=== PATIENT | female | born 1950 | race Caucasian/White ===

== ENCOUNTER → 2016-04-06 | Outpatient (CLI) | payer OTHER ==
[~2016-04-06] MED LIST: ALBUAER19 INH; CLX40 PO; HYDR25TA4 PO; LAMO100T16 PO; OXYC-57 PO; POLY1DRO OPR; PRT/40 PO; TRAZ100T29 PO; TRAZ1TAB8 PO; VERA120T65 PO; losartan
[2016-04-06 12:43] LABS: BLOOD UREA NITROGEN 20 mg/dl (7-18); BUN/CREATININE RATIO 18.2 (10-20); CALCIUM 9.1 mg/dl (8.5-10.1); CARBON DIOXIDE 27 mmol/L (21-32); CHLORIDE 102 mmol/L (98-107); CHOLESTEROL 222 mg/dl (0-200); GLUCOSE 103 mg/dl (70-99); POTASSIUM 3.6 mmol/L (3.5-5.1); SODIUM 139 mmol/L (136-145)
[2016-04-06 12:50] LABS: CHOLESTEROL/HDL RATIO 4.1; HDL CHOLESTEROL 54 mg/dl; LDL CHOLESTEROL CALCULATED 134 mg/dl; TRIGLYCERIDES 169 mg/dl (0-150); VERY LOW DENSITY LIPOPROT CALC 34 mg/dl
--- NOTE | 2016-04-10 14:24 | CODING QUERY MEDICAL NECESSITY ---
SUPPORTING DIAGNOSIS NEEDED A supporting diagnosis is required for the test/procedure performed on this patient in order for us to be reimbursed by the patient's insurance. Please provide a supporting diagnosis for the following test/procedure listed below next to the test name along with your signature. *If there is no additional diagnosis for this patient that would support the following test/procedure please document that below next to the test/procedure. Test(s)/Procedure(s) that require a supporting diagnosis: * VITAMIN D 25 HYDROXY DIAGNOSIS: * DOS: 04/06/16 Provider Signature: Date: Thank you Laura Starr Health Information Management Once completed, please kindly fax back to [phone] For questions please call [phone]
== END | disposition home or self-care (01) ==
LOC: C.LABPVFM 08:19
PROVIDERS: ATTEND Nurse Practitioner
DX: E78.00 Pure hypercholesterolemia, unspecified (principal); I10 Essential (primary) hypertension; R51 Headache; R53.83 Other fatigue; E55.9 Vitamin D deficiency, unspecified

== ENCOUNTER → 2016-06-12 | Outpatient (CLI) | payer OTHER ==
[~2016-06-12] MED LIST changes: -OXYC-57 PO; +PANT40TA2 PO; -PRT/40 PO; -TRAZ1TAB8 PO; +TRAZ1TAB9 PO
== END | disposition home or self-care (01) ==
LOC: C.LABPVFM 09:25
PROVIDERS: ATTEND Nurse Practitioner
DX: E55.9 Vitamin D deficiency, unspecified (principal)

== ENCOUNTER → 2016-06-23 | Outpatient (CLI) | payer OTHER | END | disposition home or self-care (01) | LOC: C.LABPVFM 15:38 | PROVIDERS: ATTEND Nurse Practitioner Family | DX: M79.672 Pain in left foot (principal) ==

== ENCOUNTER → 2016-11-03 | Outpatient (CLI) | payer OTHER ==
[~2016-11-03] MED LIST changes: -PANT40TA2 PO; -POLY1DRO OPR; +PRT/40 PO; +TRAZ1TAB8 PO; -TRAZ1TAB9 PO
--- NOTE | 2016-11-03 12:24 | DIAGNOSTIC IMAGING REPORT ---
C-SPINE ROUTINE 4 OR 5 VIEWS CLINICAL HISTORY: F30.9, M54.2 chronic neck pain. COMPARISON STUDY: 03/10/2015 FINDINGS: There is slight straightening of normal cervical lordosis. No acute fractures or subluxations are visualized. The prevertebral soft tissues are normal. There are multilevel degenerative changes. There is uncovertebral joint spurring. There is possible right-sided foraminal narrowing at the C6-7 level.. IMPRESSION: Multilevel degenerative change. No fractures subluxations or destructive lesions are visualized Electronically signed by: Ruddy Atkins M.D. 11/03/2016 12:22 PM Dictated Date/Time: 11/03/2016 12:21 PM
== END | disposition home or self-care (01) ==
LOC: C.RADPV 11:41
PROVIDERS: ATTEND Nurse Practitioner
DX: M50.323 Other cervical disc degeneration at C6-C7 level (principal); F30.9 Manic episode, unspecified

== ENCOUNTER → 2016-12-05 | Outpatient (CLI) | payer OTHER ==
[~2016-12-05] MED LIST changes: -TRAZ1TAB8 PO
--- NOTE | 2016-12-12 13:37 | POLYSOMNOGRAPH REPORT ---
CLINICAL DATA: A 66-year-old female with a BMI of 44.4 referred by Pebbles Goldman for symptoms of insomnia and increasing daytime sleepiness. On the evening of 12/05/2016, a home sleep apnea test was performed using a Heyy type 3 monitor. RECORDING RESULTS: Total recording time was 10 hours. The patient's estimated sleep time and patient monitoring time was 7.7 hours. RESPIRATORY DATA: Mild sleep apnea was documented. The THIAGO was 8.5. There were 2 obstructive, 2 mixed, and 1 central apneic episode recorded. There were 60 hypopneic episodes recorded. The longest respiratory event was 37 seconds. OXIMETRY DATA: Nocturnal hypoxemia was seen. Oxygen moe was 82%. Mean saturation was 90%. Time below 89% was 48 minutes. HEART RATES: Heart rates ranged from 56-64 beats per minute. SNORING DATA: Snoring was recorded intermittently throughout the night. The patient was noted to have snoring throughout the test with a few apneas and intermittent hypopneas occurring primarily when she was sleeping supine. IMPRESSION: Mild sleep apnea/hypopnea with an THIAGO of 8.5 with nocturnal hypoxemia occurring primarily while supine. RECOMMENDATIONS: The patient may benefit from weight loss, positional therapy, use of an oral appliance, or a repeat sleep study with CPAP. Clinical correlation is needed. [facility]
== END | disposition home or self-care (01) ==
LOC: C.NEUR 09:50
PROVIDERS: ATTEND Nurse Practitioner
DX: R40.0 Somnolence (principal); R53.83 Other fatigue

== ENCOUNTER → 2016-12-12 | Outpatient (CLI) | payer OTHER ==
[2016-12-12 13:56] LABS: BLOOD UREA NITROGEN 18 mg/dl (7-18); BUN/CREATININE RATIO 16.7 (10-20); CALCIUM 9.2 mg/dl (8.5-10.1); CARBON DIOXIDE 27 mmol/L (21-32); CHLORIDE 105 mmol/L (98-107); GLUCOSE 101 mg/dl (70-99); POTASSIUM 3.5 mmol/L (3.5-5.1); SODIUM 138 mmol/L (136-145)
[2016-12-12 13:59] LABS: CHOLESTEROL 205 mg/dl (0-200); CHOLESTEROL/HDL RATIO 4.1; HDL CHOLESTEROL 50 mg/dl; LDL CHOLESTEROL CALCULATED 128 mg/dl; TRIGLYCERIDES 135 mg/dl (0-150); VERY LOW DENSITY LIPOPROT CALC 27 mg/dl
== END | disposition home or self-care (01) ==
LOC: C.LABPVFM 09:03
PROVIDERS: ATTEND Nurse Practitioner
DX: E55.9 Vitamin D deficiency, unspecified (principal); E78.00 Pure hypercholesterolemia, unspecified; I10 Essential (primary) hypertension

== ENCOUNTER 2017-03-30 06:48 | Inpatient (IN) | payer OTHER ==
[2017-03-07 10:26] VITALS: BMI 46.0
--- NOTE | 2017-03-07 11:22 | PAT Medication Instructions ---
Service Date Mar 07, 2017. Current Home Medication List Cholecalciferol (Vitamin D3), 1 CAP PO QAM Citalopram (Citalopram Hydrobromide), 40 MG PO QAM Hydrochlorothiazide (Hctz), 25 MG PO QAM Lamotrigine (Lamictal), 100 MG PO BID Losartan Potassium (Cozaar), 25 MG PO QAM Pantoprazole (Pantoprazole Sodium), 40 MG PO BID Trazodone Hcl (Trazodone), 150 MG PO HS Verapamil (Calan), 120 MG PO QAM Medication Instructions For Your Scheduled Surgery - Hold the following medications the morning of surgery: Cholecalciferol (Vitamin D3), 1 CAP PO QAM Hydrochlorothiazide (Hctz), 25 MG PO QAM Losartan Potassium (Cozaar), 25 MG PO QAM - Take the following medications the morning of surgery with a sip of water: Lamotrigine (Lamictal), 100 MG PO BID Citalopram (Citalopram Hydrobromide), 40 MG PO QAM Pantoprazole (Pantoprazole Sodium), 40 MG PO BID Verapamil (Calan), 120 MG PO QAM - Take the following medications as scheduled the night before surgery: Trazodone Hcl (Trazodone), 150 MG PO HS Lamotrigine (Lamictal), 100 MG PO BID Pantoprazole (Pantoprazole Sodium), 40 MG PO BID If you have any questions please call us at [phone] or [phone] or [phone]
[2017-03-07 11:34] LABS: PTT PATIENT 28.5 SECONDS (21.0-31.0)
[2017-03-07 11:43] LABS: BASO % 0.4 %; BASO ABS # 0.04 K/uL (0-0.2); EOS % 2.2 %; HEMATOCRIT 38.1 % (37-47); HEMOGLOBIN 12.9 g/dL (12.0-16.0); IG# 0.02 K/uL (0.00-0.02); LYMPH % 23.8 %; LYMPH ABS # 2.16 K/uL (1.2-3.4); MEAN CELL VOLUME 84.7 fL (80-100); MEAN CORPUSCULAR HEMOGLOBIN 28.7 pg (25-34); MEAN CORPUSCULAR HGB CONC 33.9 g/dl (32-36); MEAN PLATELET VOLUME 10.2 fL (7.4-10.4); MONO % 4.7 %; MONO ABS # 0.43 K/uL (0.11-0.59); NEUT % 68.7 %; NEUT ABS # 6.22 K/uL (1.4-6.5); PLATELET COUNT 197 K/uL (130-400); RED CELL DISTRIBUTION WIDTH CV 14.3 % (11.5-14.5); RED CELL DISTRIBUTION WIDTH SD 44.1 fL (36.4-46.3); WHITE BLOOD COUNT 9.07 K/uL (4.8-10.8)
--- NOTE | 2017-03-07 12:05 | DIAGNOSTIC IMAGING REPORT ---
TWO VIEW CHEST CLINICAL HISTORY: Preoperative examination. FINDINGS: PA and lateral chest radiographs are compared to study dated 10/16/2014. Correlation is made with an 01/31/[address] A right subclavian central venous infusion port is unchanged in position. The heart is enlarged and there is atherosclerotic calcification of the thoracic aorta. The pulmonary vasculature is noncongested. Chronic interstitial thickening and scattered calcified granulomas are similar to previous. No airspace consolidation or pleural effusion is identified. There is no pneumothorax. The skeletal structures are osteopenic. Degenerative change is seen throughout the thoracic spine. Cholecystectomy clips are noted. IMPRESSION: Cardiomegaly with no active disease in the chest. Electronically signed by: Satya Gonzalez M.D. 03/07/2017 12:03 PM Dictated Date/Time: 03/07/2017 12:02 PM
[2017-03-07 13:38] LABS: CALCIUM 9.1 mg/dl (8.5-10.1); CREATININE 1.13 mg/dl (0.60-1.20); POTASSIUM 3.3 mmol/L (3.5-5.1)
--- NOTE | 2017-03-29 07:24 | HISTORY & PHYSICAL EXAMINATION ---
DATE OF ADMISSION: 03/30/2017 CHIEF COMPLAINT: Primary osteoarthritis of the right knee. HISTORY OF PRESENT ILLNESS: Gay is a pleasant 66-year-old female who has been having a several year history of increasing right knee pain. X-rays and clinical examination have been diagnostic for primary osteoarthritis of the right knee. After failing extensive conservative treatment including multiple injections, she elected to proceed with a right total knee arthroplasty. She understands all the risks, benefits, alternatives to the procedure and has elected to proceed. PAST MEDICAL HISTORY: Significant for hypertension, sleep apnea, bipolar disorder, osteoarthritis, obesity, GERD. PAST SURGICAL HISTORY: Significant for hysterectomy, port placement, lymph node biopsy, ileostomy with reversal, cholecystectomy, ORIF of the right ankle and cataracts. ALLERGIES: INCLUDE CIPRO, IMITREX, LIDOCAINE, NOVOCAIN, PROCAINE, QUINOLONES, SUMATRIPTAN AND THEOPHYLLINE. MEDICATIONS Include pantoprazole 40 mg twice a day, lamotrigine 100 mg twice a day, trazodone 150 mg at bedtime, losartan 25 mg daily, verapamil 120 mg daily, hydrochlorothiazide 25 mg daily, Celexa 40 mg daily and Vitamin D3 2000 units daily. SOCIAL HISTORY: She is . She rarely drinks. She does little activity and she is on disability for bipolar disorder. FAMILY HISTORY: Significant for brain tumor and lung cancer. REVIEW OF SYSTEMS: She complains mostly of right knee pain. All other pertinent review of systems are negative. PHYSICAL EXAMINATION: CONSTITUTIONAL: She is a well-developed, well-nourished female in no apparent distress. HEENT: Pupils equal, round and reactive to light. Extraocular movements intact. Oral mucosa is pink and moist. HEART: Regular rate per radial pulse. LUNGS: Sahra symmetrically bilaterally with no audible breath sounds. ABDOMEN: Soft, nontender, nondistended. MUSCULOSKELETAL: On physical examination of the right knee, she has a large soft tissue envelope and a slight varus deformity. She has tenderness to palpation over the distal femoral condyle and over the medial joint line. She has good range of motion from 0-130 degrees. No instability. She has 5/5 muscle strength with quad and hamstring testing. IMAGING DATA: X-rays of the right knee do show advanced osteoarthritis mostly involving the medial compartment, joint space narrowing and osteophyte formation. IMPRESSION: Medial compartmental arthritis of the right knee. PLAN: We will proceed with a right total knee arthroplasty. Postoperatively, she will be kept in the hospital for 2 midnights for postoperative medical management. We will start her on aspirin for DVT prophylaxis.
[~2017-03-30] VITALS: Ht 160 cm; Wt 120.3 kg
[~2017-03-30 06:48] MED LIST changes: +ACETAMINOPHEN 500 MG TAB PO SCH; -ALBUAER19 INH; +BUPIVACAINE 0.25% 30 ML VIAL ONE; +BUPIVACAINE 0.5 % 5 MG/1 ML PF 10ML VIAL ONE; +CEFAZOLIN 3000MG IV PUSH 15 ML IV SCH; +CHOL2000 PO; +FAMOTIDINE 20 MG TAB PO SCH; +GABAPENTIN 300 MG CAP PO SCH; +LACTATED RINGER'S 1000ML 1,000 ML IV SCH; +LACTATED RINGER'S 1000ML 500 ML IV SCH; +LACTATED RINGER'S 1000ML IV SCH; +LOSA1TAB PO; +PANT40TA2 PO; -PRT/40 PO; +ROPIVACAINE 5MG/ML 30 ML 150 MG, BUPIVACAINE 0.5% MPF INJ 30 ML, EpINEphrine HCL INJ 0.... INFIL SCH; +VERA120T15 PO; -VERA120T65 PO; -losartan
--- NOTE | 2017-03-30 06:53 | History & Physical Bridge Note ---
H&P Re-Evaluation Bridge Note: I have examined the patient, reviewed the History & Physical and in the interval since the performance of the History & Physical I have noted the following changes of clinical significance: No changes noted
[2017-03-30] MEDS ORDERED: PROPOFOL IV EMULSION 10 MG/ML 20 ML VIAL IV ONE (07:21)
[2017-03-30] MEDS ORDERED: MIDAZOLAM HCL 1 MG/ML 2ML VIAL ONE (07:22)
[2017-03-30] MEDS ORDERED: FENTANYL CITRATE INJ 50 MCG/1 ML 2 ML VIAL ONE (07:22)
[2017-03-30 07:25] VITALS: BP 112/70; PULSE 84; TEMP 36.7; O2SAT 95; Ht 160 cm; Wt 120.3 kg
[2017-03-30] MEDS ORDERED: BACITRACIN 50000 UNIT VIAL ONE (07:35)
[2017-03-30] MEDS ORDERED: ORTHO JOINT ANESTHETIC ONE (07:35)
[2017-03-30] MEDS ORDERED: ONDANSETRON INJ 2 MG/ML 2 ML VIAL IV PRN ×3 (08:00→10:15)
[2017-03-30] MEDS ORDERED: EpHEDrine SULFATE INJ 50 MG/ML AMP IV PRN ×2 (08:00→09:45)
[2017-03-30] MEDS ORDERED: ATROPINE SULFATE 0.1 MG/ML 5ML SYR IV PRN ×2 (08:00→09:45)
[2017-03-30] MEDS ORDERED: FENTANYL CITRATE INJ 50 MCG/1 ML 2 ML VIAL IV PRN (08:00)
[2017-03-30] MEDS: TRANEXAMIC ACID INJ 1,000 MG in SYRINGE 0 ML IV SCH ×2 (08:31→12:56)
[2017-03-30] MEDS ORDERED: NALOXONE HCL 0.4 MG/1 ML VIAL/CARP IV PRN (09:45)
[2017-03-30] MEDS ORDERED: FLUMAZENIL 0.1 MG/1 ML 10 ML VIAL IV PRN (09:45)
[2017-03-30] MEDS ORDERED: PROMETHAZINE HCL INJ 12.5 MG in SODIUM CHLORIDE 0.9% 50ML 50 ML IV PRN (09:45)
--- NOTE | 2017-03-30 10:13 | [facility] Post Operative Brief Note ---
Immediate Operative Summary Operative Date Mar 30, 2017. Pre-Operative Diagnosis Degenerative Joint Disease Right Knee Post-Operative Diagnosis Degenerative Joint Disease Right Knee Procedure(s) Performed Right Total Knee Arthroplasty Surgeon Bentley Automatic Spinning Lathe Setter Surgeon(s) Marco A Estimated Blood Loss 10ml Findings Consistent with Post-Op Diagnosis Specimens Right Knee Bone and Tissue Anesthesia Type MAC Spinal Regional Complication(s) none Disposition Disposition: Recovery Room / PACU
[2017-03-30] MEDS ORDERED: MoRPHine SULFATE 2 MG/ML CARP IV PRN (10:15)
[2017-03-30] MEDS ORDERED: SOD PHOSPHATE/SOD BIPHOSPHATE ENEMA 132 ML BTL PR PRN (10:15)
[2017-03-30] MEDS ORDERED: MAGNESIUM HYDROXIDE SUSP 30 ML UDC PO PRN (10:15)
[2017-03-30] MEDS ORDERED: BISACODYL 10 MG SUPP PR PRN (10:15)
[2017-03-30] MEDS ORDERED: CEFAZOLIN IV 2,000 MG in DEXTROSE 5% 50ML 50 ML IV SCH (10:15)
[2017-03-30] MEDS ORDERED: METOCLOPRAMIDE HCL INJ 5 MG/ML 2 ML VIAL IV PRN (10:15)
--- NOTE | 2017-03-30 11:24 | Anesthesiology Progress Note ---
Anesthesia Post Op Note Date & Time Mar 30, 2017 at 11:23 Vital Signs Pain Intensity: 0 Vital Signs Past 12 Hours Date Time Temp Pulse Resp B/P (MAP) Pulse Ox O2 Delivery O2 Flow Rate FiO2 03/30/17 11:20 73 22 98 03/30/17 11:20 36.8 72 22 03/30/17 11:16 131/57 03/30/17 11:15 71 20 99 03/30/17 11:15 71 20 03/30/17 11:11 124/63 03/30/17 11:10 74 11 97 03/30/17 11:10 75 11 03/30/17 11:06 127/66 03/30/17 11:05 72 14 96 03/30/17 11:05 72 14 03/30/17 11:01 128/53 03/30/17 11:00 71 14 03/30/17 11:00 72 14 97 03/30/17 10:56 130/57 03/30/17 10:55 73 16 96 03/30/17 10:55 75 16 03/30/17 10:51 104/61 03/30/17 10:50 75 14 100 03/30/17 10:50 75 14 03/30/17 10:47 98/47 03/30/17 10:35 36.5 74 16 98/51 98 Oxymask 4 03/30/17 07:25 36.7 84 20 112/70 95 Room Air Notes Mental Status: alert / awake / arousable, participated in evaluation Pt Amnestic to Procedure: Yes Nausea / Vomiting: adequately controlled Pain: adequately controlled Airway Patency, RR, SpO2: stable & adequate BP & HR: stable & adequate Hydration State: stable & adequate Neuraxial Anesthesia: was administered, sensory block is resolving Anesthetic Complications: no major complications apparent Patient satisfied with her care today. Denied any headache but stated neck muscles slightly sore from positioning but otherwise no issues. VSS. No complications.
--- NOTE | 2017-03-30 11:32 | DIAGNOSTIC IMAGING REPORT ---
R KNEE 1 OR 2 VIEWS ROUTINE CLINICAL HISTORY: AP/LATERAL IN PACU RIGHT KNEE postoperative evaluation COMPARISON: None. DISCUSSION: Anatomic alignment status post total right knee arthroplasty. Good contact between prosthetic and underlying bone. Surgical drains are in position. Expected soft tissue postoperative change IMPRESSION: Anatomic alignment status post total right knee arthroplasty. The above report was generated using voice recognition software. It may contain grammatical, syntax or spelling errors. Electronically signed by: Samy Edmond M.D. 03/30/2017 11:30 AM Dictated Date/Time: 03/30/2017 11:30 AM
[2017-03-30 11:35] VITALS: BP 126/64; PULSE 71; TEMP 36.7; O2SAT 93
[2017-03-30] MEDS: SODIUM CHLORIDE 0.9% 1000ML 1,000 ML IV SCH ×2 (11:45→23:29)
[2017-03-30 12:05] VITALS: BP 135/67; PULSE 71; O2SAT 94
[2017-03-30] MEDS: KETOROLAC TROMETHAMINE 30 MG/ML VIAL IV. SCH ×3 (13:23→23:47)
[2017-03-30 13:35] VITALS: BP 130/64; PULSE 70; TEMP 36.8; O2SAT 94
[2017-03-30] MEDS: ACETAMINOPHEN IV 1,000 MG in EMPTY BAG 0 ML IV SCH ×2 (13:55→21:21)
--- NOTE | 2017-03-30 15:20 | OPERATIVE REPORT ---
DATE OF OPERATION: 03/30/2017 PREOPERATIVE DIAGNOSIS: Primary osteoarthritis of the right knee. POSTOPERATIVE DIAGNOSIS: Same. PROCEDURE: Right total knee arthroplasty. SURGEON: Dr. Nick Hagan. IRONWORKER HELPER SHOP: Louie Strickland PA-C, whose assistance was necessary for retraction and closure. ANESTHESIA: Spinal with a right adductor nerve block. COMPLICATIONS: None. CONDITION: Stable to PACU. INDICATIONS: Gay is a pleasant 66-year-old female who presented to my office with chronic increasing right knee pain. X-rays and clinical examination were diagnostic for primary osteoarthritis of the right knee. After failing conservative treatment, she elected to undergo a right total knee arthroplasty. DESCRIPTION OF PROCEDURE: On 03/30/2017, she arrived at [facility] for the above procedure. She was seen in the preoperative holding area and the operative extremity was identified and signed. She was given a preoperative antibiotic and a right adductor nerve block and a spinal anesthetic. She was taken back to the operating room, laid on the table in supine position and given basic sedation. The right knee was then prepped and draped in sterile fashion. Time-out was done and the patient's operative extremity was properly identified. A midline incision was made directly over the patella. Dissection was taken down through the fascia and a medial parapatellar arthrotomy was used. The medial retinaculum was released and the knee was flexed. A drill was sent down the center of the femoral canal, followed by an intramedullary vilma. Off that vilma, a distal femoral cutting block was placed. A 12 mm was resected off the distal femur at 5 degrees of valgus. A posterior referencing guide was then used to measure the distal femur and it measured to be a size 65. Two drill holes were placed in 3 degrees of external rotation and a 4-in-1 cutting block was impacted into place. Anterior, posterior and chamfer cuts were then made. A box cutting guide was then impacted into place and the box was resected for the posterior stabilizing component. The proximal tibia was then exposed. A drill was sent down the center of the tibial canal followed by an intramedullary vilma. Off that vilma, a proximal tibial resection guide was placed and 2 mm was resected off the low medial side. The tibia measured to be a size 67 and it was set in the appropriate rotation, drilled and then punched. The posterior aspect of the knee was opened up and any additional soft tissue remnants or bony osteophytes were removed. Trial components were placed. The knee was brought through a full range of motion and felt to be stable. The patella was then everted and 8 mm was resected off the posterior aspect of the patella. The patella measured to be a size 31 and 3 peg holes were drilled. Trials were then removed. The surrounding soft tissues of the knee were then injected with 100 mL of an orthopedic pain control cocktail. The tibial, femoral and patellar components were then cemented in place with Palacos-G cement. Once cement had hardened, several polys were trialed and a size 10 seemed to be the best fit. The final size 10 poly was then snapped into place and the anterior bar was locked. The knee was then irrigated with 3 liters of normal saline solution with bacitracin. The 2 drains were placed. The extensor mechanism was closed with #2 FiberWire suture in the superior medial aspect and #1 Vicryl, both proximally and distally. The skin was closed with 2-0 Vicryl, 3-0 V-Loc suture and mari. She was then placed in a soft compressive dressing and taken to the postanesthesia care unit in stable condition. She tolerated the procedure well. IMPLANTS USED: I used a [employer] total knee arthroplasty system with a size 65 right femur, a size 67 tibia, a size 31 x 8 patella and a size 10 posterior stabilized polyethylene insert. I attest to the content of the Intraoperative Record and any orders documented therein. Any exception s are noted below.
[2017-03-30] MEDS: OXYCODONE HCL IR 5 MG TAB (IMMEDIATE RELEASE) PO PRN (16:05)
[2017-03-30] MEDS: CEFAZOLIN IV 2,000 MG in SYRINGE 0 ML IV SCH ×2 (17:53→23:46)
[2017-03-30 20:00] VITALS: BP 106/64; PULSE 63; TEMP 36.7; O2SAT 94
[2017-03-30] MEDS: DOCUSATE SODIUM 100 MG CAP PO SCH (21:00)
[2017-03-30] MEDS: PANTOprazole SOD 40 MG TAB PO SCH (21:17)
[2017-03-30] MEDS: TRAZODONE HCL 100 MG TAB PO SCH (21:17)
[2017-03-30] MEDS: ASPIRIN 325 MG ECTAB PO SCH (21:17)
[2017-03-30] MEDS: SENNA 8.6 MG TAB PO SCH (21:17)
[2017-03-30 23:25] VITALS: BP 117/66; PULSE 53; TEMP 36.5; O2SAT 96
[2017-03-31 03:41] VITALS: BP 139/64; PULSE 68; TEMP 36.5; O2SAT 94
[2017-03-31] MEDS: KETOROLAC TROMETHAMINE 30 MG/ML VIAL IV. SCH ×4 (05:31→23:53)
[2017-03-31] MEDS: ACETAMINOPHEN IV 1,000 MG in EMPTY BAG 0 ML IV SCH ×3 (05:32→21:58)
[2017-03-31 05:50] LABS: HEMATOCRIT 32.3 % (37-47); HEMOGLOBIN 10.8 g/dL (12.0-16.0); MEAN CELL VOLUME 85.2 fL (80-100); MEAN CORPUSCULAR HEMOGLOBIN 28.5 pg (25-34); MEAN CORPUSCULAR HGB CONC 33.4 g/dl (32-36); MEAN PLATELET VOLUME 10.1 fL (7.4-10.4); PLATELET COUNT 163 K/uL (130-400); RED CELL DISTRIBUTION WIDTH CV 14.5 % (11.5-14.5); RED CELL DISTRIBUTION WIDTH SD 44.6 fL (36.4-46.3); WHITE BLOOD COUNT 14.98 K/uL (4.8-10.8)
[2017-03-31] MEDS ORDERED: NURSING DECISION MEDICATION ORDER SCH (06:15)
[2017-03-31 06:24] LABS: CALCIUM 8.3 mg/dl (8.5-10.1); CREATININE 1.46 mg/dl (0.60-1.20); POTASSIUM 3.7 mmol/L (3.5-5.1)
[2017-03-31 06:40] VITALS: BP 101/58; PULSE 59; TEMP 36.5; O2SAT 95
[2017-03-31] MEDS: OXYCODONE HCL IR 5 MG TAB (IMMEDIATE RELEASE) PO PRN ×3 (07:57→22:06)
[2017-03-31] MEDS: CITALOPRAM 40 MG TAB PO SCH (08:02)
[2017-03-31] MEDS: LOSARTAN POTASSIUM 25 MG TAB PO SCH (08:02)
[2017-03-31] MEDS: DOCUSATE SODIUM 100 MG CAP PO SCH ×2 (08:02→21:00)
[2017-03-31] MEDS: MULTIVITAMIN TAB PO SCH (08:02)
[2017-03-31] MEDS: VERAPAMIL HCL 120 MG TABCR PO SCH (08:02)
[2017-03-31] MEDS: PANTOprazole SOD 40 MG TAB PO SCH ×2 (08:03→21:57)
[2017-03-31] MEDS: HYDROCHLOROTHIAZIDE 25 MG TAB PO SCH (08:03)
[2017-03-31] MEDS: ASPIRIN 325 MG ECTAB PO SCH ×2 (08:03→23:53)
[2017-03-31 08:07] VITALS: BP 158/64; PULSE 71
[2017-03-31] MEDS: SODIUM CHLORIDE 0.9% 1000ML 1,000 ML IV SCH (09:00)
--- NOTE | 2017-03-31 09:28 | PROGRESS NOTE ---
DATE: 03/31/2017 CHIEF COMPLAINT: Status post right total knee arthroplasty postop day #1. PROGRESS: Gay was seen and examined at bedside today. Overall, she is doing fairly well. She has some soreness in the knee, but it is not too bad. She has been up and using the bathroom often. The drains had fallen out overnight. She has no other complaints. PHYSICAL EXAMINATION: RIGHT LEG: The dressing is clean and dry and the drains have been pulled. Her leg lengths are equal. She has active dorsiflexion and plantarflexion of her right ankle and sensation is intact. LABORATORY DATA: She has an H&H today of 10.8 and 32.3. Her glucose is 125. Her vital signs are all stable on room air and she is voiding on her own. X-rays postoperatively of the right knee showed the prosthesis to be in anatomical alignment without any evidence of fracture, dislocation or loosening. IMPRESSION: Status post right total knee arthroplasty postop day #1. PLAN: At this point, she is doing very well. She will be up and ambulating more today with physical therapy. Tomorrow morning, the nurses can change the dressing and we will look at discharging her to home.
[2017-03-31 11:45] VITALS: BP 102/61; PULSE 53; TEMP 36.7; O2SAT 93
[2017-03-31 15:43] VITALS: BP 112/55; PULSE 61; TEMP 37; O2SAT 93
[2017-03-31] MEDS: SENNA 8.6 MG TAB PO SCH (21:00)
[2017-03-31] MEDS: TRAZODONE HCL 100 MG TAB PO SCH (21:57)
[2017-03-31 23:05] VITALS: BP_SYST 81; BP_SYST 87; BP_SYST 89; BP_DIAS 35; BP_DIAS 53; BP_DIAS 58; PULSE 65; TEMP 36.6; O2SAT 95
[2017-04-01 00:45] VITALS: BP 104/51; PULSE 61
[2017-04-01] MEDS: ACETAMINOPHEN IV 1,000 MG in EMPTY BAG 0 ML IV SCH (05:56)
[2017-04-01] MEDS: KETOROLAC TROMETHAMINE 30 MG/ML VIAL IV. SCH (05:56)
[2017-04-01 07:29] VITALS: BP 138/66; PULSE 66; TEMP 36.6; O2SAT 91
[2017-04-01] MEDS: DOCUSATE SODIUM 100 MG CAP PO SCH (08:53)
[2017-04-01] MEDS: VERAPAMIL HCL 120 MG TABCR PO SCH (08:54)
[2017-04-01] MEDS: PANTOprazole SOD 40 MG TAB PO SCH (08:54)
[2017-04-01] MEDS: CITALOPRAM 40 MG TAB PO SCH (08:54)
[2017-04-01] MEDS: HYDROCHLOROTHIAZIDE 25 MG TAB PO SCH (08:54)
[2017-04-01] MEDS: ASPIRIN 325 MG ECTAB PO SCH (08:55)
[2017-04-01] MEDS: MULTIVITAMIN TAB PO SCH (08:55)
[2017-04-01] MEDS: LOSARTAN POTASSIUM 25 MG TAB PO SCH (08:55)
[2017-04-01] MEDS ORDERED: RXC5 PO (09:33)
[2017-04-01] MEDS ORDERED: ASPEC325 PO (09:33)
--- NOTE | 2017-04-01 09:35 | Discharge Instructions ---
Discharge Instructions Date of Service Apr 01, 2017. Admission Reason for Admission: Right Knee Degenerative Joint Disease Discharge Discharge Diagnosis / Problem: Right Total Knee Discharge Goals Goal(s): Decrease discomfort, Improve function Activity Recommendations Activity Limitations: as noted below . Instructions / Follow-Up Instructions / Follow-Up Activity and Therapy Recommendations: * If you are using [facility] then Physical Therapy will be provided until they feel you are ready to start Outpatient Physical Therapy. If you are not using a Home Health agency then Outpatient Physical Therapy should start about 3-5 days from your day of surgery. Therapy will last about 6-10 weeks * It is important not to put a pillow under your knee when you are relaxing or sleeping. It is just as important to make sure you are getting your knee perfectly straight as it is to regain your knee bend. * You were shown a series of exercises in the hospital. Do these exercises three times each day including the exercises you were shown in physical therapy. * Get up and walk several times each day. For the first four weeks, try not to stand or walk for more than one hour at a time. If you do stand or walk for more than one hour, you will not hurt anything, but your leg will likely swell. * As you feel comfortable, you may change from the walker or crutches to a cane and then to independent walking. Medications: * Narcotic You will likely be sent home from the hospital with a prescription for the narcotic pain medication that worked best throughout your stay. * Aspirin Most patients will be required to take Aspirin 325mg twice a day for 6 weeks after surgery. This is obtained [id number] and a prescription is not necessary. * Other medications may be prescribed for specific circumstances. If you have any questions, please call the office at . * Resume previous home medications unless otherwise instructed TEDs/Elastic Stockings: The white elastic stockings help limit swelling and prevent blood clots from forming in your legs.~ The more you wear them, the more they work. Wear them for six weeks. Showering: You may shower 5 days from the day of surgery. Let the soapy shower water run over the mari. Do not scrub or soak the incision. Things To Watch For: * Drainage from the incision site that occurs more than one week after your surgery. * Increased redness at the incision site. * Fever above 102 degrees Fahrenheit. * Unusual chest pain or shortness of breath. * Call [facility] at with any of the above problems Follow-Up Visit: Follow-up with Dr. Hagan 2 weeks after your day of surgery. An appointment was probably scheduled when you signed-up for surgery in the office. If you have any questions call Office Instructions: More detailed instructions as well as Frequently Asked Questions were provided in a folder by our office when you signed-up for surgery. Please review these instructions when you get home. If you have any further questions or concerns, please feel free to call the office at [phone] Current Hospital Diet Patient's current hospital diet: Regular Diet Discharge Diet Recommended Diet: Regular Diet Procedures Procedures Performed: Right Total Knee Arthroplasty Pending Studies Studies pending at discharge: no Medical Emergencies . Who to Call and When: Medical Emergencies: If at any time you feel your situation is an emergency, please call [phone] immediately. . Non-Emergent Contact Non-Emergency issues call your: Surgeon . "Provider Documentation" section prepared by Nick Hagan. . VTE Core Measure Inpt VTE Proph given/why not?: Other Anticoagulation (Aspirin 325 twice a day for 6 weeks)
--- NOTE | 2017-04-01 09:50 | PROGRESS NOTE ---
DATE: 04/01/2017 CHIEF COMPLAINT: Status post right total knee arthroplasty postop day #2. PROGRESS: Gay was seen and examined at bedside today. Overall, she is doing fairly well. She has been up and ambulating well with physical therapy. She was a little hypotensive yesterday, but her blood pressure is much better today. She said she does not feel dizzy or unsteady when she is ambulating. PHYSICAL EXAMINATION: RIGHT KNEE: The dressing has been changed and the drain has been pulled. She is lying with her leg out in full extension. She is neurovascularly intact. IMPRESSION: Status post right total knee arthroplasty postop day #2. PLAN: At this point, she is doing fairly well. Her blood pressures have returned to normal. I encouraged a lot of p.o. fluid intake and she is not having any dizziness. She has been working well with physical therapy. She is on aspirin for DVT prophylaxis and we will likely discharge her to home later today.
[2017-04-01 09:58] VITALS: BP 138/66; PULSE 66; TEMP 36.6; O2SAT 91
--- NOTE | 2017-04-01 10:00 | DISCHARGE SUMMARY ---
DISCHARGE DIAGNOSIS: Primary osteoarthritis of the right knee. PROCEDURE: Right total knee arthroplasty on 03/30/[address] Nick Hagan. DISCHARGE INSTRUCTIONS: 1. Aspirin 325 mg twice a day for 6 weeks. 2. Oxycodone 5-10 mg every 4 hours as needed for pain. 3. Vitamin D 2000 units daily. 4. Celexa 40 mg daily. 5. HCTZ 25 mg daily. 6. Lamictal 100 mg twice a day. 7. Cozaar 25 mg daily. 8. Protonix 40 mg daily. 9. Trazodone 150 mg at night. 10. Verapamil 120 mg daily. 11. Daily dry dressing changes. 12. Follow up with Dr. Hagan in 2 weeks. 13. Call the office of Dr. Hagan with any questions or concerns. HOSPITAL COURSE: Gay is a pleasant 66-year-old female who presented to my office with complaints of chronic right knee pain. X-rays and clinical examination were diagnostic for primary osteoarthritis of the right knee. After failing conservative treatment, she elected to undergo a right total knee arthroplasty. On 03/30/2017, she arrived at [facility] and underwent a right knee replacement without complication. She had a spinal anesthetic and a right adductor nerve block. Postoperatively, she was started on aspirin for DVT prophylaxis and discharged to general orthopedic floor. Her hospital course was uneventful. On postop day #1, her H&H was stable at 10.8 and 32.3. She was up and ambulating well with physical therapy. Her pain was controlled. On postop day #2, she was a little hypotensive early in the morning, but her blood pressure returned to normal. She was up and ambulating well with physical therapy and she was drinking a lot of fluids. She was subsequently discharged to home with the [facility] and the above instructions.
== END 2017-04-01 12:00 | disposition home health service (06) | DRG 470 ==
LOC: C.ACU 06:48 → C.MSW 07:51 → ENRESERV 11:14
PROVIDERS: ADMIT Orthopaedic Surgery; ATTEND Orthopaedic Surgery
PROC: 0SRC0J9 Replacement of Right Knee Joint with Synthetic Substitute, Cemented, Open Approach (ICD-10-PCS; principal; 2017-03-30 09:10)
DX: M17.11 Unilateral primary osteoarthritis, right knee (principal); I10 Essential (primary) hypertension; G47.30 Sleep apnea, unspecified; F31.9 Bipolar disorder, unspecified; E66.9 Obesity, unspecified; K21.9 Gastro-esophageal reflux disease without esophagitis

== ENCOUNTER → 2017-09-26 | Outpatient (CLI) | payer OTHER ==
[~2017-09-26] MED LIST changes: -ACETAMINOPHEN 500 MG TAB PO SCH; +AMT50 PO; -BUPIVACAINE 0.25% 30 ML VIAL ONE; -BUPIVACAINE 0.5 % 5 MG/1 ML PF 10ML VIAL ONE; -CEFAZOLIN 3000MG IV PUSH 15 ML IV SCH; -FAMOTIDINE 20 MG TAB PO SCH; -GABAPENTIN 300 MG CAP PO SCH; +HYDR-5688 PO; +KETO10TA PO; -LACTATED RINGER'S 1000ML 1,000 ML IV SCH; -LACTATED RINGER'S 1000ML 500 ML IV SCH; -LACTATED RINGER'S 1000ML IV SCH; +MECL1TAB42 PO; +MULT-506 PO; +ONDA4TAB10 SL; -ROPIVACAINE 5MG/ML 30 ML 150 MG, BUPIVACAINE 0.5% MPF INJ 30 ML, EpINEphrine HCL INJ 0.... INFIL SCH; -TRAZ100T29 PO; +TRAZ1TAB52 PO
== END | disposition home or self-care (01) ==
LOC: C.PATHSPEC 11:56
PROVIDERS: ATTEND Plastic Surgery
DX: L98.429 Non-pressure chronic ulcer of back with unspecified severity (principal)

== ENCOUNTER 2017-10-08 04:59 | Day surgery (SDC) | payer OTHER ==
[2017-09-26 16:42] VITALS: BMI 46.0
[~2017-10-08] VITALS: Ht 160 cm; Wt 119.1 kg
[~2017-10-08 04:59] MED LIST changes: +CLINDAMYCIN IV 900 MG in DEXTROSE 5% 50ML IV SCH; -HYDR-5688 PO; -KETO10TA PO; -MECL1TAB42 PO; -ONDA4TAB10 SL
[2017-10-08 05:39] VITALS: BP 167/84; PULSE 87; TEMP 36.8; O2SAT 95; Ht 160 cm; Wt 119.1 kg
[2017-10-08] MEDS ORDERED: CLINDAMYCIN IV 900 MG in DEXTROSE 5% 50ML IV SCH (06:00)
[2017-10-08] MEDS ORDERED: LACTATED RINGER'S 1000ML 1,000 ML IV SCH ×2 (06:00→07:58)
[2017-10-08] MEDS ORDERED: PROPOFOL IV EMULSION 10 MG/ML 20 ML VIAL ONE (06:47)
[2017-10-08] MEDS ORDERED: ONDANSETRON INJ 2 MG/ML 2 ML VIAL ONE (06:47)
[2017-10-08] MEDS ORDERED: CEFAZOLIN SOD 1 GM VIAL ONE (06:49)
[2017-10-08] MEDS ORDERED: THROMBIN FOR SOLN 20000 UNIT KIT ONE (06:49)
[2017-10-08] MEDS ORDERED: HEPARIN SOD (PORCINE) 1000 UNIT/ML 10 ML VIAL ONE (06:49)
[2017-10-08] MEDS ORDERED: MIDAZOLAM HCL 1 MG/ML 2ML VIAL ONE (06:49)
[2017-10-08] MEDS ORDERED: LIDOCAINE HCL 1% 20 ML VIAL ONE (06:49)
[2017-10-08] MEDS ORDERED: FENTANYL CITRATE INJ 50 MCG/1 ML 2 ML VIAL ONE (06:49)
--- NOTE | 2017-10-08 06:56 | DIAGNOSTIC IMAGING REPORT ---
CHEST 2 VIEWS ROUTINE CLINICAL HISTORY: Preoperative evaluation. COMPARISON STUDY: Chest radiograph August 30, 2017. FINDINGS: A right subclavian [id number] is in place. There is no pneumothorax or pleural effusion. There is no consolidation or evidence for pulmonary edema. Mild cardiomegaly is noted. Sternal surgical clip is noted. Appearance of the chest is unchanged. IMPRESSION: No acute cardiopulmonary findings. Electronically signed by: Osmar Dockery M.D. 10/08/2017 6:55 AM Dictated Date/Time: 10/08/2017 6:54 AM
[2017-10-08 07:02] LABS: CALCIUM 9.4 mg/dl (8.5-10.1); CREATININE 1.03 mg/dl (0.60-1.20); POTASSIUM 3.4 mmol/L (3.5-5.1)
[2017-10-08] MEDS ORDERED: KETAMINE HCL INJ 50 MG/ML 10 ML VIAL ONE (07:20)
[2017-10-08] MEDS ORDERED: HYDR-5688 PO (07:44)
--- NOTE | 2017-10-08 07:58 | Discharge Instructions ---
Discharge Instructions Date of Service Oct 08, 2017. Visit Reason for Visit: Vascular Port Complication Discharge Discharge Diagnosis / Problem: A-port Discharge Goals Goal(s): Therapeutic intervention Activity Recommendations Activity Limitations: as noted below Shower/Bathe: keep incision dry (for 2 days) Driving or Machine Use: resume 1 day after discharge Anesthesia . Post Anesthesia Instructions: If you have had General Anesthesia or IV Sedation: * Do not drive today. * Resume driving when surgeon permits. * Do not make important decisions or sign legal documents today. * Call surgeon for: 1. Temperature elevations greater than 101 degrees F. 2. Uncontrollable pain. 3. Excessive bleeding. 4. Persistent nausea and vomiting. 5. Medication intolerance (nausea, vomiting or rash). * For nausea and vomiting use only clear liquids such as: tea, soda, bouillon until nausea subsides, then gradually increase diet as tolerated. * If you have any concerns or questions, call your surgeon's office. If physician is unavailable and it is an emergency, call 911 or go to the nearest emergency room. . Instructions / Follow-Up Instructions / Follow-Up Dr. Dixon's office in 2 weeks for suture removal, call [phone] if you have any questions or to schedule Diet Recommendations Recommended Home Diet: no limitations Pending Studies Studies pending at discharge: no Medical Emergencies . Who to Call and When: Medical Emergencies: If at any time you feel your situation is an emergency, please call 911 immediately. . Non-Emergent Contact Non-Emergency issues call your: Surgeon Call Non-Emergent contact if: you have a fever, temperature is above 101.5, your pain is not controlled, wound has increased redness, wound has increased pain . . "Provider Documentation" section prepared by Jacob Valadez. .
[2017-10-08] MEDS ORDERED: ONDANSETRON INJ 2 MG/ML 2 ML VIAL IV PRN ×2 (08:00→08:15)
[2017-10-08] MEDS ORDERED: MoRPHine SULFATE 2 MG/ML CARP IV PRN (08:00)
[2017-10-08] MEDS ORDERED: HYDROCODONE/ACETAMIN 5/325MG TAB PO PRN ×3 (08:00→08:15)
--- NOTE | 2017-10-08 08:03 | [facility] Operative Report ---
Operative Report Operative Date Oct 08, 2017. Pre-Operative Diagnosis Need for IV access Post-Operative Diagnosis Same, dysfunctional port Procedure(s) Performed port removal port placement Surgeon Dr Dixon [employer] Coordinator Surgeon(s) None Estimated Blood Loss 10 cc Findings placed via Rt subclavian vein Drains None Anesthesia Type MAC Complication(s) none Disposition Recovery Room / PACU I attest to the content of the Intraoperative Record and any orders documented therein. Any exceptions are noted below.
[2017-10-08 08:13] VITALS: BP 138/74; PULSE 82; TEMP 36.8; O2SAT 92
[2017-10-08] MEDS ORDERED: EpHEDrine SULFATE INJ 50 MG/ML AMP IV PRN (08:15)
[2017-10-08] MEDS ORDERED: FLUMAZENIL 0.1 MG/1 ML 10 ML VIAL IV PRN (08:15)
[2017-10-08] MEDS ORDERED: NALOXONE HCL 0.4 MG/1 ML VIAL/CARP IV PRN (08:15)
[2017-10-08] MEDS ORDERED: HYDROmorphone INJ 2 MG/ML SYR/VIAL IV PRN (08:15)
[2017-10-08] MEDS ORDERED: LABETALOL HCL IV 5 MG/ML 20ML IV PRN (08:15)
[2017-10-08] MEDS ORDERED: MEPERIDINE HCL 25 MG/ML CARP IV PRN (08:15)
[2017-10-08] MEDS ORDERED: FENTANYL CITRATE INJ 50 MCG/1 ML 2 ML VIAL IV PRN (08:15)
[2017-10-08] MEDS ORDERED: ATROPINE SULFATE 0.1 MG/ML 5ML SYR IV PRN (08:15)
[2017-10-08] MEDS ORDERED: PHENYLEPHRINE 100MCG/ML 5ML SYR IV PRN (08:15)
--- NOTE | 2017-10-08 08:16 | OPERATIVE REPORT ---
DATE OF OPERATION: 10/08/2017 PREOPERATIVE DIAGNOSIS: Port replacement. POSTOPERATIVE DIAGNOSIS: Port replacement. PROCEDURE: I was able to use fluoroscopy during the port placement to localize the catheter to the superior vena cava. The patient tolerated the procedure well. I attest to the content of the Intraoperative Record and any orders documented therein. Any exception s are noted below.
--- NOTE | 2017-10-08 08:23 | OPERATIVE REPORT ---
DATE OF OPERATION: 10/08/2017 NAME OF OPERATION: Port removal and port placement with fluoroscopy. SURGEON: Eliceo Dixon MD. ANESTHESIA: Local sedation. DESCRIPTION OF PROCEDURE: Patient was brought in the operating room and placed on the operating table in supine position. She was morbidly obese. I did tape to her right breast to pull the tissue inferiorly to expose the port in a better fashion. Her right chest and neck were prepped and draped in the usual fashion. The port was palpable, it was very deep. 1% plain lidocaine was used to anesthetize skin and subcutaneous tissue in the right chest. Through the prior scar, I made an incision, carrying dissection down deeply identifying the old port. Port was removed from the pocket. The catheter was transected and a wire passed under fluoroscopy. The catheter was then removed, and then the dilator and introducer passed over the wire and then the dilator and wire removed. The new catheter was passed through the introducer, positioned appropriately in the superior vena cava using fluoroscopy. The introducer was removed. The catheter was aspirated and flushed with heparinized solution. A pocket was fashioned in the subcutaneous tissue, which was much more superficial than the old port site. The new port was attached to the catheter. It had been aspirated and flushed with heparinized solution, placed into the pocket, and secured using 3-0 Prolene suture. At this point, the deep tissue was reapproximated using 2-0 chromic suture and then the skin reapproximated using 4-0 nylon suture. Patient was transferred to recovery room in stable condition. I attest to the content of the Intraoperative Record and any orders documented therein. Any exception s are noted below.
[2017-10-08 08:31] VITALS: BP 138/74; PULSE 82; TEMP 36.8; O2SAT 92
--- NOTE | 2017-10-08 08:44 | Anesthesiology Progress Note ---
Anesthesia Post Op Note Date & Time Oct 08, 2017 at 08:43 Vital Signs Pain Intensity: 0 Vital Signs Past 12 Hours Date Time Temp Pulse Resp B/P (MAP) Pulse Ox O2 Delivery O2 Flow Rate FiO2 10/08/17 08:31 36.8 82 18 138/74 92 Room Air 10/08/17 05:39 36.8 87 20 167/84 (111) 95 Room Air Notes Mental Status: alert / awake / arousable, participated in evaluation Pt Amnestic to Procedure: Yes Nausea / Vomiting: adequately controlled Pain: adequately controlled Airway Patency, RR, SpO2: stable & adequate BP & HR: stable & adequate Hydration State: stable & adequate Anesthetic Complications: no major complications apparent
[2017-10-08 08:45] VITALS: BP 131/60; PULSE 83; O2SAT 93
--- NOTE | 2017-10-08 08:50 | DIAGNOSTIC IMAGING REPORT ---
SINGLE VIEW CHEST CLINICAL HISTORY: Central venous infusion port placement. FINDINGS: An AP, portable, upright chest radiograph is compared to study dated 10/08/2017. A right subclavian central venous infusion port has been exchanged. The tip of the catheter projects over the SVC. The cardiomediastinal silhouette is unremarkable noting atherosclerotic calcification of the thoracic aorta. The lungs and pleural spaces are clear. No pneumothorax is seen. The skeletal structures are osteopenic. The bony thorax is grossly intact. IMPRESSION: 1. A right subclavian central venous infusion port has been exchanged. No pneumothorax is seen post procedure. 2. The lungs are clear. Electronically signed by: Satya Gonzalez M.D. 10/08/2017 8:48 AM Dictated Date/Time: 10/08/2017 8:47 AM
== END 2017-10-08 09:22 | disposition home or self-care (01) ==
LOC: C.ACU 04:59
PROVIDERS: ATTEND Surgery
DX: T82.514A Breakdown (mechanical) of infusion catheter, initial encounter (principal); Y82.8 Other medical devices associated with adverse incidents; Z45.2 Encounter for adjustment and management of vascular access device; J45.909 Unspecified asthma, uncomplicated; G25.0 Essential tremor; F30.9 Manic episode, unspecified; K21.9 Gastro-esophageal reflux disease without esophagitis; E78.00 Pure hypercholesterolemia, unspecified; D86.9 Sarcoidosis, unspecified; I10 Essential (primary) hypertension; E66.01 Morbid (severe) obesity due to excess calories; Z88.1 Allergy status to other antibiotic agents; Z88.4 Allergy status to anesthetic agent; Z88.8 Allergy status to other drugs, medicaments and biological substances

== ENCOUNTER → 2017-10-16 | Day surgery (SDC) | payer OTHER ==
[2017-09-26 16:36] VITALS: Ht 160 cm; Wt 119.1 kg
[~2017-10-16] VITALS: Ht 160 cm; Wt 119.1 kg
[~2017-10-16] MED LIST changes: +ATROPINE SULFATE 0.1 MG/ML 5ML SYR IV PRN; -CLINDAMYCIN IV 900 MG in DEXTROSE 5% 50ML IV SCH; +CLINDAMYCIN PHOS 150 MG/ML 2 ML VIAL IV SCH; +EpHEDrine SULFATE INJ 50 MG/ML AMP IV PRN; +FENTANYL CITRATE INJ 50 MCG/1 ML 2 ML VIAL IV PRN; +FENTANYL CITRATE INJ 50 MCG/1 ML 2 ML VIAL ONE; +HYDR-5688 PO; +HYDROCODONE/ACETAMIN 5/325MG TAB PO PRN; +LACTATED RINGER'S 1000ML 1,000 ML IV SCH; +LIDOCAINE HCL 1% 20 ML VIAL ONE; +MIDAZOLAM HCL 1 MG/ML 2ML VIAL ONE; +NURSING VERBAL MED ORDER ONE; +ONDANSETRON INJ 2 MG/ML 2 ML VIAL IV PRN; +PROPOFOL IV EMULSION 10 MG/ML 20 ML VIAL ONE; +SODIUM CHLORIDE 0.9% 1000ML 1,000 ML IV SCH
--- NOTE | 2017-10-16 09:03 | Discharge Instructions-SurgCtr ---
Discharge Instructions Date of Service Oct 16, 2017. Visit Reason for Visit: Right Posterior Calf Soft Tissue Mass Discharge Discharge Diagnosis / Problem: subcutaneous nodule Discharge Goals Goal(s): Decrease discomfort, Improve function, Improve disease control Activity Recommendations Activity Limitations: as noted below Lifting Limitations: no more than 25 pounds Exercise/Sports Limitations: until after follow-up appointment May Resume Sexual Activity: when tolerated Shower/Bathe: tomorrow Driving or Machine Use: resume 1 day after discharge Anesthesia . Post Anesthesia Instructions: If you have had General Anesthesia or IV Sedation: * Do not drive today. * Resume driving when surgeon permits. * Do not make important decisions or sign legal documents today. * Call surgeon for: 1. Temperature elevations greater than 101 degrees F. 2. Uncontrollable pain. 3. Excessive bleeding. 4. Persistent nausea and vomiting. 5. Medication intolerance (nausea, vomiting or rash). * For nausea and vomiting use only clear liquids such as: tea, soda, bouillon until nausea subsides, then gradually increase diet as tolerated. * If you have any concerns or questions, call your surgeon's office. If physician is unavailable and it is an emergency, call 911 or go to the nearest emergency room. . Instructions / Follow-Up Instructions / Follow-Up SPECIAL CARE INSTRUCTIONS: * Cover incisions and change daily for comfort/drainage. * May use ibuprofen for pain as tolerated. * Expect some swelling and bruising. Call your doctor if: * Temperature above 101 degrees * Pain not relieved by pain medicine ordered * There is increased drainage or redness from any incision * You have any unanswered questions or concerns [phone]. FOLLOW UP VISIT: If not already scheduled, please call the office for a follow-up visit. for scheduled visit- some suture removal OFFICE PHONE NUMBER: Dr. Dixon Office Diet Recommendations Home Diet: resume previous diet Pending Studies Studies pending at discharge: no Medical Emergencies . Who to Call and When: Medical Emergencies: If at any time you feel your situation is an emergency, please call 911 immediately. . Non-Emergent Contact Non-Emergency issues call your: Primary Care Provider, Surgeon . . "Provider Documentation" section prepared by Eliceo Dixon. .
--- NOTE | 2017-10-16 09:42 | [facility] Operative Report ---
Operative Report Operative Date Oct 16, 2017. Pre-Operative Diagnosis Right Posterior Calf Soft Tissue Mass Post-Operative Diagnosis same Procedure(s) Performed Right Posterior Calf Soft Tissue Biopsy Surgeon Dr. Karen Dixon Design Analyst Surgeon(s) 0 Estimated Blood Loss 5CC Findings subcu nodule Specimens A. Right Posterior Calf Soft Tissue Mass Anesthesia Type MAC Complication(s) none Disposition Recovery Room / PACU I attest to the content of the Intraoperative Record and any orders documented therein. Any exceptions are noted below.
[2017-10-16 09:46] VITALS: TEMP 36.7
--- NOTE | 2017-10-16 10:13 | Anesthesia Progress Nt - [facility] ---
Anesthesia Post Op Note Date & Time Oct 16, 2017 at 10:13 Vital Signs Pain Intensity: 0 Vital Signs Past 12 Hours Date Time Temp Pulse Resp B/P (MAP) Pulse Ox O2 Delivery O2 Flow Rate FiO2 10/16/17 09:46 36.7 94 16 145/84 (104) 95 Room Air 10/16/17 08:30 37.0 88 16 164/87 (112) 98 Room Air Notes Mental Status: alert / awake / arousable, participated in evaluation Pt Amnestic to Procedure: Yes Nausea / Vomiting: adequately controlled Pain: adequately controlled Airway Patency, RR, SpO2: stable & adequate BP & HR: stable & adequate Hydration State: stable & adequate Anesthetic Complications: no major complications apparent
[2017-10-16 10:19] VITALS: BP 122/53; PULSE 78; O2SAT 96
--- NOTE | 2017-10-16 11:59 | OPERATIVE REPORT ---
DATE OF OPERATION: 10/16/2017 NAME OF OPERATION: Excision of subcutaneous nodule, right calf. STAFF SURGEON: Eliceo Dixon MD ANESTHESIA: 1% plain lidocaine with sedation. DESCRIPTION OF PROCEDURE: The patient was brought in the operating room and placed on the operating table in the prone position. Her right calf was prepped and draped in usual fashion. So mid posterior leg, 1% plain lidocaine was used to anesthetize skin and subcutaneous tissue. Elliptical incision was made transversely, carrying dissection down excising the nodule from the subcutaneous tissue approximately 1.5-2 cm, sent for routine pathology. Deep tissue was reapproximated using 3-0 Vicryl suture and the skin reapproximated using 4-0 Prolene suture. The patient was transferred to recovery room in stable condition. I attest to the content of the Intraoperative Record and any orders documented therein. Any exception s are noted below.
== END | disposition home or self-care (01) ==
LOC: X.SURG 07:44
PROVIDERS: ATTEND Surgery
DX: L92.9 Granulomatous disorder of the skin and subcutaneous tissue, unspecified (principal); J45.909 Unspecified asthma, uncomplicated; I10 Essential (primary) hypertension; M19.90 Unspecified osteoarthritis, unspecified site; E66.9 Obesity, unspecified; F31.9 Bipolar disorder, unspecified; E66.01 Morbid (severe) obesity due to excess calories; Z88.1 Allergy status to other antibiotic agents; Z88.8 Allergy status to other drugs, medicaments and biological substances

== ENCOUNTER 2018-11-19 06:14 | Inpatient (IN) ==
--- NOTE | 2018-11-09 14:57 | PAT Medication Instructions ---
Medication Instructions Date of Service November 09, 2018 Home Medications citalopram 40 mg PO QAM losartan 25 mg PO QAM amitriptyline 50 mg PO HS trazodone 150 mg PO HS lamotrigine [Lamictal] 100 mg PO BID fluticasone propionate 50 mcg/actuation nasal spray,suspension 1 spray INTRANA GARTH DAILY PRN multivit with minerals 1 tab PO DAILY ranitidine 150 mg tablet 300 mg PO HS hydrochlorothiazide 25 mg PO QAM pantoprazole 40 mg PO BID potassium chloride [Klor-Con 10] 10 meq PO Q OTHER DAY verapamil 120 mg PO QAM DO NOT take the morning of surgery losartan 25 mg PO QAM multivit with minerals 1 tab PO DAILY hydrochlorothiazide 25 mg PO QAM potassium chloride [Klor-Con 10] 10 meq PO Q OTHER DAY Take morning of surgery With a small sip of water, OTHERWISE NOTHING TO EAT OR DRINK AFTER MIDNIGHT: citalopram 40 mg PO QAM lamotrigine [Lamictal] 100 mg PO BID fluticasone propionate 50 mcg/actuation nasal spray,suspension 1 spray INTRANASAL DAILY PRN (if needed) pantoprazole 40 mg PO BID verapamil 120 mg PO QAM Take evening before surgery amitriptyline 50 mg PO HS trazodone 150 mg PO HS lamotrigine [Lamictal] 100 mg PO BID fluticasone propionate 50 mcg/actuation nasal spray,suspension 1 spray INTRANASAL DAILY PRN (if needed) ranitidine 150 mg tablet 300 mg PO HS pantoprazole 40 mg PO BID Other Notes If you have any questions please call us at [phone] or [phone] or [phone] or [phone]
--- NOTE | 2018-11-11 14:04 | Anesthesiology Consultation ---
Date of Service November 11, 2018 Assessment & Plan (1) Encounter for pre-operative examination: Chart Review Chart Review: Patient seen in Pre Admission Testing Teaching & Discussion Pre-Anesthesia Teaching/Discussion Notes: Instructed NPO after midnight before surgery,except medications with 15 cc of water. Medication instructions provided according to the PAT guidelines. History Surgery Operation Date: 11/19/18 07:15 Proposed Procedures p Left Total Knee Arthroplasty - Nick Hagan, Height/Weight Height: 5 ft 3 in Weight: 119.2 kg Allergies Allergy/AdvReac Type Severity Reaction Status Date / Time Cipro Allergy Mild RASH Verified 10/16/17 08:30 ciprofloxacin Allergy Mild RASH Verified 11/08/18 15:13 Quinolones Allergy Mild RASH Verified 11/08/18 15:13 sumatriptan AdvReac Mild PALPITATIONS, Verified 11/08/18 15:13 HEART RACING theophylline AdvReac Mild PALPITATIONS, Verified 11/11/18 14:02 HEART RACING prednisone AdvReac Unknown PALPITATIONS, Verified 11/08/18 15:13 NAUSEA epinephrine AdvReac TACHYCARDIA Verified 11/11/18 14:02 Medications Home Medications Medication Instructions Recorded Confirmed Last Taken citalopram 40 mg PO QAM #0 11/17/15 11/08/18 04/17/18 07:00 losartan 25 mg PO QAM #0 tab 03/07/17 11/08/18 04/17/18 07:00 amitriptyline 50 mg PO HS #0 tab 07/31/17 11/08/18 04/16/18 trazodone 150 mg PO HS #0 tab 07/31/17 11/08/18 04/16/18 lamotrigine [Lamictal] 100 mg PO BID 03/25/18 11/08/18 04/17/18 07:00 fluticasone propionate 50 1 spray INTRANASAL DAILY PRN gm 10/09/18 11/08/18 Unknown mcg/actuation nasal spray,suspension multivit with 1 tab PO DAILY 10/11/18 11/08/18 Unknown xwofchqs-xgul-HF-lutein 8 mg iron-400 mcg-300 mcg tablet ranitidine 150 mg tablet 300 mg PO HS 10/11/18 11/08/18 Unknown hydrochlorothiazide 25 mg PO QAM 11/08/18 11/08/18 Unknown pantoprazole 40 mg PO BID 11/08/18 11/08/18 Unknown potassium chloride [Klor-Con 10] 10 meq PO Q OTHER DAY 11/08/18 11/08/18 Unknown verapamil 120 mg PO QAM 11/08/18 11/08/18 Unknown Past Medical History Medical History Hypokalemia chronic- on KCL 10mg QOD Anxiety Asthma stable Bipolar disorder Chronic back pain Depression GERD (gastroesophageal reflux disease) controlled Hypertension Morbid obesity Sarcoidosis no pulmonary issues; does have occasional LE nodules Ulcerative colitis s/p ileostomy and subsequent reverse; no recent flares Exercise / Class Metabolic Activity III < 4 Walking/Shop/Light housework Past Family History Family History Mother Family history of reaction to anesthesia PONV, SLOW TO WAKE Past Surgical History Surgical History History of arthroscopy of right shoulder 08/16/17: [place]MA#4 [place] [facility] [place] of biopsy RLE nodule History of cholecystectomy + appendectomy History of colonoscopy History of esophagogastroduodenoscopy (EGD) History of ileostomy History of lymph node biopsy dx sarcoidosis History of reversal of ileostomy History of total abdominal hysterectomy and bilateral salpingo-oophorectomy History of total knee replacement right History of vascular access device port right chest wall (2/2 poor venous access) Past Anesthesia History No Hx of Anesthesia Complications (except post-op nausea) Mother: PONV, "slow to wake" History of PONV History of PONV (post-op nausea) and Hx of Motion Sickness (occasional) Social History Smoking Status: Never smoker Do You Dip or Chew Tobacco: No Hx Alcohol Use: No Hx Substance Use: No substance use type: does not use Review of Systems Reflux controlled. Patient denies chest pain, shortness of breath, cough, wheezing, palpitations. Physical Exam Vital Signs VITALS BP 140/71 P 72 TEMP 98.5 SP02 96%RA RESP 20 PHYSICAL Full neck and c-spine range of motion. Full TMJ range of motion. TMD 3.5 finger breaths Mallampati Score 2 Dentition: upper front right broken, upper front left implant, several missing teeth Lungs: clear throughout to auscultation Cardiac: regular rate and rhythm, no murmurs noted Spine: normal Carotid arteries: negative bruit Extremities: no edema Testing Electrocardiogram Date: 03/25/18 NSR at 91bpm. Possible LAE. NS TWA. Stress Test Date: 10/22/14 Type: DSE Negative Dobutamine stress echo for ischemia at 77% MPHR. Cannot exclude ischemia at higher heart rates. Non-diagnositic stress EKG for ischemia secondary to failure to achieve 85% MPHR. However, no EKG changes at 77% MPHR. Hypertensive hemodynamic response to Dobutamine. Test terminated secondary to hypertension.
--- NOTE | 2018-11-11 14:42 | XRay Report ---
XR chest Pre-admission PA/Lat CLINICAL HISTORY: pat preoperative evaluation COMPARISON STUDY: 10/08/2017 FINDINGS: Central catheter in superior vena cava. Lungs are clear. Diaphragms are smooth. Moderate de generative change thoracic spine. IMPRESSION: No acute process. The above report was generated using voice recognition software. It may contain grammatical, syntax or spelling errors. Electronically signed by: Samy Edmond M.D. 11/11/2018 2:41 PM
[2018-11-11 14:57] LABS: Basophils # (auto) 0.04 K/uL (0-0.2); Basophils % (auto) 0.4 %; Eosinophils # (auto) 0.41 K/uL (0-0.5); Eosinophils % (auto) 3.8 %; Hematocrit (blood only) 38.2 % (37-47); Hemoglobin 13.1 g/dL (12.0-16.0); Immature Granulocytes # (auto) 0.04 K/uL (0.00-0.02); Immature Granulocytes % (auto) 0.4 %; Lymphocytes # (auto) 3.49 K/uL (1.2-3.4); Lymphocytes % (auto) 32.7 %; Mean Corpuscular Hemoglobin 29.3 pg (25-34); Mean Corpuscular Hgb Conc 34.3 g/dL (32-36); Mean Corpuscular Volume 85.5 fL (80-100); Mean Platelet Volume 9.9 fL (7.4-10.4); Monocytes % (auto) 6.6 %; Neutrophils % (auto) 56.1 %; Platelet Count 203 K/uL (130-400); RDW Coefficient of Variation 14.1 % (11.5-14.5); RDW Standard Deviation 43.6 fL (36.4-46.3); Red Blood Count 4.47 M/uL (4.2-5.4); White Blood Count 10.68 K/uL (4.8-10.8)
[2018-11-11 15:05] LABS: Partial Thromboplastin Time 28.3 Seconds (21.0-31.0); Prothrombin Time 10.3 Seconds (9.0-12.0)
[2018-11-11 16:51] LABS: BUN Creatinine Ratio 16.6 (10-20); Calcium 9.3 mg/dl (8.5-10.1); Creatinine Clr Calc Pharmacy 64.9 ml/min; Est GFR (African American) 62.4; Est GFR (Non-African American) 53.8; Potassium 3.7 mmol/L (3.5-5.1)
[~2018-11-19 06:14] MED LIST changes: +ACETAMINOPHEN 500 MG TAB PO SCH; -AMT50 PO; -ATROPINE SULFATE 0.1 MG/ML 5ML SYR IV PRN; +CEFAZOLIN 2000MG 2,000 MG/15 ML SYR IV SCH; -CHOL2000 PO; -CLINDAMYCIN PHOS 150 MG/ML 2 ML VIAL IV SCH; -CLX40 PO; -EpHEDrine SULFATE INJ 50 MG/ML AMP IV PRN; +FAMOTIDINE 20 MG TAB PO SCH; -FENTANYL CITRATE INJ 50 MCG/1 ML 2 ML VIAL IV PRN; -FENTANYL CITRATE INJ 50 MCG/1 ML 2 ML VIAL ONE; +GABAPENTIN 300 MG CAP PO SCH; -HYDR-5688 PO; -HYDR25TA4 PO; -HYDROCODONE/ACETAMIN 5/325MG TAB PO PRN; -LACTATED RINGER'S 1000ML 1,000 ML IV SCH; -LAMO100T16 PO; -LIDOCAINE HCL 1% 20 ML VIAL ONE; -LOSA1TAB PO; +LR 500ML BOLUS, THEN 15ML/HR IV SCH; +LR 60ML/HR IV SCH; -MIDAZOLAM HCL 1 MG/ML 2ML VIAL ONE; -MULT-506 PO; -NURSING VERBAL MED ORDER ONE; -ONDANSETRON INJ 2 MG/ML 2 ML VIAL IV PRN; -PANT40TA2 PO; -PROPOFOL IV EMULSION 10 MG/ML 20 ML VIAL ONE; +ROPIVACAINE 0.5% HCL/PF 150 MG, BUPIVACAINE 0.5% MPF 30 ML, EPINEPHrine 30MG/30ML (OR U... INFIL SCH; -SODIUM CHLORIDE 0.9% 1000ML 1,000 ML IV SCH; +TRANEXAMIC ACID 1,000 MG **IV Pre-op IV SCH; -TRAZ1TAB52 PO; -VERA120T15 PO
--- NOTE | 2018-11-19 06:21 | History & Physical Report ---
Date of Service November 19, 2018 Assessment & Plan (1) Osteoarthritis of left knee: We will proceed with a left total knee arthroplasty. Postoperatively she will be placed on aspirin for DVT prophylaxis. She will be kept overnight in the hospital for postop medical management. She plans to use [employer] upon discharge. Present on Admission?: Yes History of Present Illness Chief Complaint: Primary osteoarthritis of the left knee Primary Care Provider: MANJU Barragan Gay is a pleasant 67-year-old female who underwent a right total knee arthroplasty about 18 months ago. She did very well with that. Unfortunately she is been having a lot of pain in her left knee. X-rays and clinical examination have been diagnostic for primary osteoarthritis of the left knee. After failing conservative treatment, she elected to proceed with a left total knee arthroplasty. Allergies Allergy/AdvReac Type Severity Reaction Status Date / Time Cipro Allergy Mild RASH Verified 10/16/17 08:30 ciprofloxacin Allergy Mild RASH Verified 11/08/18 15:13 Quinolones Allergy Mild RASH Verified 11/08/18 15:13 sumatriptan AdvReac Mild PALPITATIONS, Verified 11/08/18 15:13 HEART RACING theophylline AdvReac Mild PALPITATIONS, Verified 11/11/18 14:02 HEART RACING prednisone AdvReac Unknown PALPITATIONS, Verified 11/08/18 15:13 NAUSEA epinephrine AdvReac TACHYCARDIA Verified 11/11/18 14:02 Home Medications Home Medications Medication Instructions Recorded Confirmed Type citalopram 40 mg PO QAM #0 11/17/15 11/08/18 History losartan 25 mg PO QAM #0 tab 03/07/17 11/08/18 History amitriptyline 50 mg PO HS #0 tab 07/31/17 11/08/18 History trazodone 150 mg PO HS #0 tab 07/31/17 11/08/18 History lamotrigine [Lamictal] 100 mg PO BID 03/25/18 11/08/18 History fluticasone propionate 50 1 spray INTRANASAL DAILY PRN gm 10/09/18 11/08/18 History mcg/actuation nasal spray,suspension multivit with 1 tab PO DAILY 10/11/18 11/08/18 History rdtlhwhz-fefj-LR-lutein 8 mg iron-400 mcg-300 mcg tablet ranitidine 150 mg tablet 300 mg PO HS 10/11/18 11/08/18 History hydrochlorothiazide 25 mg PO QAM 11/08/18 11/08/18 History pantoprazole 40 mg PO BID 11/08/18 11/08/18 History potassium chloride [Klor-Con 10] 10 meq PO Q OTHER DAY 11/08/18 11/08/18 History verapamil 120 mg PO QAM 11/08/18 11/08/18 History Past Med/Surg History Medical History Hypokalemia chronic- on KCL 10mg QOD Anxiety Asthma stable Bipolar disorder Chronic back pain Depression GERD (gastroesophageal reflux disease) controlled Hypertension Morbid obesity Sarcoidosis no pulmonary issues; does have occasional LE nodules Ulcerative colitis s/p ileostomy and subsequent reverse; no recent flares Surgical History History of arthroscopy of right shoulder 08/16/17: LMA#4 + PNB at [facility] [place] History of biopsy RLE nodule History of cholecystectomy + appendectomy History of colonoscopy History of esophagogastroduodenoscopy (EGD) History of ileostomy History of lymph node biopsy dx sarcoidosis History of reversal of ileostomy History of total abdominal hysterectomy and bilateral salpingo-oophorectomy History of total knee replacement right History of vascular access device port right chest wall (2/2 poor venous access) Family History Mother Family history of reaction to anesthesia PONV, SLOW TO WAKE Social History Preferred Language: Khmer Communication Ability: Effective Wildlife Biostation Research Ecologist Required: No Beliefs That Will Affect Care: None Current Living Situation: Spouse Other Information That Helps Us Care for You: No Feels Safe at Home: Yes Safety Concerns: Feels Safe At This Time Smoking Status: Never smoker Do You Dip or Chew Tobacco: No ; Second Hand Exposure: Yes (EX USED TO SMOKE) ; Hx Alcohol Use: No Hx Substance Use: No Review of Systems All systems reviewed & are unremarkable except as noted in HPI & below Physical Exam Constitutional: WD/WN, vitals as above Eyes: PERRL, conjunctivae normal, anicteric sclerae ENMT: external ear and nose normal, oropharynx normal Neck: trachea midline, no thyromegaly Respiratory: normal respiratory effort Cardiovascular: RRR, no murmur, no edema Gastrointestinal (Abdomen): normal bowel sounds, soft, nontender, no hepatosplenomegaly Musculoskeletal: On physical examination of the left knee there is a trace effusion. There is near full range of motion and no evidence of instability. There is significant tenderness palpation along the medial and lateral joint lines and over the distal femoral condyles. Psychiatric: A+Ox3, euthymic affect Results & Data Diagnostic Findings Radiographs of the left knee demonstrate advanced osteoarthritis with joint space narrowing osteophyte formation and [id number] articulation.
[2018-11-19] MEDS ORDERED: BUPIVACAINE 0.5 % 5 MG/1 ML PF 10ML VIAL ONE (06:26)
--- NOTE | 2018-11-19 06:26 | History & Physical Bridge Note ---
Date of Service November 19, 2018 History & Physical Bridge Note I have examined the patient, reviewed the History & Physical and in the interval since the performance of the History & Physical I have noted the following changes of clinical significance: no changes noted
[2018-11-19] MEDS ORDERED: BUPIVACAINE/EPINEPHRINE 0.25% 1:200,000 30 ML VIAL ONE (06:27)
[2018-11-19] MEDS ORDERED: TRANEXAMIC ACID 1,000 MG **IV Intra-op IV SCH (06:30)
[2018-11-19] MEDS ORDERED: MoRPHine SULFATE 10 MG/ML CARP/VIAL IV PRN (07:34)
[2018-11-19] MEDS ORDERED: fentaNYL citrate 100 MCG/2 ML VIAL IV PRN (07:34)
[2018-11-19] MEDS ORDERED: ATROPINE SULFATE 0.1 MG/ML 10ML SYR IV PRN (07:34)
[2018-11-19] MEDS ORDERED: ePHEDrine sulfate 50 MG/ML AMP IV PRN (07:34)
[2018-11-19] MEDS ORDERED: ONDANSETRON INJ 2 MG/ML 2 ML VIAL IV PRN ×2 (07:34→13:10)
[2018-11-19] MEDS ORDERED: fentaNYL citrate 100 MCG/2 ML VIAL ONE (08:03)
[2018-11-19] MEDS ORDERED: MIDAZOLAM HCL 1 MG/ML 2ML VIAL ONE (08:03)
[2018-11-19] MEDS ORDERED: ORTHO JOINT ANESTHETIC ONE (09:23)
[2018-11-19] MEDS ORDERED: PROPOFOL IV EMULSION 10 MG/ML 20 ML VIAL IV ONE (11:27)
--- NOTE | 2018-11-19 11:31 | Operative Report ---
Post Operative Report Pre & Post Diagnosis Operation Date: 11/19/18 09:05 Pre-Op Diagnosis: Osteoarthritis Knee, Knee Pain Post-Op Diagnosis: Osteoarthritis Knee, Knee Pain Procedure Operation Date: 11/19/18 09:05 Actual Procedures p Left Total Knee Arthroplasty(Left) - Nick Hagan DO Surgeon Nick Hagan DO Door Liner Nick Call PAC Estimated Blood Loss 100 Findings Consistent with Post-Op Diagnosis Specimens Left femoral and tibial bone Complications none Disposition Disposition: Recovery Room Indications Gay is a pleasant 67-year-old female who presented my office with chronic increasing left knee pain. X-rays and clinical examination were diagnostic for osteoarthritis of the left knee. After failing conservative treatment, she elected proceed with a left total knee arthroplasty. Description of Procedure Implants used: I used a [employer]omet Vanguard total knee arthroplasty system with a size 62.5 femur, 67 tibia, 31 patella, and a size 14 PS polyethylene bearing. All components were cemented in place with Palacos G cement. The patient arrived [facility] for the above procedure. There were seen in the preoperative holding area and the operative extremity was identified and signed. There were given a preoperative antibiotic, a spinal anesthetic and an adductor nerve block. There were taken back to the operating room and laid on the table in supine position. There were given basic sedation. The operative knee was then prepped and draped in sterile fashion. A timeout was done, and the patient and the operative extremity was properly identified. A midline incision was made directly over the patella. Dissection was taken down to the extensor mechanism. A subvastus arthrotomy was used. The medial retinaculum was released and the fat pad was mostly left intact. The knee was flexed and the ACL, PCL, and meniscus were removed. A drill was sent down the center of the femoral canal followed by an intramedullary vilma. Off that vilma a distal femoral cutting block was placed. 9 mm was resected off the distal femur at 5 of valgus. A posterior referencing AP sizing guide was then placed on the distal femur. The femur measured to be a size 62.5. 2 drill holes were placed in 3 of external rotation. A 4-in-1 cutting block was then impacted into place. Anterior posterior and chamfer cuts were then made. The posterior stabilizing box guide was then impacted into place and the box was resected for the posterior stabilizing component. The proximal tibia was then exposed. A drill was sent down the center of the tibial canal followed by an intramedullary vilma. Off that vilma a proximal tibial resection guide was placed. The proximal tibia was then resected. The tibia measured to be a size 67. The tibial plate was then placed in the appropriate rotation and the tibia was punched. The posterior aspect of the knee was then opened up and any additional meniscus fragments and osteophytes were removed. Trial components were then placed. I used a size 14 PS polyethylene insert. The knee was brought through a full range of motion and felt to be stable. The patella was then everted and 8 mm was resected off the posterior aspect of the patella. The patella measured to be a size 31. 3 peg holes were then drilled. A trial patella was placed. The knee was once again brought through a full range of motion and felt to be stable. Trial components were then removed. The surrounding soft tissues were injected with 100 cc of an orthopedic pain control cocktail. All components were then cemented into place with Palacos G cement. The final polyethylene insert was then snapped into place and the anterior bar was locked. Once cement was dry the tourniquet was deflated. Hemostasis was obtained. A dilute betadyne lavage was then done for 3 minutes. The joint was then irrigated with normal saline solution. The subvastus arthrotomy was then closed with #1 Vicryl suture. The skin was closed with 2-0 Vicryl, 3-0V lock suture, and mari. A soft compressive dressing was placed. The patient was then transferred to a hospital bed and taken to the postanesthesia care unit in stable condition. They tolerated the procedure well. I attest to the content of the Intraoperative Record and any orders documented therein. Any exceptions are noted below.
--- NOTE | 2018-11-19 12:18 | XRay Report ---
LEFT KNEE 2 VIEWS History: Left total knee arthroplasty. Degenerative arthritis. Postop. FINDINGS: The patient is status post a left total knee arthroplasty. The hardware is intact. No fract ure or dislocation. Skin mari are in place. IMPRESSION: Left total knee arthroplasty. No evidence for hardware complication. Electronically signed by: Bart Fine M.D. 11/19/2018 12:17 PM
--- NOTE | 2018-11-19 12:39 | Anesthesiology Progress Note ---
Date of Service November 19, 2018 Anesthesia Post Procedure Vital Signs Vital Signs: Temp Pulse Pulse Resp BP Pulse Ox 11/19/18 12:30 73 14 125/51 L 99 11/19/18 12:20 36.6 C 73 15 123/51 L 99 11/19/18 12:10 71 14 102/57 L 99 11/19/18 12:00 74 13 119/50 L 98 11/19/18 11:53 36.8 C 79 17 97/60 L 100 11/19/18 07:11 36.7 C 69 20 116/49 L 95 Notes Mental Status: alert / awake / arousable and participated in evaluation Patient Amnestic to Procedure: Yes Nausea / Vomiting: adequately controlled Pain: adequately controlled Airway Patency, RR, SpO2: stable & adequate BP & HR: stable & adequate Hydration State: stable & adequate
--- NOTE | 2018-11-19 12:40 | Anesthesiology Progress Note ---
Date of Service November 19, 2018 Anesthesia Post Procedure Vital Signs Vital Signs: Temp Pulse Pulse Resp BP Pulse Ox 11/19/18 12:30 73 14 125/51 L 99 11/19/18 12:20 36.6 C 73 15 123/51 L 99 11/19/18 12:10 71 14 102/57 L 99 11/19/18 12:00 74 13 119/50 L 98 11/19/18 11:53 36.8 C 79 17 97/60 L 100 11/19/18 07:11 36.7 C 69 20 116/49 L 95 Transfer of Care Handoff Completed per policy Notes Mental Status: alert / awake / arousable and participated in evaluation Patient Amnestic to Procedure: Yes Nausea / Vomiting: adequately controlled Pain: adequately controlled Airway Patency, RR, SpO2: stable & adequate BP & HR: stable & adequate Hydration State: stable & adequate Neuraxial Anesthesia: was administered and sensory block is resolving Anesthetic Complications: no major complications apparent and Pt Satisfied with anesthetic care
[2018-11-19] MEDS ORDERED: FLUTICASONE PROPIONATE NA SPR 16 GM BTL PRN (13:10)
[2018-11-19] MEDS ORDERED: METOCLOPRAMIDE HCL INJ 5 MG/ML 2 ML VIAL IV PRN (13:10)
[2018-11-19] MEDS ORDERED: BISACODYL 10 MG SUPP PR PRN (13:10)
[2018-11-19] MEDS ORDERED: MAGNESIUM HYDROXIDE SUSP 30 ML UDC PO PRN (13:10)
[2018-11-19] MEDS ORDERED: SODIUM CHLORIDE 0.9% 1000ML 1,000 ML IV SCH (13:10)
[2018-11-19] MEDS ORDERED: NALOXONE HCL 0.4 MG/1 ML VIAL/CARP IV PRN (13:10)
[2018-11-19] MEDS: KETOROLAC TROMETHAMINE 15 MG/ML VIAL IV SCH ×2 (13:49→20:41)
[2018-11-19] MEDS: ACETAMINOPHEN 500 MG TAB PO SCH ×2 (13:49→20:41)
[2018-11-19] MEDS: OXYCODONE HCL IR 5 MG TAB (IMMEDIATE RELEASE) PO PRN ×2 (16:37→17:27)
[2018-11-19] MEDS: CEFAZOLIN 2000MG 2,000 MG/15 ML SYR IV SCH (18:07)
[2018-11-19] MEDS ORDERED: HEPARIN 100 UNIT/ML 5ML FLUSH ONE (18:19)
[2018-11-19] MEDS: SENNA 8.6 MG TAB PO SCH (20:37)
[2018-11-19] MEDS: DOCUSATE SODIUM 100 MG CAP PO SCH (20:37)
[2018-11-19] MEDS: lamoTRIgine 100 MG TAB PO SCH (20:41)
[2018-11-19] MEDS: AMITRIPTYLINE HCL 50 MG TAB PO SCH (20:41)
[2018-11-19] MEDS: TRAZODONE HCL 50 MG TAB PO SCH (20:41)
[2018-11-19] MEDS: PANTOprazole 40 MG TAB PO SCH (20:41)
[2018-11-19] MEDS: HYDROmorphone INJ 0.5 MG/0.5 ML SYR IV PRN (20:42)
[2018-11-19] MEDS: HEPARIN 100 UNIT/ML 5ML FLUSH FLUSH PRN (20:42)
[2018-11-20] MEDS: OXYCODONE HCL IR 5 MG TAB (IMMEDIATE RELEASE) PO PRN ×3 (00:05→15:53)
[2018-11-20] MEDS: HYDROmorphone INJ 0.5 MG/0.5 ML SYR IV PRN (00:48)
[2018-11-20] MEDS: HEPARIN 100 UNIT/ML 5ML FLUSH FLUSH PRN ×5 (00:49→20:56)
[2018-11-20] MEDS: KETOROLAC TROMETHAMINE 15 MG/ML VIAL IV SCH ×4 (01:00→20:54)
[2018-11-20] MEDS: CEFAZOLIN 2000MG 2,000 MG/15 ML SYR IV SCH (01:01)
[2018-11-20] MEDS: ACETAMINOPHEN 500 MG TAB PO SCH ×3 (05:16→20:52)
[2018-11-20 06:37] LABS: Hematocrit (blood only) 28.7 % (37-47); Hemoglobin 9.5 g/dL (12.0-16.0); Mean Corpuscular Hemoglobin 28.4 pg (25-34); Mean Corpuscular Hgb Conc 33.1 g/dL (32-36); Mean Corpuscular Volume 85.9 fL (80-100); Platelet Count 199 K/uL (130-400); RDW Coefficient of Variation 14.2 % (11.5-14.5); RDW Standard Deviation 44.4 fL (36.4-46.3); Red Blood Count 3.34 M/uL (4.2-5.4); White Blood Count 18.86 K/uL (4.8-10.8)
--- NOTE | 2018-11-20 07:00 | Orthopedic Progress Note ---
Date of Service November 20, 2018 Assessment & Plan (1) Osteoarthritis of left knee: Overall she is doing very well. She is having some soreness in the knee which is to be expected but no other issues. The nerve block might still be wearing off. She will be seen by physical therapy today for ambulation and range of motion exercises. She is on aspirin for DVT prophylaxis. We will plan to discharge her to home tomorrow. Present on Admission?: Yes Subjective Gay was seen and examined at bedside this morning. Overall she is doing fairly well. She is having a lot of soreness in her knee. She has been up and ambulating but she says that her knee felt unstable and she still some numbness in her foot. Otherwise she has no complaints and is doing okay. Physical Exam Musculoskeletal: On physical examination of the left leg the dressing has been reinforced but the incision looks good. Her legs out in full extension. She is active dorsiflexion and plantarflexion of her left ankle. She has some numbness still in the dorsal aspect of her foot. Results & Data Vital Signs (Past 12 Hours) Vital Signs Temp Pulse Resp BP BP Pulse Ox 11/20/18 03:26 36.7 C 76 16 125/64 93 11/19/18 23:30 36.4 C L 80 18 147/79 H 93 11/19/18 20:27 36.8 C 75 18 132/67 94 Laboratory Results H & H 11/11/18 11/20/18 Range/Units 14:20 05:39 Hgb 13.1 9.5 L (12.0-16.0) g/dL Hct 38.2 28.7 L (37-47) % Coagulation 11/11/18 Range/Units 14:20 INR 1.0 (0.9-1.1) Diagnostic Findings Postoperative x-rays of the left knee show the prosthesis to be in anatomic alignment without any evidence of fracture, dislocation, or loosening. PG Care Time/CCT Total # of Minutes Spent Total Time Spent with Patient: Total time spent is greater than 50% in coordination of care (as documented) at patient's floor/unit and/or counseling patient:
[2018-11-20 07:13] LABS: BUN Creatinine Ratio 16.6 (10-20); Calcium 8.1 mg/dl (8.5-10.1); Creatinine Clr Calc Pharmacy 43.1 ml/min; Est GFR (African American) 38.2; Potassium 3.8 mmol/L (3.5-5.1)
[2018-11-20] MEDS: hydroCHLOROthiazide 25 MG TAB PO SCH (07:47)
[2018-11-20] MEDS: PANTOprazole 40 MG TAB PO SCH ×2 (07:47→20:52)
[2018-11-20] MEDS: LOSARTAN POTASSIUM 25 MG TAB PO SCH (07:47)
[2018-11-20] MEDS: MULTIVITAMIN TAB PO SCH (07:47)
[2018-11-20] MEDS: lamoTRIgine 100 MG TAB PO SCH ×2 (07:47→20:52)
[2018-11-20] MEDS: ASPIRIN 81 MG ECTAB PO SCH ×2 (07:47→20:52)
[2018-11-20] MEDS: DOCUSATE SODIUM 100 MG CAP PO SCH ×2 (07:48→20:50)
[2018-11-20] MEDS: VERAPAMIL HCL 120 MG TABCR PO SCH (07:48)
[2018-11-20] MEDS: CITALOPRAM 40 MG TAB PO SCH (07:48)
[2018-11-20] MEDS ORDERED: POTASSIUM CHLORIDE 10 MEQ TABCR PO SCH (08:00)
--- NOTE | 2018-11-20 09:28 | Anesthesiology Progress Note ---
Date of Service November 20 Anesthesia Post Procedure Vital Signs Vital Signs: Temp Pulse Pulse Resp BP BP Pulse Ox 11/20/18 07:36 36.6 C 81 18 132/70 96 11/20/18 03:26 36.7 C 76 16 125/64 93 11/19/18 23:30 36.4 C L 80 18 147/79 H 93 11/19/18 20:27 36.8 C 75 18 132/67 94 11/19/18 15:40 36.7 C 86 18 114/65 94 11/19/18 14:32 36.8 C 71 16 111/65 92 11/19/18 13:43 79 16 126/58 L 93 11/19/18 13:13 36.5 C 75 16 118/69 93 11/19/18 12:43 36.8 C 82 16 127/62 100 11/19/18 12:30 73 14 125/51 L 99 11/19/18 12:20 36.6 C 73 15 123/51 L 99 11/19/18 12:10 71 14 102/57 L 99 11/19/18 12:00 74 13 119/50 L 98 11/19/18 11:53 36.8 C 79 17 97/60 L 100 Pain Intensity Left Knee: Pain Intensity: 6 Notes Mental Status: alert / awake / arousable and participated in evaluation Patient Amnestic to Procedure: Yes Nausea / Vomiting: adequately controlled Pain: adequately controlled Airway Patency, RR, SpO2: stable & adequate Hydration State: stable & adequate Neuraxial Anesthesia: was administered and sensory block is resolving Anesthetic Complications: no major complications apparent and Pt Satisfied with anesthetic care
[2018-11-20] MEDS: SENNA 8.6 MG TAB PO SCH (20:50)
[2018-11-20] MEDS: TRAZODONE HCL 50 MG TAB PO SCH (20:52)
[2018-11-20] MEDS: AMITRIPTYLINE HCL 50 MG TAB PO SCH (20:52)
[2018-11-21] MEDS: HYDROmorphone INJ 0.5 MG/0.5 ML SYR IV PRN (00:50)
[2018-11-21] MEDS: HEPARIN 100 UNIT/ML 5ML FLUSH FLUSH PRN ×2 (00:51→08:13)
[2018-11-21] MEDS: KETOROLAC TROMETHAMINE 15 MG/ML VIAL IV SCH ×2 (00:51→08:08)
[2018-11-21] MEDS: OXYCODONE HCL IR 5 MG TAB (IMMEDIATE RELEASE) PO PRN (02:11)
[2018-11-21] MEDS: ACETAMINOPHEN 500 MG TAB PO SCH (05:25)
[2018-11-21] MEDS: ASPIRIN 81 MG ECTAB PO SCH (08:07)
[2018-11-21] MEDS: hydroCHLOROthiazide 25 MG TAB PO SCH (08:07)
[2018-11-21] MEDS: lamoTRIgine 100 MG TAB PO SCH (08:07)
[2018-11-21] MEDS: MULTIVITAMIN TAB PO SCH (08:07)
[2018-11-21] MEDS: PANTOprazole 40 MG TAB PO SCH (08:07)
[2018-11-21] MEDS: DOCUSATE SODIUM 100 MG CAP PO SCH (08:07)
[2018-11-21] MEDS: LOSARTAN POTASSIUM 25 MG TAB PO SCH (08:07)
[2018-11-21] MEDS: CITALOPRAM 40 MG TAB PO SCH (08:08)
[2018-11-21] MEDS: VERAPAMIL HCL 120 MG TABCR PO SCH (08:08)
--- NOTE | 2018-11-21 15:22 | Discharge Summary ---
Date of Service November 21, 2018 Admission HPI Per Admitting Provider Gay is a pleasant 67-year-old female who underwent a right total knee arthroplasty about 18 months ago. She did very well with that. Unfortunately she is been having a lot of pain in her left knee. X-rays and clinical examination have been diagnostic for primary osteoarthritis of the left knee. After failing conservative treatment, she elected to proceed with a left total knee arthroplasty. Principal Diagnosis Left total knee arthroplasty Discharge Data Allergies Allergy/AdvReac Type Severity Reaction Status Date / Time Cipro Allergy Mild RASH Verified 10/16/17 08:30 ciprofloxacin Allergy Mild RASH Verified 11/19/18 06:39 Quinolones Allergy Mild RASH Verified 11/19/18 06:39 sumatriptan AdvReac Mild PALPITATIONS, Verified 11/19/18 06:39 HEART RACING theophylline AdvReac Mild PALPITATIONS, Verified 11/19/18 06:39 HEART RACING prednisone AdvReac Unknown PALPITATIONS, Verified 11/19/18 06:39 NAUSEA epinephrine AdvReac TACHYCARDIA Verified 11/19/18 06:39 Consultations 11/19/18 13:10 Consult Case Management - Discharge Planning Routine Procedures Performed Operation Date: 11/19/18 09:05 Actual Procedures p Left Total Knee Arthroplasty(Left) - Nick Hagan DO Ordered Studies 11/19/18 05:00 US - OR guided needle placemen Routine Hospital Course (1) Osteoarthritis of left knee: On November 19, 2018 Gay arrived at [facility] and underwent a left total knee arthroplasty without complication. She had a spinal anesthetic and a left adductor nerve block. Postoperatively she was started on aspirin for DVT prophylaxis and discharged to general orthopedic floors. Her hospital course was uneventful. On postop day #1 her H&H was stable and her pain was relatively well controlled. She was able to participate well with physical therapy doing ambulation and range of motion exercises. On postop day #2 she continued to do well. Her dressing was changed. She was then discharged home. She will follow-up with orthopedics in 2 weeks. Total Time Total Time Spent Total Time Spent (In Minutes): 20 Discharge Plan Discharge Items Patient Disposition: Home - Home Health Services Reason For Visit: Osteoarthritis Knee, Knee Pain Discharge Diagnosis: Left total knee arthroplasty Activity: As commented below Non-emergency contact: Surgeon Call non-emergency contact if: your wound has increased redness and your wound has increased drainage Follow-up/Referrals: Pebbles Goldman CRNP [Primary Care Provider] - Diet: Regular Addtl Attending Provider Instructions: Activity and Therapy Recommendations: * If you are using [facility] then therapy will be provided at your home until they feel you have accomplished all of your goals. * If you are using [facility] then Physical Therapy will be provided until they feel you are ready to start Outpatient Physical Therapy. * If you are not using home therapy then Outpatient Physical Therapy should start about 3-5 days from your day of surgery. Therapy will last about 6-10 weeks * It is important not to put a pillow under your knee when you are relaxing or sleeping. It is just as important to make sure you are getting your knee perfectly straight as it is to regain your knee bend. * You were shown a series of exercises in the hospital. Do these exercises three times each day including the exercises you were shown in physical therapy. * Get up and walk several times each day. For the first four weeks, try not to stand or walk for more than one hour at a time. If you do stand or walk for more than one hour, you will not hurt anything, but your leg will likely swell. * As you feel comfortable, you may change from the walker or crutches to a cane and then to independent walking. Medications: * Narcotic You will likely be sent home from the hospital with a prescription for the narcotic pain medication that worked best throughout your stay. * Aspirin Most patients will be required to take Aspirin 81mg twice a day for 6 weeks after surgery. This is obtained [id number] and a prescription is not necessary. * Other medications may be prescribed for specific circumstances. If you have any questions, please call the office at . * Resume previous home medications unless otherwise instructed TEDs/Elastic Stockings: The white elastic stockings help limit swelling and prevent blood clots from forming in your legs.~ The more you wear them, the more they work. Wear them for six weeks. Dressing Care: If the incision is not draining then you may leave the mari open to air. If there is a little bit of drainage or if the mari are getting stuck on your clothing then cover the incision with a dry dressing. The mari will be removed at your 2 week follow-up appointment. Showering: You may shower 5 days from the day of surgery. Let the soapy shower water run over the mari and pat them dry. Do not scrub or soak the incision. Things To Watch For: * Drainage from the incision site that occurs more than one week after your surgery. * Increased redness at the incision site. * Fever above 102 degrees Fahrenheit. * Unusual chest pain or shortness of breath. * Call [facility] at with any of the above problems Follow-Up Visit: Follow-up with Dr. Hagan 2-3 weeks after your day of surgery. An appointment was probably scheduled when you signed-up for surgery in the office. If you have any questions call Office Instructions: More detailed instructions as well as Frequently Asked Questions were provided in a folder by our office when you signed-up for surgery. Please review these instructions when you get home. If you have any further questions or concerns, please feel free to call the office at [phone] Pending Studies at Discharge: No Stand-Alone Forms: My [facility], Opioid Pain Management Medications and DC Order Prescriptions: New aspirin [Ecotrin Low Strength] 81 mg Tablet,Delayed Release (Dr/Ec) 81 mg PO BID Qty: 84 RF: 0 oxycodone 5 mg Tablet 5 mg PO Q4H PRN (Reason: pain) Qty: 40 RF: 0 Continued citalopram 40 mg Tablet 40 mg PO QAM Qty: 0 RF: 0 losartan 25 mg Tablet 25 mg PO QAM Qty: 0 RF: 0 amitriptyline 50 mg Tablet 50 mg PO HS Qty: 0 RF: 0 trazodone 150 mg Tablet 150 mg PO HS Qty: 0 RF: 0 fluticasone propionate 50 mcg/actuation spray,suspension 1 spray intranasal DAILY PRN (Reason: Congestion) RF: 0 ranitidine HCl [Zantac] 150 mg tablet 300 mg PO HS RF: 0 Centrum Silver Women 8 mg iron-400 mcg-300 mcg tablet 1 tab PO DAILY RF: 0 lamotrigine [Lamictal] 100 mg Tablet 100 mg PO BID RF: 0 potassium chloride [Klor-Con 10] 10 mEq tablet extended release 10 meq PO Q OTHER DAY RF: 0 pantoprazole 40 mg tablet,delayed release (DR/EC) 40 mg PO BID RF: 0 hydrochlorothiazide 25 mg tablet 25 mg PO QAM RF: 0 verapamil 120 mg capsule,ext rel. pellets 24 hr 120 mg PO QAM RF: 0 Discharge Orders: Discharge Order (Routine); Ordered 11/21/18 Ordered By: Nick Moreno/Other Patient Handouts: DVT Prevent Admission Data Admit Date/Time: 11/19/18 11:54 Attending Provider: Nick Hagan Admit Provider: Nick Hagan Primary Care Provider: Pebbles Goldman Other Interventions: Discharge Summary Assessment (RN) Last Done: 11/21/18 11:11 DC Date/Time DO NOT enter until pt leaves facility: 11/21/18 11:50
== END 2018-11-21 11:50 | disposition home health service (06) | DRG 470 ==
LOC: ASU 06:14 → 3E 11:54

== ENCOUNTER 2018-11-23 16:26 | Observation (INO) ==
[2018-11-23] MEDS ORDERED: SODIUM CHLORIDE 0.9% 1000ML 500 ML IV ONE (16:38)
[2018-11-23 17:08] LABS: Hematocrit (blood only) 26.4 % (37-47); Hemoglobin 8.7 g/dL (12.0-16.0); Mean Corpuscular Hemoglobin 28.3 pg (25-34); Mean Platelet Volume 8.7 fL (7.4-10.4); Platelet Count 185 K/uL (130-400); RDW Standard Deviation 46.9 fL (36.4-46.3); Red Blood Count 3.07 M/uL (4.2-5.4)
[2018-11-23] MEDS ORDERED: DiphenhydrAMINE HCL 50 MG/ML VIAL IV STA (17:08)
[2018-11-23] MEDS ORDERED: PROMETHAZINE HCL 6.25 MG in SODIUM CHLORIDE 0.9% 50 ML IV STA (17:08)
[2018-11-23] MEDS ORDERED: PROMETHAZINE 6.25 MG/50.25 ML NSS IV ONE (17:11)
[2018-11-23 17:23] LABS: BUN Creatinine Ratio 17.9 (10-20); Calcium 8.7 mg/dl (8.5-10.1); Creatinine Clr Calc Pharmacy 58.6 ml/min; Est GFR (African American) 56.6; Est GFR (Non-African American) 48.9; Potassium 3.3 mmol/L (3.5-5.1)
[2018-11-23 17:31] LABS: INR 1.1 (0.9-1.1); Partial Thromboplastin Ratio 2.7; Prothrombin Time 10.9 Seconds (9.0-12.0)
[2018-11-23 18:02] LABS: Partial Thromboplastin Time 74.3 Seconds (21.0-31.0)
[2018-11-23 18:41] LABS: INR 1.1 (0.9-1.1); Partial Thromboplastin Ratio 1.1; Partial Thromboplastin Time 31.1 Seconds (21.0-31.0); Prothrombin Time 10.9 Seconds (9.0-12.0)
--- NOTE | 2018-11-23 18:45 | Emergency Department Note ---
Entered by Elma Sandoval acting as a scribe for Satya Muñoz MD History of Present Illness General Chief complaint: Wound Stated complaint: L KNEE BLEEDING AT SURGERY SITE, NAUSEA Time Seen by Provider: 11/23/18 16:34 Source: patient and old records reviewed History of Present Illness Provider complaint: wound bleeding Onset (ago): day(s) 3 Location: lower extremity and left Severity: similar to prior episodes Pain Consistency: + other (persistent) Maximum Pain Intensity: 6 Associated symptoms: + loss of appetite, + weakness and + other (+fatigued, +pallor, +left knee pain); no syncope The patient is a 67 year old female who presents to the Emergency Room with complaints of persistent left knee wound bleeding. The patient reports that she had a left knee replacement on the . She notes that she was experiencing bleeding from the surgical site prior to discharge and states that it has worsened since. The patient states that she went to orthopedics yesterday and just packed the wound up and sent her home. She notes that she has been increasingly weak and fatigued since she has been home. The patient reports that she has been paler than normal. She states that her pain is a 6/10. She states that she is too weak to walk around. She denies any syncope episodes. The patient states that she has had a recent loss of appetite. She notes that she took a dose of oxycodone this morning. She denies any fever. Per the ED notes reviewed, the patient was discharged on the after a knee replacement surgery on the . She was seen by ortho yesterday. Home Medications Home Medications Medication Instructions Recorded Confirmed Type citalopram 40 mg PO QAM #0 11/17/15 11/23/18 History losartan 25 mg PO QAM #0 tab 03/07/17 11/23/18 History amitriptyline 50 mg PO HS #0 tab 07/31/17 11/23/18 History trazodone 150 mg PO HS #0 tab 07/31/17 11/23/18 History lamotrigine [Lamictal] 100 mg PO BID 03/25/18 11/23/18 History fluticasone propionate 50 1 spray INTRANASAL DAILY PRN gm 10/09/18 11/23/18 History mcg/actuation nasal spray,suspension multivit with 1 tab PO DAILY 10/11/18 11/23/18 History psscrwjv-uqdg-CY-lutein 8 mg iron-400 mcg-300 mcg tablet ranitidine 150 mg tablet 300 mg PO HS 10/11/18 11/23/18 History hydrochlorothiazide 25 mg PO QAM 11/08/18 11/23/18 History pantoprazole 40 mg PO BID 11/08/18 11/23/18 History potassium chloride [Klor-Con 10] 10 meq PO Q OTHER DAY 11/08/18 11/23/18 History verapamil 120 mg PO QAM 11/08/18 11/23/18 History aspirin [Ecotrin Low Strength] 81 mg PO BID #84 tab 11/20/18 11/23/18 Rx oxycodone 5 mg PO Q4H PRN #40 tab 11/20/18 11/23/18 Rx Allergies Allergy/AdvReac Type Severity Reaction Status Date / Time Cipro Allergy Mild RASH Verified 10/16/17 08:30 ciprofloxacin Allergy Mild RASH Verified 11/23/18 17:29 Quinolones Allergy Mild RASH Verified 11/23/18 17:29 sumatriptan AdvReac Mild PALPITATIONS, Verified 11/23/18 17:29 HEART RACING theophylline AdvReac Mild PALPITATIONS, Verified 11/23/18 17:29 HEART RACING prednisone AdvReac Unknown PALPITATIONS, Verified 11/23/18 17:29 NAUSEA epinephrine AdvReac TACHYCARDIA Verified 11/23/18 17:29 Past Med/Surg History Medical History Hypokalemia chronic- on KCL 10mg QOD Anxiety Asthma stable Bipolar disorder Chronic back pain Depression GERD (gastroesophageal reflux disease) controlled Hypertension Morbid obesity Sarcoidosis no pulmonary issues; does have occasional LE nodules Ulcerative colitis s/p ileostomy and subsequent reverse; no recent flares Surgical History S/P total knee arthroplasty 11/19/18- L TKA done by Dr. Hagan History of arthroscopy of right shoulder 08/16/17: LMA#4 + [place] [facility] [place] of biopsy RLE nodule History of cholecystectomy + appendectomy History of colonoscopy History of esophagogastroduodenoscopy (EGD) History of ileostomy History of lymph node biopsy dx sarcoidosis History of reversal of ileostomy History of total abdominal hysterectomy and bilateral salpingo-oophorectomy History of total knee replacement right History of vascular access device port right chest wall (2/2 poor venous access) Family History Mother Family history of reaction to anesthesia PONV, SLOW TO WAKE Social History Preferred Language: Yemeni Communication Ability: Effective 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 and A total of 10 systems reviewed and were otherwise negative Physical Exam Vital Signs Vital Signs - 24 hr 11/23/18 16:29 Temperature 37.4 C Temperature Source Oral Sepsis Recent Fever Within 48 Hours No Sepsis Action Taken by Nursing No Action Required Pulse Rate 95 H Pulse Rhythm Regular Pulse Strength Normal Respiratory Rate 22 Respiratory Effort / Characteristics Non-Labored Spontaneous Respiratory Depth Normal Respiratory Pattern Regular Blood Pressure 132/59 L Blood Pressure Mean 83 Blood Pressure Position Sitting Pulse Oximetry 96 Oxygen Delivery Method Room Air GENERAL: Patient is in no acute distress. HEENT: No acute trauma, normocephalic atraumatic, mucous membranes moist, no nasal congestion, no scleral icterus. NECK: No stridor, no adenopathy, no meningismus, trachea is midline. LUNGS: Clear to auscultation bilaterally, no wheeze, no rhonchi, breath sounds equal. HEART: 2 over 6 systolic murmur. Regular rate and rhythm. ABDOMEN: Soft, nontender, bowel sounds positive, no hernias, no peritonitis. EXTREMITIES: [place] across anterior left knee. Bandages were soaked in blood, but not current active bleeding. No erythema around the wound. Some contusion to the soft tissue. NEUROLOGIC: Oriented x 3, no acute motor or sensory deficits, no focal weakness. SKIN: No rash, no jaundice, no diaphoresis. Pale. Course 1635: The patient was evaluated in room A11B, and a complete history and physical examination were performed. 1813: I reevaluated the patient and updated her on her result, there is minimal oozing from her knee. 1830: I discussed the patient's case with Dr. Nick Hagan- [facility] who did the surgery on the patient and will be further evaluating. 183: I updated the patient on her results and treatment plan. Administered Medications Amitriptyline HCl (Elavil) 50 mg PO HS MEENA Stop: 12/23/18 20:59 Last Admin: 11/23/18 20:38 Dose: 50 mg Documented by: [id number] Aspirin (Ecotrin Ectab) 81 mg PO BID MEENA Stop: 12/23/18 20:59 Last Admin: 11/23/18 20:38 Dose: 81 mg Documented by: [id number] Heparin Sodium (Porcine) (Heparin Sod 100 Unit/Ml Flush) 5 ml FLUSH PRN PRN PRN Reason: Flush Stop: 12/23/18 20:14 Last Admin: 11/23/18 20:12 Dose: 5 ml Documented by: [id number] Lamotrigine (Lamictal) 100 mg PO BID MEENA Stop: 12/23/18 20:59 Last Admin: 11/23/18 20:38 Dose: 100 mg Documented by: [id number] Ondansetron HCl (Zofran) 4 mg IV Q6H PRN PRN Reason: Nausea Stop: 12/23/18 19:54 Last Admin: 11/23/18 20:12 Dose: 4 mg Documented by: [id number] Pantoprazole Sodium (Protonix) 40 mg PO BID MEENA Stop: 12/23/18 20:59 Last Admin: 11/23/18 20:38 Dose: 40 mg Documented by: [id number] Potassium Chloride (Klor-Con M10) 10 meq PO Q2D@0900 MEENA Stop: 12/23/18 19:59 Last Admin: 11/23/18 20:38 Dose: 10 meq Documented by: [id number] Ranitidine HCl (Zantac) 300 mg PO HS MEENA Stop: 12/23/18 20:59 Last Admin: 11/23/18 20:38 Dose: 300 mg Documented by: [id number] Trazodone HCl (Desyrel) 150 mg PO HS MEENA Stop: 12/23/18 20:59 Last Admin: 11/23/18 20:38 Dose: 150 mg Documented by: [id number] Discontinued Medications Diphenhydramine HCl (Benadryl) 12.5 mg IV NOW STA Stop: 11/23/18 17:09 Last Admin: 11/23/18 17:23 Dose: 12.5 mg Documented by: [id number] Heparin Sodium (Porcine) (Heparin Sod 100 Unit/Ml Flush) Confirm Administered Dose 5 ml .ROUTE .STK-MED ONE Stop: 11/23/18 20:13 Last Admin: 11/23/18 20:32 Dose: Not Given Documented by: [id number] Sodium Chloride (Nss 1000ml) 500 mls @ 999 mls/hr IV .Q31M ONE Stop: 11/23/18 17:08 Last Infusion: 11/23/18 17:56 Dose: 0 mls/hr Documented by: [id number] Admin: 11/23/18 17:23 Dose: 999 mls/hr Documented by: [id number] Promethazine HCl 6.25 mg/ (Sodium Chloride) 50.25 mls @ 201 mls/hr IV NOW STA Stop: 11/23/18 17:22 Last Infusion: 11/23/18 17:41 Dose: 0 mls/hr Documented by: [id number] Admin: 11/23/18 17:23 Dose: 201 mls/hr Documented by: [id number] Promethazine HCl (Phenergan) Confirm Administered Dose 6.25 mg IV .STK-MED ONE Stop: 11/23/18 17:12 Last Admin: 11/23/18 17:23 Dose: Not Given Documented by: [id number] Medical Decision Making Differential Diagnosis Differential diagnoses include but are not limited to anemia, coagulopathy, low platelet count, dehydration, electrolyte imbalance, indigo bleeding, and arterial bleeding. Medical Records Attestation: I reviewed the patient's medical records. Home Medications Current Medication List: was personally reviewed by me Laboratory Data Attestation: I reviewed the patient's lab results. Result diagrams: 11/23/18 16:59 11/23/18 16:59 Lab Results 11/23/18 11/23/18 11/23/18 Range/Units 16:59 16:59 16:59 WBC 10.60 (4.8-10.8) K/uL RBC 3.07 L (4.2-5.4) M/uL Hgb 8.7 L (12.0-16.0) g/dL Hct 26.4 L (37-47) % MCV 86.0 (80-100) fL MCH 28.3 (25-34) pg MCHC 33.0 (32-36) g/dL RDW Std Deviation 46.9 H (36.4-46.3) fL RDW Coeff of Christina 15.0 H (11.5-14.5) % Plt Count 185 (130-400) K/uL MPV 8.7 (7.4-10.4) fL PT 10.9 (9.0-12.0) Seconds INR 1.1 (0.9-1.1) APTT 74.3 H* (21.0-31.0) Seconds PTT Ratio 2.7 Sodium 139 (136-145) mmol/L Potassium 3.3 L (3.5-5.1) mmol/L Chloride 103 (98-107) mmol/L Carbon Dioxide 30 (21-32) mmol/L Anion Gap 6.0 (3-11) BUN 21 H (7-18) mg/dl Creatinine 1.17 (0.6-1.2) mg/dl Est Cr Clr Drug Dosing 58.6 ml/min Est GFR ( Amer) 56.6 Est GFR (Non-Af Amer) 48.9 BUN/Creatinine Ratio 17.9 (10-20) Glucose 99 (70-99) mg/dl Calcium 8.7 (8.5-10.1) mg/dl Blood Type Antibody Screen Crossmatch 11/23/18 11/23/18 Range/Units 16:59 18:23 WBC (4.8-10.8) K/uL RBC (4.2-5.4) M/uL Hgb (12.0-16.0) g/dL Hct (37-47) % MCV (80-100) fL MCH (25-34) pg MCHC (32-36) g/dL RDW Std Deviation (36.4-46.3) fL RDW Coeff of Christina (11.5-14.5) % Plt Count (130-400) K/uL MPV (7.4-10.4) fL PT 10.9 (9.0-12.0) Seconds INR 1.1 (0.9-1.1) APTT 31.1 H (21.0-31.0) Seconds PTT Ratio 1.1 Sodium (136-145) mmol/L Potassium (3.5-5.1) mmol/L Chloride (98-107) mmol/L Carbon Dioxide (21-32) mmol/L Anion Gap (3-11) BUN (7-18) mg/dl Creatinine (0.6-1.2) mg/dl Est Cr Clr Drug Dosing ml/min Est GFR ( Amer) Est GFR (Non-Af Amer) BUN/Creatinine Ratio (10-20) Glucose (70-99) mg/dl Calcium (8.5-10.1) mg/dl Blood Type O Negative Antibody Screen NEGATIVE Crossmatch See Detail Blood Pressure Blood Pressure Findings: Low blood pressure Blood Pressure Disposition: further management by hospitalist [facility] Narrative There is no leukocytosis. The patient is anemic with a hemoglobin of 8.7. This is a drop for her since she was in the hospital. Platelet count was normal at 185. Initial INR was normal, the PTT was elevated however, I suspect this elevation may be secondary to heparin left over in her port. A repeat peripheral PTT has been ordered. There is no significant electrolyte abnormality or kidney failure. Blood type is O-. The patient presents with persistent bleeding from her left knee surgical site. She has dropped her hemoglobin further from when she was discharged. I did remove the dressing and there has been some oozing of blood from the site but no persistent bleeding. Apparently the bleeding is mostly when she is moving. I discussed the case with the on-call orthopedic surgeon. Hospitalization was felt warranted. Patient will likely require a packed red blood cell transfusion as her hemoglobin is quite low. I spoke to the patient and case management. Patient is currently resting comfortably. During the ED stay. The patient was given IV Phenergan and IV Benadryl for nausea. She received IV saline. Impression & Plan Anemia, Weakness, Bleeding from wound Discharge Plan Visit Data *Final* Discharge Date/Time: 11/23/18 18:55 Chief Complaint: Wound Stated Complaint: L KNEE BLEEDING AT SURGERY SITE, NAUSEA ED Provider: Satya Muñoz Discharge Problem: Anemia, Weakness, Bleeding from wound Patient Disposition: Being Evaluated by Surgeon Discharge Instructions Interventions: ED Discharge Assessment Last Done: 11/23/18 18:55 Discharge Problem: Anemia Qualifiers: Anemia type: unspecified type Qualified Code(s): D64.9 - Anemia, unspecified The scribe's documentation has been prepared under my direction and personally reviewed by me in its entirety. I confirm that the note above accurately reflects all work, treatment, procedures, and medical decision making performed by me.
[2018-11-23] MEDS ORDERED: FLUTICASONE PROPIONATE NA SPR 16 GM BTL NAE PRN (19:26)
[2018-11-23] MEDS ORDERED: SODIUM CHLORIDE 0.9% 250 ML IV PRN ×2 (19:26→19:53)
[2018-11-23] MEDS ORDERED: OXYCODONE HCL IR 5 MG TAB (IMMEDIATE RELEASE) PO PRN (19:26)
--- NOTE | 2018-11-23 19:52 | History & Physical Report ---
Date of Service November 23, 2018 Assessment & Plan (1) Anemia: I saw her at bedside and redressed her incision. I told the nurse to make sure she has plenty of ice on the wound. We will hold off on any physical therapy. I want her to keep her knee in extension is much as possible. I am going to transfuse her with 2 units of packed red blood cells tonight. We will get a repeat H&H tomorrow after the second unit. If everything looks good we will likely discharge her to home. Anemia type: unspecified type Qualified Code(s): D64.9 - Anemia, unspecified Present on Admission?: Yes History of Present Illness Chief Complaint: Postoperative anemia Primary Care Provider: MANJU Barragan is a pleasant 67-year-old female who underwent a left total knee arthroplasty 4 days ago. She was discharged to home. The following day there was some bleeding at her incision and she came to the office and saw my partner. He redressed the wound. Unfortunately she was still having some moderate bl eeding from the wound. More significantly, she states she was feeling weak and lightheaded. She went to the emergency room. The bloody dressing was changed and the knee looked okay. Her H&H was 8.7 and 26.4. Given her symptoms of weakness and lightheadedness, we elected to admit her to the hospital for postoperative anemia and a blood transfusion. Allergies Allergy/AdvReac Type Severity Reaction Status Date / Time Cipro Allergy Mild RASH Verified 10/16/17 08:30 ciprofloxacin Allergy Mild RASH Verified 11/23/18 17:29 Quinolones Allergy Mild RASH Verified 11/23/18 17:29 sumatriptan AdvReac Mild PALPITATIONS, Verified 11/23/18 17:29 HEART RACING theophylline AdvReac Mild PALPITATIONS, Verified 11/23/18 17:29 HEART RACING prednisone AdvReac Unknown PALPITATIONS, Verified 11/23/18 17:29 NAUSEA epinephrine AdvReac TACHYCARDIA Verified 11/23/18 17:29 Home Medications Home Medications Medication Instructions Recorded Confirmed Type citalopram 40 mg PO QAM #0 11/17/15 11/23/18 History losartan 25 mg PO QAM #0 tab 03/07/17 11/23/18 History amitriptyline 50 mg PO HS #0 tab 07/31/17 11/23/18 History trazodone 150 mg PO HS #0 tab 07/31/17 11/23/18 History lamotrigine [Lamictal] 100 mg PO BID 03/25/18 11/23/18 History fluticasone propionate 50 1 spray INTRANASAL DAILY PRN gm 10/09/18 11/23/18 History mcg/actuation nasal spray,suspension multivit with 1 tab PO DAILY 10/11/18 11/23/18 History nvdpaher-kufa-YX-lutein 8 mg iron-400 mcg-300 mcg tablet ranitidine 150 mg tablet 300 mg PO HS 10/11/18 11/23/18 History hydrochlorothiazide 25 mg PO QAM 11/08/18 11/23/18 History pantoprazole 40 mg PO BID 11/08/18 11/23/18 History potassium chloride [Klor-Con 10] 10 meq PO Q OTHER DAY 11/08/18 11/23/18 History verapamil 120 mg PO QAM 11/08/18 11/23/18 History aspirin [Ecotrin Low Strength] 81 mg PO BID #84 tab 11/20/18 11/23/18 Rx oxycodone 5 mg PO Q4H PRN #40 tab 11/20/18 11/23/18 Rx Past Med/Surg History Medical History Hypokalemia chronic- on KCL 10mg QOD Anxiety Asthma stable Bipolar disorder Chronic back pain Depression GERD (gastroesophageal reflux disease) controlled Hypertension Morbid obesity Sarcoidosis no pulmonary issues; does have occasional LE nodules Ulcerative colitis s/p ileostomy and subsequent reverse; no recent flares Surgical History S/P total knee arthroplasty 11/19/18- L TKA done by Dr. Hagan History of arthroscopy of right shoulder 08/16/17: [place]MA#4 [place] [facility] [facility] [place] of biopsy RLE nodule History of cholecystectomy + appendectomy History of colonoscopy History of esophagogastroduodenoscopy (EGD) History of ileostomy History of lymph node biopsy dx sarcoidosis History of reversal of ileostomy History of total abdominal hysterectomy and bilateral salpingo-oophorectomy History of total knee replacement right History of vascular access device port right chest wall (2/2 poor venous access) Family History Mother Family history of reaction to anesthesia PONV, SLOW TO WAKE Social History Preferred Language: Vincentian Communication Ability: Effective 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 There is no bleeding from the incision currently. There is no signs of a large hemarthrosis and no signs of infection. She is neurovascularly intact. There is minimal ecchymosis around the distal femur. Results & Data Vital Signs (Past 12 Hours) Vital Signs Temp Pulse Pulse Resp BP BP Pulse Ox 11/23/18 19:30 37.9 C H 89 16 92/51 L 97 11/23/18 16:29 37.4 C 95 H 22 132/59 L 96 Laboratory Results H & H 11/23/18 Range/Units 16:59 Hgb 8.7 L (12.0-16.0) g/dL Hct 26.4 L (37-47) % Coagulation 11/23/18 11/23/18 Range/Units 16:59 18:23 INR 1.1 1.1 (0.9-1.1) Code Status & VTE Plan VTE Prophylaxis Plan VTE Prophylaxis will be ordered: Yes
[2018-11-23] MEDS ORDERED: POTASSIUM CHLORIDE 10 MEQ TABCR PO SCH (20:00)
[2018-11-23] MEDS: ONDANSETRON INJ 2 MG/ML 2 ML VIAL IV PRN (20:12)
[2018-11-23] MEDS: HEPARIN 100 UNIT/ML 5ML FLUSH FLUSH PRN (20:12)
[2018-11-23] MEDS ORDERED: HEPARIN 100 UNIT/ML 5ML FLUSH ONE (20:12)
[2018-11-23] MEDS: lamoTRIgine 100 MG TAB PO SCH (20:38)
[2018-11-23] MEDS: ASPIRIN 81 MG ECTAB PO SCH (20:38)
[2018-11-23] MEDS: PANTOprazole 40 MG TAB PO SCH (20:38)
[2018-11-23] MEDS ORDERED: AMITRIPTYLINE HCL 50 MG TAB PO SCH (21:00)
[2018-11-23] MEDS ORDERED: TRAZODONE HCL 50 MG TAB PO SCH (21:00)
[2018-11-24] MEDS: ONDANSETRON INJ 2 MG/ML 2 ML VIAL IV PRN ×2 (02:21→07:17)
[2018-11-24] MEDS: HEPARIN 100 UNIT/ML 5ML FLUSH FLUSH PRN ×3 (02:54→10:22)
[2018-11-24 04:20] LABS: Hematocrit (blood only) 29.7 % (37-47); Hemoglobin 9.7 g/dL (12.0-16.0)
[2018-11-24] MEDS: PANTOprazole 40 MG TAB PO SCH (08:44)
[2018-11-24] MEDS: lamoTRIgine 100 MG TAB PO SCH (08:46)
[2018-11-24] MEDS: ASPIRIN 81 MG ECTAB PO SCH (08:46)
[2018-11-24] MEDS ORDERED: LOSARTAN POTASSIUM 25 MG TAB PO SCH (09:00)
[2018-11-24] MEDS ORDERED: CITALOPRAM 40 MG TAB PO SCH (09:00)
[2018-11-24] MEDS ORDERED: VERAPAMIL HCL 120 MG TABCR PO SCH (09:00)
[2018-11-24] MEDS ORDERED: MULTIVITAMIN TAB PO SCH (09:00)
[2018-11-24] MEDS ORDERED: hydroCHLOROthiazide 25 MG TAB PO SCH (09:00)
--- NOTE | 2018-11-24 09:24 | Orthopedic Progress Note ---
Date of Service November 24, 2018 Assessment & Plan (1) Anemia: Overall she is doing very well. She feels much better after the 2 units of blood. She can be up and ambulating some this morning. We will continue to watch the incision closely. She will be discharged home today. She has full discharge instructions on what to expect if she has any further bleeding from the incision. I want her to hold off on physical therapy for a week. I will see her in the office in about 2 weeks as previously scheduled. Present on Admission?: Yes Subjective Gay was seen and examined at bedside this morning. Overall she is doing very well. She feels better after having the blood transfusion. Her H&H is back to normal. She has not had any bleeding from her incision overnight. She has no complaints. Physical Exam Musculoskeletal: On physical examination of the left knee, the dressing is clean and dry and has not moved. Results & Data Vital Signs (Past 12 Hours) Vital Signs Temp Pulse Pulse Resp BP BP BP 11/24/18 07:19 36.8 C 76 20 151/62 H 11/24/18 02:45 36.9 C 83 20 126/72 11/24/18 02:00 36.7 C 77 17 114/70 11/24/18 01:00 37.0 C 80 18 123/73 11/24/18 00:30 36.8 C 96 H 18 106/64 11/24/18 00:15 36.9 C 81 20 116/65 11/23/18 23:29 37.1 C 79 18 111/56 L 11/23/18 23:15 37.1 C 84 20 117/70 11/23/18 21:29 37.1 C 82 18 111/64 Pulse Ox 11/24/18 07:19 97 11/24/18 02:45 94 11/24/18 02:00 95 11/24/18 01:00 97 11/24/18 00:30 96 11/24/18 00:15 97 11/23/18 23:29 97 11/23/18 23:15 94 11/23/18 21:29 90 PG Care Time/CCT Total # of Minutes Spent Total Time Spent with Patient: Total time spent is greater than 50% in coordination of care (as documented) at patient's floor/unit and/or counseling patient: (1) Anemia Anemia type: unspecified type Qualified Code(s): D64.9 - Anemia, unspecified
--- NOTE | 2018-11-24 09:25 | Discharge Summary ---
Date of Service November 24, 2018 Admission HPI Per Admitting Provider Gay is a pleasant 67-year-old female who underwent a left total knee arthroplasty 4 days ago. She was discharged to home. The following day there was some bleeding at her incision and she came to the office and saw my partner. He redressed the wound. Unfortunately she was still having some moderate bleeding from the wound. More significantly, she states she was feeling weak and lightheaded. She went to the emergency room. The bloody dressing was changed and the knee looked okay. Her H&H was 8.7 and 26.4. Given her symptoms of weakness and lightheadedness, we elected to admit her to the hospital for postoperative anemia and a blood transfusion. Principal Diagnosis Postoperative anemia Discharge Data Allergies Allergy/AdvReac Type Severity Reaction Status Date / Time Cipro Allergy Mild RASH Verified 10/16/17 08:30 ciprofloxacin Allergy Mild RASH Verified 11/23/18 17:29 Quinolones Allergy Mild RASH Verified 11/23/18 17:29 sumatriptan AdvReac Mild PALPITATIONS, Verified 11/23/18 17:29 HEART RACING theophylline AdvReac Mild PALPITATIONS, Verified 11/23/18 17:29 HEART RACING prednisone AdvReac Unknown PALPITATIONS, Verified 11/23/18 17:29 NAUSEA epinephrine AdvReac TACHYCARDIA Verified 11/23/18 17:29 Hospital Course (1) Anemia: On November 23, 2018 Gay was admitted to the hospital on observation status for some postoperative anemia and concerns with some bleeding from her left knee wound. She underwent a left total knee arthroplasty 4 days prior. She received 2 units of packed red blood cells. Her H&H returned to normal. Kelby carranza was feeling much better. The knee was rewrapped and had not had any drainage during her stay. She felt comfortable going home and was subsequently discharged home. Total Time Total Time Spent Total Time Spent (In Minutes): 20 Discharge Plan Discharge Items Patient Disposition: Home - Self-Care Reason For Visit: POST OP ANEMIA Discharge Diagnosis: Postop anemia Activity: As commented below Non-emergency contact: Surgeon Call non-emergency contact if: your wound has increased redness and your wound has increased drainage Follow-up/Referrals: Pebbles Goldman CRNP [Primary Care Provider] - Diet: Regular Addtl Attending Provider Instructions: Keep the dressing in place as long as possible. If it stays dry for 5 days, then you may remove it on and leave it open to air. If it becomes saturated before then, then please change the dressing accordingly. Keep plenty of ice on the incision. I want the knee iced as much as possible. You may be weightbearing as tolerated on the left knee. We will hold off on physical therapy for at least a week while we wait for some of the drainage to stop. Pending Studies at Discharge: No Stand-Alone Forms: My [facility] Medications and DC Order Prescriptions: Continued citalopram 40 mg Tablet 40 mg PO QAM Qty: 0 RF: 0 losartan 25 mg Tablet 25 mg PO QAM Qty: 0 RF: 0 amitriptyline 50 mg Tablet 50 mg PO HS Qty: 0 RF: 0 trazodone 150 mg Tablet 150 mg PO HS Qty: 0 RF: 0 fluticasone propionate 50 mcg/actuation spray,suspension 1 spray intranasal DAILY PRN (Reason: Congestion) RF: 0 ranitidine HCl [Zantac] 150 mg tablet 300 mg PO HS RF: 0 Centrum Silver Women 8 mg iron-400 mcg-300 mcg tablet 1 tab PO DAILY RF: 0 lamotrigine [Lamictal] 100 mg Tablet 100 mg PO BID RF: 0 potassium chloride [Klor-Con 10] 10 mEq tablet extended release 10 meq PO Q OTHER DAY RF: 0 pantoprazole 40 mg tablet,delayed release (DR/EC) 40 mg PO BID RF: 0 hydrochlorothiazide 25 mg tablet 25 mg PO QAM RF: 0 verapamil 120 mg capsule,ext rel. pellets 24 hr 120 mg PO QAM RF: 0 aspirin [Ecotrin Low Strength] 81 mg Tablet,Delayed Release (Dr/Ec) 81 mg PO BID Qty: 84 RF: 0 oxycodone 5 mg Tablet 5 mg PO Q4H PRN (Reason: pain) Qty: 40 RF: 0 Discharge Orders: Discharge Order (Routine); Ordered 11/24/18 Ordered By: Nick Hagan Admission Data Admit Date/Time: 11/23/18 18:33 Attending Provider: Nick Hagan Admit Provider: Nick Hagan Primary Care Provider: Pebbles Goldman
== END 2018-11-24 11:10 | disposition home or self-care (01) ==
LOC: ED 16:26 → 3W 16:26

== ENCOUNTER 2018-12-01 11:39 | Inpatient (IN) ==
[2018-12-01] MEDS ORDERED: PROMETHAZINE HCL 12.5 MG in SODIUM CHLORIDE 0.9% 50 ML IV STA (12:33)
[2018-12-01] MEDS ORDERED: SODIUM CHLORIDE 0.9% 1000ML 1,000 ML IV ONE (12:33)
[2018-12-01] MEDS ORDERED: VANCOMYCIN CONSULT ACTIVE PRN ×2 (12:41→19:09)
[2018-12-01] MEDS ORDERED: PIPERACILL/TAZOBAC CONSULT ACTIVE PRN (12:41)
[2018-12-01] MEDS ORDERED: VANCOMYCIN HCL 1,000 MG/270 ML BAG IV STA (12:41)
[2018-12-01] MEDS ORDERED: PIPERACILLIN/TAZOBACTAM 3.375 GM/115 ML BAG IV STA (12:41)
[2018-12-01] MEDS ORDERED: ACETAMINOPHEN 500 MG TAB PO STA (12:43)
[2018-12-01] MEDS ORDERED: fentaNYL citrate 100 MCG/2 ML VIAL IV ONE (12:43)
--- NOTE | 2018-12-01 13:13 | XRay Report ---
LEFT KNEE 4 VIEWS CLINICAL HISTORY: Left knee pain and swelling. Erythema. FINDINGS: AP, crosstable lateral, internally rotated, and externally rotated views of the left knee a re compared to study dated 11/19/2018. The skeletal structures are osteopenic. No fracture is seen. A left knee arthroplasty is in near-anatomic alignment. There has been undersurface remodeling of the p atella. No bony erosion or periostitis is identified. There is no periprosthetic lucency. A large viviane nt effusion is noted. Soft tissue edema is present around the knee. Midline skin clips are noted. IMPRESSION: 1. No acute bony abnormality is identified. 2. A left knee arthroplasty is in near anatomic alignment. 3. Soft tissue swelling and joint effusion. These are nonspecific findings given recent surgery and m ay represent expected postoperative change. Clinical correlation will be required. Electronically signed by: Satya Gonzalez M.D. 12/01/2018 1:12 PM
[2018-12-01] MEDS ORDERED: PROMETHAZINE HCL INJ 25 MG/ML 1 ML VIAL ONE (14:20)
[2018-12-01 14:24] LABS: Basophils # (auto) 0.03 K/uL (0-0.2); Basophils % (auto) 0.1 %; Eosinophils % (auto) 0.4 %; Hematocrit (blood only) 36.5 % (37-47); Hemoglobin 12.1 g/dL (12.0-16.0); Immature Granulocytes # (auto) 0.09 K/uL (0.00-0.02); Immature Granulocytes % (auto) 0.4 %; Lymphocytes # (auto) 2.01 K/uL (1.2-3.4); Lymphocytes % (auto) 8.8 %; Mean Corpuscular Hemoglobin 28.3 pg (25-34); Mean Corpuscular Hgb Conc 33.2 g/dL (32-36); Mean Corpuscular Volume 85.5 fL (80-100); Monocytes # (auto) 1.36 K/uL (0.11-0.59); Monocytes % (auto) 5.9 %; Neutrophils # (auto) 19.32 K/uL (1.4-6.5); Neutrophils % (auto) 84.4 %; Platelet Count 264 K/uL (130-400); RDW Coefficient of Variation 14.8 % (11.5-14.5); Red Blood Count 4.27 M/uL (4.2-5.4); White Blood Count 22.91 K/uL (4.8-10.8)
[2018-12-01 14:27] LABS: Alanine Aminotransferase 31 U/L (12-78); Albumin Level 3.2 gm/dl (3.4-5.0); Aspartate Aminotransferase 26 U/L (15-37); BUN Creatinine Ratio 15.2 (10-20); Blood Urea Nitrogen 19 mg/dl (7-18); Calcium 9.1 mg/dl (8.5-10.1); Carbon Dioxide 31 mmol/L (21-32); Chloride 97 mmol/L (98-107); Est GFR (African American) 51.8; Est GFR (Non-African American) 44.7; Glucose 123 mg/dl (70-99); Sodium 137 mmol/L (136-145)
[2018-12-01 14:30] LABS: Albumin Globulin Ratio 0.7 (0.9-2); Alkaline Phosphatase 124 U/L (45-117); Bilirubin,Total 1.8 mg/dl (0.2-1); Globulin 4.4 gm/dl (2.5-4.0); INR 1.1 (0.9-1.1); Partial Thromboplastin Ratio 1.4; Partial Thromboplastin Time 37.8 Seconds (21.0-31.0); Prothrombin Time 11.6 Seconds (9.0-12.0); Total Protein 7.6 gm/dl (6.4-8.2)
[2018-12-01] MEDS ORDERED: POTASSIUM CHLORIDE 20 MEQ TABCR PO STA (14:35)
[2018-12-01] MEDS ORDERED: SODIUM CHLORIDE 0.9% 1000ML 1,000 ML IV SCH ×2 (14:45→19:09)
--- NOTE | 2018-12-01 14:53 | Emergency Department Note ---
ED Visit Note This patient was seen in concert with Dr. Camarena and we discussed and agreed upon the history, physical, assessment and plan. . Resident Activity Tracking Resident Involvement: Resident Care Provided Care Provided: Adult [facility]
[2018-12-01] MEDS ORDERED: HYDROmorphone INJ 0.5 MG/0.5 ML SYR IV STA (15:14)
--- NOTE | 2018-12-01 15:23 | Ultrasound Report ---
ULTRASOUND LEFT LOWER EXTREMITY VENOUS CLINICAL HISTORY: Left leg pain and swelling. COMPARISON STUDY: Bilateral lower extremity venous ultrasound dated 08/02/2017. TECHNIQUE: Real-time, grayscale, and color Doppler sonography of the deep veins of the left lower ext remity was performed from the inguinal crease to the calf. Compression and augmentation were utilized . The patient could not tolerate compression of all vessels. FINDINGS: There is no sonographic evidence of deep venous thrombosis identified in the left lower ext remity. The common femoral, superficial femoral, and popliteal veins are patent and normally compress ible. The greater saphenous vein and the profunda femoris vein at the junction with the common femora l vein are clear. The visualized calf veins are patent. IMPRESSION: There is no sonographic evidence of deep venous thrombosis identified in the left lower e xtremity. Electronically signed by: Satya Gonzalez M.D. 12/01/2018 3:21 PM
--- NOTE | 2018-12-01 15:44 | Emergency Department Note ---
Entered by Alexia Dunbar acting as a scribe for Mona Camarena MD History of Present Illness General Chief complaint: Infection Stated complaint: REDNESS AROUND INCISION SITE, HEAT, NAUSEA Time Seen by Provider: 12/01/18 12:10 Source: patient History of Present Illness Onset (ago): day(s) (15) Location: knee (left) Radiation: proximal (left lower extremity) and distal (left lower extremity) Pain Consistency: + other (persistent) Maximum Pain Intensity: 8 Quality: + other (wound complications) Relieved By: not by medication (baby aspirin) Associated symptoms: + other (objective fever, pain diffusely in leg, inability to sleep secondary to the pain, redness and swelling in leg, drainage from incision site, warmth around incision) The patient is a 67 year old female that is presenting to the Emergency Room with complaints of a persistent wound complication following a knee replacement 12 days ago. The patient reports that the entire leg became painful last night and that she cannot sleep secondary to the pain. She states that the leg is swollen, red, and warm to the touch. She notes that she has some leakage from the incision. She reports a fever peaking at 101.4F 4 days ago. She notes that she is taking baby aspirin but denies any other medication for the pain. She denies taking any blood thinners. The patient reports that she was admitted at [facility] for 4 days following her surgery for bleeding from her incision site. She notes that she was transfused 2 units of blood during her hospitalization. Home Medications Home Medications Medication Instructions Recorded Confirmed Type citalopram 40 mg PO QAM #0 11/17/15 12/01/18 History losartan 25 mg PO QAM #0 tab 03/07/17 12/01/18 History amitriptyline 50 mg PO HS #0 tab 07/31/17 12/01/18 History trazodone 150 mg PO HS #0 tab 07/31/17 12/01/18 History lamotrigine [Lamictal] 100 mg PO BID 03/25/18 12/01/18 History fluticasone propionate 50 1 spray INTRANASAL DAILY PRN gm 10/09/18 12/01/18 History mcg/actuation nasal spray,suspension multivit with 1 tab PO DAILY 10/11/18 12/01/18 History qithmrgs-aydf-IB-lutein 8 mg iron-400 mcg-300 mcg tablet ranitidine 150 mg tablet 300 mg PO HS 10/11/18 12/01/18 History hydrochlorothiazide 25 mg PO QAM 11/08/18 12/01/18 History pantoprazole 40 mg PO BID 11/08/18 12/01/18 History potassium chloride [Klor-Con 10] 10 meq PO Q OTHER DAY 11/08/18 12/01/18 History verapamil 120 mg PO QAM 11/08/18 12/01/18 History aspirin [Ecotrin Low Strength] 81 mg PO BID #84 tab 11/20/18 12/01/18 Rx oxycodone 5 mg PO Q4H PRN #40 tab 11/20/18 12/01/18 Rx Allergies Allergy/AdvReac Type Severity Reaction Status Date / Time Cipro Allergy Mild RASH Verified 10/16/17 08:30 ciprofloxacin Allergy Mild RASH Verified 12/01/18 12:37 Quinolones Allergy Mild RASH Verified 12/01/18 12:37 sumatriptan AdvReac Mild PALPITATIONS, Verified 12/01/18 12:37 HEART RACING theophylline AdvReac Mild PALPITATIONS, Verified 12/01/18 12:37 HEART RACING prednisone AdvReac Unknown PALPITATIONS, Verified 12/01/18 12:37 NAUSEA epinephrine AdvReac TACHYCARDIA Verified 12/01/18 12:37 Past Med/Surg History Medical History Hypokalemia chronic- on KCL 10mg QOD Anxiety Asthma stable Bipolar disorder Chronic back pain Depression GERD (gastroesophageal reflux disease) controlled Hypertension Morbid obesity Sarcoidosis no pulmonary issues; does have occasional LE nodules Ulcerative colitis s/p ileostomy and subsequent reverse; no recent flares Surgical History History of arthroscopy of right shoulder 08/16/17[place]4 [place] [facility] [place] biopsy RLE nodule History of cholecystectomy + appendectomy History of colonoscopy History of esophagogastroduodenoscopy (EGD) History of ileostomy History of lymph node biopsy dx sarcoidosis History of reversal of ileostomy History of total abdominal hysterectomy and bilateral salpingo-oophorectomy History of total knee replacement right History of vascular access device port right chest wall (2/2 poor venous access) S/P total knee arthroplasty 11/19/18- L TKA done by Dr. Hagan Family History Mother Family history of reaction to anesthesia PONV, SLOW TO [place]KE Social History Preferred Language: Eritrean Communication Ability: Effective Horseradish Maker Required: No Beliefs That Will Affect Care: None marital status: Current Living Situation: Spouse Other Information That Helps Us Care for You: No Feels Safe at Home: Yes Safety Concerns: Feels Safe At This Time Smoking Status: Never smoker Second Hand Exposure: Yes (EX USED TO SMOKE) ; Hx Alcohol Use: No Hx Substance Use: No Review of Systems See HPI for pertinent positives & negatives. and A total of 10 systems reviewed and were otherwise negative Physical Exam Vital Signs Vital Signs - 24 hr 12/01/18 11:47 12/01/18 14:12 12/01/18 14:14 Temperature 36.9 C Temperature Source Oral Sepsis Recent Fever Within 48 Hours No Sepsis New/Unexplained Change in Mental Status No Sepsis Action Taken by Nursing No Action Required Pulse Rate 109 H 96 H Pulse Rate [Left] 97 H Respiratory Rate 20 16 16 Respiratory Effort / Characteristics Non-Labored Non-Labored Respiratory Depth Normal Normal Blood Pressure 100/64 Blood Pressure [Left Arm] 145/71 H Blood Pressure Mean 76 Blood Pressure Mean [Left Arm] 95 Pulse Oximetry 98 96 94 Oxygen Delivery Method Room Air Vital signs reviewed. General: Chronically ill-appearing obese female, in no significant distress. HEENT: No scleral icterus, PERRLA, neck supple. Atraumatic. Cardiovascular: Regular rate and rhythm, no extra sounds. Pulmonary: Clear to auscultation bilaterally, normal work of breathing. Abdomen: Soft, nontender, nondistended, positive bowel sounds. Musculoskeletal: Atraumatic, no peripheral edema. Anterior left knee incision with gi intact, patchy erythema and warm to the touch, minimal serosan guinous drainage from the joint line. Neurologic: Patient awake alert and oriented x 3 Skin: Warm, dry, no rash Course 1215: The patient was seen and evaluated by the Resident Physician at this time. History and physical were discussed with me. 1230:The patient was evaluated in room B10. A complete history and physical examination was performed. 1241: I discussed the patients case with Dr. Ruff, Orthopedic Surgeon, who recommended giving the patient antibiotics at this time. He states that he will consult with Dr. Hagan to develop a plan for treatment. 1445: I updated Dr. Ruff about the patients lab results. He states that the infection is likely unrelated to the knee. Dr. Hagan recommends the patient be discharged and follow up with his office later this week. 1447: The patient's case with discussed with JUAN Roberson, who will evaluate the patient for further management and care. He states that the patient should be brought into the orthopedics hospitalist service. Consultations Consultation #1: I discussed the patients case with Dr. Ruff, Orthopedic Surgeon, who recommended giving the patient antibiotics at this time. He states that he will consult with Dr. Hagan to develop a plan for treatment. Time: 12:41 Consultation #2: The patient's case with discussed with JUAN Roberson, who will evaluate the patient for further management and care. He states that the patient should be brought into the orthopedics hospitalist service. Time: 14:47 Administered Medications Amitriptyline HCl (Elavil) 50 mg PO HS MEENA Stop: 12/31/18 20:59 Last Admin: 12/04/18 21:09 Dose: 50 mg Documented by: [id number] Admin: 12/03/18 21:13 Dose: 50 mg Documented by: [id number] Admin: 12/02/18 20:28 Dose: 50 mg Documented by: [id number] Admin: 12/01/18 21:05 Dose: 50 mg Documented by: [id number] Aspirin (Ecotrin Ectab) 81 mg PO BID MEENA Stop: 12/31/18 20:59 Last Admin: 12/05/18 07:55 Dose: Not Given Documented by: [id number] Admin: 12/04/18 21:10 Dose: 81 mg Documented by: [id number] Admin: 12/04/18 08:36 Dose: 81 mg Documented by: [id number] Admin: 12/03/18 21:13 Dose: 81 mg Documented by: [id number] Admin: 12/03/18 08:28 Dose: 81 mg Documented by: [id number] Admin: 12/02/18 20:27 Dose: 81 mg Documented by: [id number] Admin: 12/02/18 07:47 Dose: 81 mg Documented by: [id number] Admin: 12/01/18 21:05 Dose: 81 mg Documented by: [id number] Citalopram Hydrobromide (Celexa) 40 mg PO QAM MEENA Stop: 01/01/19 08:59 Last Admin: 12/05/18 07:55 Dose: Not Given Documented by: [id number] Admin: 12/04/18 08:36 Dose: 40 mg Documented by: [id number] Admin: 12/03/18 08:29 Dose: 40 mg Documented by: [id number] Admin: 12/02/18 07:47 Dose: 40 mg Documented by: [id number] Docusate Sodium (Colace) 100 mg PO BID MEENA Stop: 01/01/19 20:59 Last Admin: 12/05/18 07:55 Dose: Not Given Documented by: [id number] Admin: 12/04/18 21:09 Dose: Not Given Documented by: [id number] Admin: 12/04/18 08:36 Dose: Not Given Documented by: [id number] Admin: 12/03/18 21:11 Dose: Not Given Documented by: [id number] Admin: 12/03/18 08:28 Dose: Not Given Documented by: [id number] Admin: 12/02/18 20:28 Dose: Not Given Documented by: [id number] Famotidine (Pepcid) 20 mg PO DAILY [facility] Stop: 01/03/19 08:59 Last Admin: 12/05/18 07:56 Dose: Not Given Documented by: [id number] Admin: 12/04/18 08:36 Dose: 20 mg Documented by: [id number] Heparin Sodium (Porcine) (Heparin Sod 100 Unit/Ml Flush) 5 ml FLUSH PRN PRN PRN Reason: Flush Stop: 01/01/19 01:44 Last Admin: 12/05/18 09:54 Dose: 5 ml Documented by: [id number] Admin: 12/05/18 04:08 Dose: 5 ml Documented by: [id number] Admin: 12/05/18 01:17 Dose: 5 ml Documented by: [id number] Admin: 12/04/18 17:42 Dose: 5 ml Documented by: [id number] Admin: 12/04/18 10:46 Dose: 5 ml Documented by: [id number] Admin: 12/04/18 01:36 Dose: 5 ml Documented by: [id number] Admin: 12/03/18 17:19 Dose: 5 ml Documented by: [id number] Hydralazine HCl (Apresoline) 10 mg PO TID PRN PRN Reason: high blood pressure Stop: 12/31/18 20:59 Last Admin: 12/02/18 07:47 Dose: 10 mg Documented by: [id number] Hydromorphone HCl (Dilaudid) 0.5 mg IV Q2H PRN PRN Reason: Pain Stop: 12/17/18 07:12 Last Admin: 12/03/18 21:31 Dose: 0.5 mg Documented by: [id number] Admin: 12/03/18 15:34 Dose: 0.5 mg Documented by: [id number] Admin: 12/03/18 08:25 Dose: 0.5 mg Documented by: [id number] Ceftriaxone Sodium 2,000 mg/ (Dextrose) 70 mls @ 100 mls/hr IV DAILY MEENA; Protocol Stop: 01/16/19 08:59 Last Infusion: 12/05/18 09:57 Dose: 0 mls/hr Documented by: [id number] Admin: 12/05/18 09:18 Dose: 100 mls/hr Documented by: [id number] Lamotrigine (Lamictal) 100 mg PO BID MEENA Stop: 12/31/18 20:59 Last Admin: 12/05/18 07:54 Dose: 100 mg Documented by: [id number] Admin: 12/04/18 21:11 Dose: 100 mg Documented by: [id number] Admin: 12/04/18 08:36 Dose: 100 mg Documented by: [id number] Admin: 12/03/18 21:13 Dose: 100 mg Documented by: [id number] Admin: 12/03/18 08:29 Dose: 100 mg Documented by: [id number] Admin: 12/02/18 20:29 Dose: 100 mg Documented by: [id number] Admin: 12/02/18 07:48 Dose: 100 mg Documented by: [id number] Admin: 12/01/18 21:04 Dose: 100 mg Documented by: [id number] Losartan Potassium (Cozaar) 25 mg PO QAM MEENA Stop: 01/01/19 08:59 Last Admin: 12/05/18 07:55 Dose: Not Given Documented by: [id number] Admin: 12/04/18 08:35 Dose: 25 mg Documented by: [id number] Admin: 12/03/18 08:27 Dose: 25 mg Documented by: [id number] Admin: 12/02/18 07:46 Dose: 25 mg Documented by: [id number] Metoclopramide HCl (Reglan) 10 mg IV Q6H PRN PRN Reason: Nausea/Vomiting Stop: 12/31/18 19:08 Last Admin: 12/05/18 04:08 Dose: 10 mg Documented by: [id number] Admin: 12/04/18 21:00 Dose: 10 mg Documented by: [id number] Admin: 12/04/18 14:03 Dose: 10 mg Documented by: [id number] Admin: 12/04/18 06:40 Dose: 10 mg Documented by: [id number] Admin: 12/02/18 07:56 Dose: 10 mg Documented by: [id number] Admin: 12/01/18 22:38 Dose: 10 mg Documented by: [id number] Miscellaneous (Check Scopolamine Patch Placement) 1 ea N/A QS [facility] Stop: 01/01/19 15:59 Last Admin: 12/05/18 07:50 Dose: Not Given Documented by: [id number] Admin: 12/05/18 00:03 Dose: 1 ea Documented by: [id number] Admin: 12/04/18 15:22 Dose: 1 ea Documented by: [id number] Admin: 12/04/18 08:33 Dose: 1 ea Documented by: [id number] Admin: 12/03/18 23:43 Dose: 1 ea Documented by: [id number] Admin: 12/03/18 15:26 Dose: 1 ea Documented by: [id number] Admin: 12/03/18 08:42 Dose: 1 ea Documented by: [id number] Admin: 12/03/18 08:26 Dose: 1 ea Documented by: [id number] Admin: 12/03/18 00:00 Dose: 1 ea Documented by: [id number] Admin: 12/02/18 18:40 Dose: 1 ea Documented by: [id number] Multivitamins (Multivitamin Tab) 1 tab PO QAM [facility] Stop: 01/02/19 08:59 Last Admin: 12/05/18 07:56 Dose: Not Given Documented by: [id number] Admin: 12/04/18 08:36 Dose: 1 tab Documented by: [id number] Admin: 12/03/18 08:29 Dose: 1 tab Documented by: [id number] Multivitamins/Minerals (Multivitamin W/ Minerals Tab) 1 tab PO QAM MEENA Stop: 01/01/19 08:59 Last Admin: 12/05/18 07:56 Dose: Not Given Documented by: [id number] Admin: 12/04/18 08:36 Dose: 1 tab Documented by: [id number] Admin: 12/03/18 08:29 Dose: 1 tab Documented by: [id number] Admin: 12/02/18 07:46 Dose: 1 tab Documented by: [id number] Ondansetron HCl (Zofran) 4 mg IV Q6H PRN PRN Reason: Nausea/Vomiting Stop: 12/31/18 19:08 Last Admin: 12/05/18 07:54 Dose: 4 mg Documented by: [id number] Admin: 12/05/18 00:02 Dose: 4 mg Documented by: [id number] Admin: 12/03/18 21:32 Dose: 4 mg Documented by: [id number] Admin: 12/03/18 12:32 Dose: 4 mg Documented by: [id number] Admin: 12/02/18 22:47 Dose: 4 mg Documented by: [id number] Admin: 12/02/18 05:05 Dose: 4 mg Documented by: [id number] Oxycodone/Acetaminophen (Percocet 5mg/325mg) 1 - 2 tab PO Q4H PRN PRN Reason: Pain Stop: 12/15/18 19:08 Last Admin: 12/05/18 04:08 Dose: 2 tab Documented by: [id number] Admin: 12/04/18 09:41 Dose: 2 tab Documented by: [id number] Admin: 12/03/18 23:43 Dose: 2 tab Documented by: [id number] Admin: 12/03/18 06:25 Dose: 2 tab Documented by: [id number] Admin: 12/03/18 01:23 Dose: 2 tab Documented by: [id number] Admin: 12/02/18 20:10 Dose: 2 tab Documented by: [id number] Admin: 12/02/18 07:44 Dose: 2 tab Documented by: [id number] Admin: 12/01/18 21:59 Dose: 2 tab Documented by: [id number] Ranitidine HCl (Zantac) 300 mg PO HS MEENA Stop: 12/31/18 20:59 Last Admin: 12/04/18 21:10 Dose: 300 mg Documented by: [id number] Admin: 12/03/18 21:12 Dose: 300 mg Documented by: [id number] Admin: 12/02/18 20:28 Dose: 300 mg Documented by: [id number] Admin: 12/01/18 21:04 Dose: 300 mg Documented by: [id number] Sennosides (Senokot) 17.2 mg PO [facility] Stop: 01/01/19 20:59 Last Admin: 12/04/18 21:10 Dose: Not Given Documented by: [id number] Admin: 12/03/18 21:11 Dose: Not Given Documented by: [id number] Admin: 12/02/18 20:28 Dose: Not Given Documented by: [id number] Trazodone HCl (Desyrel) 150 mg PO [facility] Stop: 12/31/18 20:59 Last Admin: 12/04/18 21:10 Dose: 150 mg Documented by: [id number] Admin: 12/03/18 21:12 Dose: 150 mg Documented by: [id number] Admin: 12/02/18 20:27 Dose: 150 mg Documented by: [id number] Admin: 12/01/18 21:05 Dose: 150 mg Documented by: [id number] Discontinued Medications Acetaminophen (Tylenol) 1,000 mg PO NOW STA Stop: 12/01/18 12:44 Last Admin: 12/01/18 14:26 Dose: 1,000 mg Documented by: [id number] Bacitracin (Bacitracin) Confirm Administered Dose 50,000 units .ROUTE .STK-MED ONE Stop: 12/02/18 14:38 Last Admin: 12/02/18 15:23 Dose: 50,000 units Documented by: [id number] Fentanyl Citrate (Fentanyl Citrate) 25 mcg IV NOW ONE Stop: 12/01/18 12:44 Last Admin: 12/01/18 14:06 Dose: 25 mcg Documented by: [id number] Hydrochlorothiazide (Hctz) 25 mg PO QA [facility]EENA Stop: 01/01/19 08:59 Last Admin: 12/03/18 08:28 Dose: 25 mg Documented by: [id number] Admin: 12/02/18 07:48 Dose: 25 mg Documented by: [id number] Hydromorphone HCl (Dilaudid) 0.5 mg IV NOW STA Stop: 12/01/18 15:15 Last Admin: 12/01/18 15:21 Dose: 0.5 mg Documented by: [id number] Sodium Chloride (Nss 1000ml) 1,000 mls @ 999 mls/hr IV .Q1H1M ONE Stop: 12/01/18 13:33 Last Infusion: 12/01/18 16:00 Dose: 0 mls/hr Documented by: [id number] Admin: 12/01/18 15:27 Dose: 999 mls/hr Documented by: [id number] Promethazine HCl 12.5 mg/ (Sodium Chloride) 50.5 mls @ 202 mls/hr IV NOW STA Stop: 12/01/18 12:47 Last Infusion: 12/01/18 15:00 Dose: 0 mls/hr Documented by: [id number] Admin: 12/01/18 14:26 Dose: 202 mls/hr Documented by: [id number] Piperacillin Sod/Tazobactam Sod (Zosyn) 3.375 gm in 115 mls @ 230 mls/hr IV NOW STA Stop: 12/01/18 13:10 Last Infusion: 12/01/18 15:30 Dose: 0 mls/hr Documented by: [id number] Admin: 12/01/18 14:47 Dose: 230 mls/hr Documented by: [id number] Vancomycin HCl (Vancomycin Hcl) 1,000 mg in 270 mls @ 125 mls/hr IV NOW STA; Protocol Stop: 12/01/18 14:50 Last Infusion: 12/01/18 19:24 Dose: 0 mls/hr Documented by: [id number] Admin: 12/01/18 17:06 Dose: 125 mls/hr Documented by: [id number] Sodium Chloride (Nss 1000ml) 1,000 mls @ 80 mls/hr IV .[id number] MEENA Stop: 12/31/18 14:44 Last Infusion: 12/01/18 19:45 Dose: 0 mls/hr Documented by: [id number] Admin: 12/01/18 17:07 Dose: 80 mls/hr Documented by: [id number] Sodium Chloride (Nss 1000ml) 1,000 mls @ 100 mls/hr IV .Q10H [facility] Stop: 12/31/18 19:08 Last Admin: 12/01/18 20:53 Dose: Not Given Documented by: [id number] Piperacillin Sod/Tazobactam (Sod 3.375 gm/ Dextrose) 115 mls @ 28.75 mls/hr IV Q8H [facility]; Protocol Stop: 12/11/18 20:59 Last Infusion: 12/05/18 09:13 Dose: 0 mls/hr Documented by: [id number] Admin: 12/05/18 05:02 Dose: 28.8 mls/hr Documented by: [id number] Infusion: 12/05/18 01:13 Dose: 0 mls/hr Documented by: [id number] Admin: 12/04/18 21:13 Dose: 28.8 mls/hr Documented by: [id number] Infusion: 12/04/18 17:41 Dose: 0 mls/hr Documented by: [id number] Admin: 12/04/18 14:08 Dose: 28.8 mls/hr Documented by: [id number] Infusion: 12/04/18 08:32 Dose: 0 mls/hr Documented by: [id number] Admin: 12/04/18 04:29 Dose: 28.8 mls/hr Documented by: [id number] Infusion: 12/04/18 01:34 Dose: 0 mls/hr Documented by: [id number] Admin: 12/03/18 21:12 Dose: 28.8 mls/hr Documented by: [id number] Infusion: 12/03/18 17:19 Dose: 0 mls/hr Documented by: [id number] Admin: 12/03/18 13:07 Dose: 28.8 mls/hr Documented by: [id number] Infusion: 12/03/18 10:23 Dose: 0 mls/hr Documented by: [id number] Admin: 12/03/18 06:25 Dose: 28.8 mls/hr Documented by: [id number] Infusion: 12/03/18 00:53 Dose: 0 mls/hr Documented by: [id number] Admin: 12/02/18 20:36 Dose: 28.8 mls/hr Documented by: [id number] Infusion: 12/02/18 18:35 Dose: 0 mls/hr Documented by: [id number] Admin: 12/02/18 13:05 Dose: 30 mls/hr Documented by: [id number] Infusion: 12/02/18 09:34 Dose: 0 mls/hr Documented by: [id number] Admin: 12/02/18 05:05 Dose: 28.8 mls/hr Documented by: [id number] Infusion: 12/02/18 02:00 Dose: 0 mls/hr Documented by: [id number] Admin: 12/01/18 21:53 Dose: 28.8 mls/hr Documented by: [id number] Daptomycin 475 mg/ Syringe 9.5 mls @ 3.25 mls/min IV DAILY@2100 [facility]EENA; Protocol Stop: 12/11/18 20:59 Last Admin: 12/04/18 21:07 Dose: 3.25 mls/min Documented by: [id number] Admin: 12/03/18 21:12 Dose: 3.25 mls/min Documented by: [id number] Admin: 12/02/18 20:36 Dose: 3.25 mls/min Documented by: [id number] Admin: 12/01/18 20:51 Dose: 3.25 mls/min Documented by: [id number] Famotidine 20 mg/ Syringe 5 mls @ 2.5 mls/min IV DAILY [facility] Stop: 01/01/19 08:59 Last Admin: 12/03/18 08:27 Dose: 2.5 mls/min Documented by: [id number] Admin: 12/02/18 07:49 Dose: 2.5 mls/min Documented by: [id number] Potassium Chloride (K Markie / Wtr) 10 meq in 100 mls @ 100 mls/hr IV 2100 ONE Stop: 12/01/18 21:59 Last Infusion: 12/01/18 22:05 Dose: 0 mls/hr Documented by: [id number] Admin: 12/01/18 20:55 Dose: 100 mls/hr Documented by: [id number] Sodium Chloride (Nss 1000ml) 1,000 mls @ 100 mls/hr IV .Q10H [facility] Stop: 12/03/18 06:00 Last Infusion: 12/03/18 06:26 Dose: 0 mls/hr Documented by: [id number] Admin: 12/03/18 03:12 Dose: 100 mls/hr Documented by: [id number] Infusion: 12/03/18 03:12 Dose: 100 mls/hr Documented by: [id number] Admin: 12/02/18 17:35 Dose: 100 mls/hr Documented by: [id number] Potassium Chloride (K Markie / Wtr) 10 meq in 100 mls @ 100 mls/hr IV Q1H [facility]EE[facility] Stop: 12/04/18 10:29 Last Infusion: 12/04/18 10:45 Dose: 0 mls/hr Documented by: [id number] Admin: 12/04/18 09:38 Dose: 100 mls/hr Documented by: [id number] Infusion: 12/04/18 09:32 Dose: 100 mls/hr Documented by: [id number] Admin: 12/04/18 08:32 Dose: 100 mls/hr Documented by: [id number] Influenza Virus Vaccine Quadrival (Flucelvax Quad Vaccine) 0.5 ml IM .ONCE ONE Stop: 12/01/18 19:46 Last Admin: 12/03/18 08:29 Dose: 0.5 ml Documented by: [id number] Oxycodone HCl (Roxicodone Immediate Rel) 5 mg PO Q4H PRN PRN Reason: pain Stop: 12/15/18 19:08 Last Admin: 12/02/18 12:04 Dose: 5 mg Documented by: [id number] Admin: 12/02/18 01:05 Dose: 5 mg Documented by: [id number] Oxycodone/Acetaminophen (Percocet 5mg/325mg) Confirm Administered Dose 1 tab .ROUTE .STK-MED ONE Stop: 12/01/18 18:16 Last Admin: 12/01/18 18:16 Dose: 1 tab Documented by: [id number] Oxycodone/Acetaminophen (Percocet 5mg/325mg) Confirm Administered Dose 1 tab .ROUTE .STK-MED ONE Stop: 12/01/18 18:16 Last Admin: 12/01/18 18:16 Dose: 1 tab Documented by: [id number] Pneumococcal Polyvalent Vaccine (Pneumovax-23) 25 mcg IM .ONCE ONE Stop: 12/01/18 19:46 Last Admin: 12/03/18 08:32 Dose: 25 mcg Documented by: [id number] Potassium Chloride (Klor-Con M20) 40 meq PO NOW STA Stop: 12/01/18 14:36 Last Admin: 12/01/18 17:12 Dose: Not Given Documented by: [id number] Potassium Chloride (Klor-Con M10) Confirm Administered Dose 40 meq PO .STK-MED ONE Stop: 12/01/18 17:11 Last Admin: 12/01/18 17:12 Dose: 40 meq Documented by: [id number] Potassium Chloride (Klor-Con M10) 10 meq PO Q48H [facility] Stop: 01/01/19 08:59 Last Admin: 12/02/18 07:46 Dose: 10 meq Documented by: [id number] Potassium Chloride (Klor-Con M20) 20 meq PO BID [facility]EE[facility] Stop: 01/02/19 08:59 Last Admin: 12/03/18 08:44 Dose: 20 meq Documented by: [id number] Promethazine HCl (Phenergan) Confirm Administered Dose 25 mg .ROUTE .STK-MED ONE Stop: 12/01/18 14:21 Last Admin: 12/01/18 15:33 Dose: Not Given Documented by: [id number] Scopolamine (Transderm-Scop) 1.5 mg TD NOW ONE Stop: 12/02/18 13:46 Last Admin: 12/02/18 18:40 Dose: Not Given Documented by: [id number] Sodium Hypochlorite (Dakin's Full Strength) 1 appln EXT TODAY@1600 ONE Stop: 12/02/18 16:01 Last Admin: 12/02/18 17:51 Dose: Not Given Documented by: [id number] Verapamil HCl (Calan Sr) 120 mg PO QAM [facility]EE[facility] Stop: 01/01/19 08:59 Last Admin: 12/04/18 08:36 Dose: 120 mg Documented by: [id number] Admin: 12/03/18 08:28 Dose: 120 mg Documented by: [id number] Admin: 12/02/18 07:46 Dose: 120 mg Documented by: [id number] Medical Decision Making Differential Diagnosis Differential diagnosis: Etiologies such as cellulitis, abscess, MRSA infection, DVT, necrotizing fasciitis, dermatitis, drug eruption, as well as others were entertained. Medical Records Attestation: I reviewed the patient's medical records. Home Medications Current Medication List: was personally reviewed by me Laboratory Data Attestation: I reviewed the patient's lab results. Result diagrams: 12/05/18 05:41 12/05/18 05:41 Lab Results 12/01/18 12/01/18 12/01/18 Range/Units 14:00 14:00 14:00 WBC 22.91 H (4.8-10.8) K/uL RBC 4.27 (4.2-5.4) M/uL Hgb 12.1 (12.0-16.0) g/dL Hct 36.5 L (37-47) % MCV 85.5 (80-100) fL MCH 28.3 (25-34) pg MCHC 33.2 (32-36) g/dL RDW Std Deviation 46.0 (36.4-46.3) fL RDW Coeff of Christina 14.8 H (11.5-14.5) % Plt Count 264 (130-400) K/uL MPV 9.0 (7.4-10.4) fL Immature Gran % (Auto) 0.4 % Neut % (Auto) 84.4 % Lymph % (Auto) 8.8 % [place] % (Auto) 5.9 % Eos % (Auto) 0.4 % Baso % (Auto) 0.1 % Immature Gran # (Auto) 0.09 H (0.00-0.02) K/uL Neut # (Auto) 19.32 H (1.4-6.5) K/uL Lymph # (Auto) 2.01 (1.2-3.4) K/uL [place] # (Auto) 1.36 H (0.11-0.59) K/uL Eos # (Auto) 0.10 (0-0.5) K/uL Baso # (Auto) 0.03 (0-0.2) K/uL ESR (0-21) mm/hr PT (9.0-12.0) Seconds INR (0.9-1.1) APTT (21.0-31.0) Seconds PTT Ratio Sodium 137 (136-145) mmol/L Potassium 3.0 L (3.5-5.1) mmol/L Chloride 97 L (98-107) mmol/L Carbon Dioxide 31 (21-32) mmol/L Anion Gap 9.0 (3-11) BUN 19 H (7-18) mg/dl Creatinine 1.26 H (0.6-1.2) mg/dl Est Cr Clr Drug Dosing Not Reportable Est GFR ( Amer) 51.8 Est GFR (Non-Af Amer) 44.7 BUN/Creatinine Ratio 15.2 (10-20) Glucose 123 H (70-99) mg/dl Estimat Average Glucose mg/dl Hemoglobin A1c (4.5-5.6) % Lactate (0.4-2.0) mmol/L Calcium 9.1 (8.5-10.1) mg/dl Total Bilirubin 1.8 H (0.2-1) mg/dl AST 26 (15-37) U/L ALT 31 (12-78) U/L Alkaline Phosphatase 124 H (45-117) U/L C-Reactive Protein 15.40 H (0-0.29) mg/dl NT-Pro-B Natriuret Pep 78 (0-900) pg/ml Total Protein 7.6 (6.4-8.2) gm/dl Albumin 3.2 L (3.4-5.0) gm/dl Globulin 4.4 H (2.5-4.0) gm/dl Albumin/Globulin Ratio 0.7 L (0.9-2) Triglycerides (0-150) mg/dl Cholesterol (0-200) mg/dl LDL Cholesterol, Calc mg/dl VLDL Cholesterol, Calc mg/dl HDL Cholesterol mg/dl Cholesterol/HDL Ratio Procalcitonin 3.69 H (0-0.5) ng/ml Urine Color Urine Appearance (Clear) Urine pH (4.5-7.5) Ur Specific [place] (1.000-1.030) Urine Protein (Negative) Urine Glucose (UA) (Negative) Urine Ketones (Negative) Urine Blood (Negative) Urine Nitrite (Negative) Urine Bilirubin (Negative) Urine Urobilinogen (Negative) Ur Leukocyte Esterase (Negative) Urine WBC (Auto) (0-5) /hpf Urine RBC (Auto) (0-4) /hpf U Hyaline Cast (Auto) (0-5) /lpf U Epithel Cells (Auto) (0-5) /lpf Urine Bacteria (Auto) (Negative) Nasal Screen MRSA (PCR) (Negative) Blood Type Antibody Screen Crossmatch 12/01/18 12/01/18 12/01/18 Range/Units 14:00 14:00 14:45 WBC (4.8-10.8) K/uL RBC (4.2-5.4) M/uL Hgb (12.0-16.0) g/dL Hct (37-47) % MCV (80-100) fL MCH (25-34) pg MCHC (32-36) g/dL RDW Std Deviation (36.4-46.3) fL RDW Coeff of Christina (11.5-14.5) % Plt Count (130-400) K/uL MPV (7.4-10.4) fL Immature Gran % (Auto) % Neut % (Auto) % Lymph % (Auto) % [place] % (Auto) % Eos % (Auto) % Baso % (Auto) % Immature Gran # (Auto) (0.00-0.02) K/uL Neut # (Auto) (1.4-6.5) K/uL Lymph # (Auto) (1.2-3.4) K/uL [place] # (Auto) (0.11-0.59) K/uL Eos # (Auto) (0-0.5) K/uL Baso # (Auto) (0-0.2) K/uL ESR > 90 H (0-21) mm/hr PT 11.6 (9.0-12.0) Seconds INR 1.1 (0.9-1.1) APTT 37.8 H (21.0-31.0) Seconds PTT Ratio 1.4 Sodium (136-145) mmol/L Potassium (3.5-5.1) mmol/L Chloride (98-107) mmol/L Carbon Dioxide (21-32) mmol/L Anion Gap (3-11) BUN (7-18) mg/dl Creatinine (0.6-1.2) mg/dl Est Cr Clr Drug Dosing Est GFR ( Amer) Est GFR (Non-Af Amer) BUN/Creatinine Ratio (10-20) Glucose (70-99) mg/dl Estimat Average Glucose mg/dl Hemoglobin A1c (4.5-5.6) % Lactate 1.2 (0.4-2.0) mmol/L Calcium (8.5-10.1) mg/dl Total Bilirubin (0.2-1) mg/dl AST (15-37) U/L ALT (12-78) U/L Alkaline Phosphatase (45-117) U/L C-Reactive Protein (0-0.29) mg/dl NT-Pro-B Natriuret Pep (0-900) pg/ml Total Protein (6.4-8.2) gm/dl Albumin (3.4-5.0) gm/dl Globulin (2.5-4.0) gm/dl Albumin/Globulin Ratio (0.9-2) Triglycerides (0-150) mg/dl Cholesterol (0-200) mg/dl LDL Cholesterol, Calc mg/dl VLDL Cholesterol, Calc mg/dl HDL Cholesterol mg/dl Cholesterol/HDL Ratio Procalcitonin (0-0.5) ng/ml Urine Color Urine Appearance (Clear) Urine pH (4.5-7.5) Ur Specific [place] (1.000-1.030) Urine Protein (Negative) Urine Glucose (UA) (Negative) Urine Ketones (Negative) Urine Blood (Negative) Urine Nitrite (Negative) Urine Bilirubin (Negative) Urine Urobilinogen (Negative) Ur Leukocyte Esterase (Negative) Urine WBC (Auto) (0-5) /hpf Urine RBC (Auto) (0-4) /hpf U Hyaline Cast (Auto) (0-5) /lpf U Epithel Cells (Auto) (0-5) /lpf Urine Bacteria (Auto) (Negative) Nasal Screen MRSA (PCR) (Negative) Blood Type Antibody Screen Crossmatch 12/01/18 12/01/18 12/02/18 Range/Units 16:00 21:25 05:03 WBC 24.48 H (4.8-10.8) K/uL RBC 3.67 L (4.2-5.4) M/uL Hgb 10.6 L (12.0-16.0) g/dL Hct 32.1 L (37-47) % MCV 87.5 (80-100) fL MCH 28.9 (25-34) pg MCHC 33.0 (32-36) g/dL RDW Std Deviation 47.9 H (36.4-46.3) fL RDW Coeff of Christina 14.9 H (11.5-14.5) % Plt Count 209 (130-400) K/uL MPV 8.3 (7.4-10.4) fL Immature Gran % (Auto) 0.4 % Neut % (Auto) 81.3 % Lymph % (Auto) 9.5 % [place] % (Auto) 7.6 % Eos % (Auto) 1.0 % Baso % (Auto) 0.2 % Immature Gran # (Auto) 0.10 H (0.00-0.02) K/uL Neut # (Auto) 19.89 H (1.4-6.5) K/uL Lymph # (Auto) 2.33 (1.2-3.4) K/uL [place] # (Auto) 1.86 H (0.11-0.59) K/uL Eos # (Auto) 0.25 (0-0.5) K/uL Baso # (Auto) 0.05 (0-0.2) K/uL ESR (0-21) mm/hr PT (9.0-12.0) Seconds INR (0.9-1.1) APTT (21.0-31.0) Seconds PTT Ratio Sodium (136-145) mmol/L Potassium (3.5-5.1) mmol/L Chloride (98-107) mmol/L Carbon Dioxide (21-32) mmol/L Anion Gap (3-11) BUN (7-18) mg/dl Creatinine (0.6-1.2) mg/dl Est Cr Clr Drug Dosing Est GFR ( Amer) Est GFR (Non-Af Amer) BUN/Creatinine Ratio (10-20) Glucose (70-99) mg/dl Estimat Average Glucose mg/dl Hemoglobin A1c (4.5-5.6) % Lactate (0.4-2.0) mmol/L Calcium (8.5-10.1) mg/dl Total Bilirubin (0.2-1) mg/dl AST (15-37) U/L ALT (12-78) U/L Alkaline Phosphatase (45-117) U/L C-Reactive Protein (0-0.29) mg/dl NT-Pro-B Natriuret Pep (0-900) pg/ml Total Protein (6.4-8.2) gm/dl Albumin (3.4-5.0) gm/dl Globulin (2.5-4.0) gm/dl Albumin/Globulin Ratio (0.9-2) Triglycerides (0-150) mg/dl Cholesterol (0-200) mg/dl LDL Cholesterol, Calc mg/dl VLDL Cholesterol, Calc mg/dl HDL Cholesterol mg/dl Cholesterol/HDL Ratio Procalcitonin (0-0.5) ng/ml Urine Color [place] Urine Appearance Cloudy A (Clear) Urine pH 5.0 (4.5-7.5) Ur Specific [place] 1.025 (1.000-1.030) Urine Protein Negative (Negative) Urine Glucose (UA) Negative (Negative) Urine Ketones Negative (Negative) Urine Blood 2+ H (Negative) Urine Nitrite Positive A (Negative) Urine Bilirubin Negative (Negative) Urine Urobilinogen Negative (Negative) Ur Leukocyte Esterase Trace H (Negative) Urine WBC (Auto) 1-5 (0-5) /hpf Urine RBC (Auto) 5-10 H (0-4) /hpf U Hyaline Cast (Auto) 5-10 H (0-5) /lpf U Epithel Cells (Auto) 20-30 H (0-5) /lpf Urine Bacteria (Auto) Negative (Negative) Nasal Screen MRSA (PCR) Negative (Negative) Blood Type Antibody Screen Crossmatch 12/02/18 12/02/18 12/03/18 Range/Units 05:03 05:03 05:39 WBC 20.88 H (4.8-10.8) K/uL RBC 2.90 L (4.2-5.4) M/uL Hgb 8.2 L (12.0-16.0) g/dL Hct 25.6 L (37-47) % MCV 88.3 (80-100) fL MCH 28.3 (25-34) pg MCHC 32.0 (32-36) g/dL RDW Std Deviation 49.3 H (36.4-46.3) fL RDW Coeff of Christina 15.3 H (11.5-14.5) % Plt Count 227 (130-400) K/uL MPV 8.9 (7.4-10.4) fL Immature Gran % (Auto) 0.4 % Neut % (Auto) 81.5 % Lymph % (Auto) 10.4 % [place] % (Auto) 6.3 % Eos % (Auto) 1.2 % Baso % (Auto) 0.2 % Immature Gran # (Auto) 0.09 H (0.00-0.02) K/uL Neut # (Auto) 17.00 H (1.4-6.5) K/uL Lymph # (Auto) 2.18 (1.2-3.4) K/uL [place] # (Auto) 1.31 H (0.11-0.59) K/uL Eos # (Auto) 0.25 (0-0.5) K/uL Baso # (Auto) 0.05 (0-0.2) K/uL ESR (0-21) mm/hr PT (9.0-12.0) Seconds INR (0.9-1.1) APTT (21.0-31.0) Seconds PTT Ratio Sodium 138 (136-145) mmol/L Potassium 3.2 L (3.5-5.1) mmol/L Chloride 100 (98-107) mmol/L Carbon Dioxide 32 (21-32) mmol/L Anion Gap 6.0 (3-11) BUN 18 (7-18) mg/dl Creatinine 1.19 (0.6-1.2) mg/dl Est Cr Clr Drug Dosing 58.9 Est GFR ( Amer) 55.5 Est GFR (Non-Af Amer) 47.9 BUN/Creatinine Ratio 15.1 (10-20) Glucose 110 H (70-99) mg/dl Estimat Average Glucose 117 mg/dl Hemoglobin A1c 5.7 H (4.5-5.6) % Lactate (0.4-2.0) mmol/L Calcium 8.6 (8.5-10.1) mg/dl Total Bilirubin 2.3 H (0.2-1) mg/dl AST 18 (15-37) U/L ALT 25 (12-78) U/L Alkaline Phosphatase 102 (45-117) U/L C-Reactive Protein (0-0.29) mg/dl NT-Pro-B Natriuret Pep (0-900) pg/ml Total Protein 6.8 (6.4-8.2) gm/dl Albumin 2.7 L (3.4-5.0) gm/dl Globulin 4.1 H (2.5-4.0) gm/dl Albumin/Globulin Ratio 0.7 L (0.9-2) Triglycerides 74 (0-150) mg/dl Cholesterol 145 (0-200) mg/dl LDL Cholesterol, Calc 86 mg/dl VLDL Cholesterol, Calc 15 mg/dl HDL Cholesterol 44 mg/dl Cholesterol/HDL Ratio 3 Procalcitonin (0-0.5) ng/ml Urine Color Urine Appearance (Clear) Urine pH (4.5-7.5) Ur Specific [place] (1.000-1.030) Urine Protein (Negative) Urine Glucose (UA) (Negative) Urine Ketones (Negative) Urine Blood (Negative) Urine Nitrite (Negative) Urine Bilirubin (Negative) Urine Urobilinogen (Negative) Ur Leukocyte Esterase (Negative) Urine WBC (Auto) (0-5) /hpf Urine RBC (Auto) (0-4) /hpf U Hyaline Cast (Auto) (0-5) /lpf U Epithel Cells (Auto) (0-5) /lpf Urine Bacteria (Auto) (Negative) Nasal Screen MRSA (PCR) (Negative) Blood Type Antibody Screen Crossmatch 12/03/18 12/03/18 12/04/18 Range/Units 05:39 07:20 05:44 WBC 12.72 H (4.8-10.8) K/uL RBC 3.05 L (4.2-5.4) M/uL Hgb 8.7 L (12.0-16.0) g/dL Hct 26.9 L (37-47) % MCV 88.2 (80-100) fL MCH 28.5 (25-34) pg MCHC 32.3 (32-36) g/dL RDW Std Deviation 49.2 H (36.4-46.3) fL RDW Coeff of Christina 15.3 H (11.5-14.5) % Plt Count 250 (130-400) K/uL MPV 9.1 (7.4-10.4) fL Immature Gran % (Auto) 0.3 % Neut % (Auto) 70.5 % Lymph % (Auto) 16.7 % [place] % (Auto) 7.2 % Eos % (Auto) 5.0 % Baso % (Auto) 0.3 % Immature Gran # (Auto) 0.04 H (0.00-0.02) K/uL Neut # (Auto) 8.96 H (1.4-6.5) K/uL Lymph # (Auto) 2.12 (1.2-3.4) K/uL [place] # (Auto) 0.92 H (0.11-0.59) K/uL Eos # (Auto) 0.64 H (0-0.5) K/uL Baso # (Auto) 0.04 (0-0.2) K/uL ESR (0-21) mm/hr PT (9.0-12.0) Seconds INR (0.9-1.1) APTT (21.0-31.0) Seconds PTT Ratio Sodium 136 (136-145) mmol/L Potassium 3.1 L (3.5-5.1) mmol/L Chloride 100 (98-107) mmol/L Carbon Dioxide 30 (21-32) mmol/L Anion Gap 6.0 (3-11) BUN 20 H (7-18) mg/dl Creatinine 1.30 H (0.6-1.2) mg/dl Est Cr Clr Drug Dosing 53.9 Est GFR ( Amer) 49.9 Est GFR (Non-Af Amer) 43.0 BUN/Creatinine Ratio 15.7 (10-20) Glucose 119 H (70-99) mg/dl Estimat Average Glucose mg/dl Hemoglobin A1c (4.5-5.6) % Lactate (0.4-2.0) mmol/L Calcium 8.5 (8.5-10.1) mg/dl Total Bilirubin 1.3 H (0.2-1) mg/dl AST 17 (15-37) U/L ALT 20 (12-78) U/L Alkaline Phosphatase 106 (45-117) U/L C-Reactive Protein (0-0.29) mg/dl NT-Pro-B Natriuret Pep (0-900) pg/ml Total Protein 6.0 L (6.4-8.2) gm/dl Albumin 2.3 L (3.4-5.0) gm/dl Globulin 3.7 (2.5-4.0) gm/dl Albumin/Globulin Ratio 0.6 L (0.9-2) Triglycerides (0-150) mg/dl Cholesterol (0-200) mg/dl LDL Cholesterol, Calc mg/dl VLDL Cholesterol, Calc mg/dl HDL Cholesterol mg/dl Cholesterol/HDL Ratio Procalcitonin (0-0.5) ng/ml Urine Color Urine Appearance (Clear) Urine pH (4.5-7.5) Ur Specific [place] (1.000-1.030) Urine Protein (Negative) Urine Glucose (UA) (Negative) Urine Ketones (Negative) Urine Blood (Negative) Urine Nitrite (Negative) Urine Bilirubin (Negative) Urine Urobilinogen (Negative) Ur Leukocyte Esterase (Negative) Urine WBC (Auto) (0-5) /hpf Urine RBC (Auto) (0-4) /hpf U Hyaline Cast (Auto) (0-5) /lpf U Epithel Cells (Auto) (0-5) /lpf Urine Bacteria (Auto) (Negative) Nasal Screen MRSA (PCR) (Negative) Blood Type O Negative Antibody Screen NEGATIVE Crossmatch See Detail 12/04/18 Range/Units 05:44 WBC (4.8-10.8) K/uL RBC (4.2-5.4) M/uL Hgb (12.0-16.0) g/dL Hct (37-47) % MCV (80-100) fL MCH (25-34) pg MCHC (32-36) g/dL RDW Std Deviation (36.4-46.3) fL RDW Coeff of Christina (11.5-14.5) % Plt Count (130-400) K/uL MPV (7.4-10.4) fL Immature Gran % (Auto) % Neut % (Auto) % Lymph % (Auto) % [place] % (Auto) % Eos % (Auto) % Baso % (Auto) % Immature Gran # (Auto) (0.00-0.02) K/uL Neut # (Auto) (1.4-6.5) K/uL Lymph # (Auto) (1.2-3.4) K/uL [place] # (Auto) (0.11-0.59) K/uL Eos # (Auto) (0-0.5) K/uL Baso # (Auto) (0-0.2) K/uL ESR (0-21) mm/hr PT (9.0-12.0) Seconds INR (0.9-1.1) APTT (21.0-31.0) Seconds PTT Ratio Sodium 137 (136-145) mmol/L Potassium 3.2 L (3.5-5.1) mmol/L Chloride 100 (98-107) mmol/L Carbon Dioxide 30 (21-32) mmol/L Anion Gap 7.0 (3-11) BUN 18 (7-18) mg/dl Creatinine 1.22 H (0.6-1.2) mg/dl Est Cr Clr Drug Dosing 57.5 Est GFR ( Amer) 53.8 Est GFR (Non-Af Amer) 46.5 BUN/Creatinine Ratio 15.0 (10-20) Glucose 109 H (70-99) mg/dl Estimat Average Glucose mg/dl Hemoglobin A1c (4.5-5.6) % Lactate (0.4-2.0) mmol/L Calcium 8.9 (8.5-10.1) mg/dl Total Bilirubin 1.1 H (0.2-1) mg/dl AST 16 (15-37) U/L ALT 18 (12-78) U/L Alkaline Phosphatase 117 (45-117) U/L C-Reactive Protein (0-0.29) mg/dl NT-Pro-B Natriuret Pep (0-900) pg/ml Total Protein 6.4 (6.4-8.2) gm/dl Albumin 2.2 L (3.4-5.0) gm/dl Globulin 4.2 H (2.5-4.0) gm/dl Albumin/Globulin Ratio 0.5 L (0.9-2) Triglycerides (0-150) mg/dl Cholesterol (0-200) mg/dl LDL Cholesterol, Calc mg/dl VLDL Cholesterol, Calc mg/dl HDL Cholesterol mg/dl Cholesterol/HDL Ratio Procalcitonin (0-0.5) ng/ml Urine Color Urine Appearance (Clear) Urine pH (4.5-7.5) Ur Specific [place] (1.000-1.030) Urine Protein (Negative) Urine Glucose (UA) (Negative) Urine Ketones (Negative) Urine Blood (Negative) Urine Nitrite (Negative) Urine Bilirubin (Negative) Urine Urobilinogen (Negative) Ur Leukocyte Esterase (Negative) Urine WBC (Auto) (0-5) /hpf Urine RBC (Auto) (0-4) /hpf U Hyaline Cast (Auto) (0-5) /lpf U Epithel Cells (Auto) (0-5) /lpf Urine Bacteria (Auto) (Negative) Nasal Screen MRSA (PCR) (Negative) Blood Type Antibody Screen Crossmatch Imaging Data Radiologist's Impression: Radiology results as stated below per my review and the radiologist's interpretation: LEFT KNEE 4 VIEWS CLINICAL HISTORY: Left knee pain and swelling. Erythema. FINDINGS: AP, crosstable lateral, internally rotated, and externally rotated views of the left knee are compared to study dated 11/19/2018. The skeletal structures are osteopenic. No fracture is seen. A left knee arthroplasty is in near-anatomic alignment. There has been undersurface remodeling of the patella. No bony erosion or periostitis is identified. There is no periprosthetic lucency. A large joint effusion is noted. Soft tissue edema is present around the knee. Midline skin clips are noted. IMPRESSION: 1. No acute bony abnormality is identified. 2. A left knee arthroplasty is in near anatomic alignment. 3. Soft tissue swelling and joint effusion. These are nonspecific findings given recent surgery and may represent expected postoperative change. Clinical correlation will be required. Electronically signed by: Satya Gonzalez M.D. 12/01/2018 1:12 PM ULTRASOUND LEFT LOWER EXTREMITY VENOUS CLINICAL HISTORY: Left leg pain and swelling. COMPARISON STUDY: Bilateral lower extremity venous ultrasound dated 08/02/2017. TECHNIQUE: Real-time, grayscale, and color Doppler sonography of the deep veins of the left lower extremity was performed from the inguinal crease to the calf. Compression and augmentation were utilized. The patient could not tolerate compression of all vessels. FINDINGS: There is no sonographic evidence of deep venous thrombosis identified in the left lower extremity. The common femoral, superficial femoral, and popliteal veins are patent and normally compressible. The greater saphenous vein and the profunda femoris vein at the junction with the common femoral vein are clear. The visualized calf veins are patent. IMPRESSION: There is no sonographic evidence of deep venous thrombosis identified in the left lower extremity. Electronically signed by: Satya Gonzalez M.D. 12/01/2018 3:21 PM Blood Pressure Blood Pressure Findings: Normal blood pressure MDM Narrative This patient was evaluated and appeared to be in no significant distress. Physical examination is concerning for patchy erythema that seems to be tracking laterally around her recent knee replacement site. There is a small amount of serosanguineous drainage coming from the wound. Gi are in place. IV access was obtained and laboratory work was drawn. The patient was placed on the lens gauger. She is noted to be slightly tachycardic and is afebrile. Patient was hydrated with normal saline solution, given IV Phenergan and fentanyl for her discomforts. WBC is concerning at 22.9. Lactic acid is within normal limits. Patient was started on IV Zosyn and vancomycin. Consultations with both orthopedic surgery, Dr. Dubon as well as internal medicine, Dr. Pate were placed. Patient will be admitted for further management. She is aware of the plan and agrees. Impression & Plan Leukocytosis, Cellulitis of left knee Discharge Plan Visit Data *Final* Discharge Date/Time: 12/01/18 18:11 Chief Complaint: Infection Stated Complaint: REDNESS AROUND INCISION SITE, HEAT, NAUSEA ED Provider: Mona Camarena ED Midlevel Provider: Leora Everett Discharge Problem: Leukocytosis, Cellulitis of left knee Patient Disposition: Admitted As Inpatient Discharge Instructions Interventions: ED Discharge Assessment Last Done: 12/01/18 18:11 Discharge Problem: Leukocytosis Qualifiers: Leukocytosis type: unspecified Qualified Code(s): D72.829 - Elevated white blood cell count, unspecified The scribe's documentation has been prepared under my direction and personally reviewed by me in its entirety. I confirm that the note above accurately reflects all work, treatment, procedures, and medical decision making performed by me.
--- NOTE | 2018-12-01 15:56 | XRay Report ---
SINGLE VIEW CHEST CLINICAL HISTORY: Fever. FINDINGS: An AP, portable, upright chest radiograph is compared to study dated 11/11/2018 and correlate d with chest CT dated 01/31/2012. The examination is degraded by portable technique and patient rotat ion. A right subclavian central venous infusion port is unchanged in position. The heart is top geoff l for projection. The pulmonary vasculature is noncongested. There are low lung volumes with chronic elevation of the right hemidiaphragm and bibasilar atelectasis. No airspace consolidation or large pl eural effusion is identified. No pneumothorax is seen. The skeletal structures are osteopenic. The [place] thorax is grossly intact. IMPRESSION: Low lung volumes with no acute cardiopulmonary abnormality. Electronically signed by: Satya Gonzalez M.D. 12/01/2018 3:55 PM
--- NOTE | 2018-12-01 16:25 | History & Physical Report ---
Date of Service December 01, 2018 Assessment & Plan (1) Cellulitis of left knee: No indication for immediate surgical intervention. Spoke with Dr. Hagan and Dr. Dunn (internal medicine). Will admit to hospital for IV antibiotics. Regular diet. Dr. Hagan to see tomorrow. Will make NPO after midnight in case Dr. Hagan would like to I&D her wound. (2) Leukocytosis: (3) Nausea: History of Present Illness Patient is a 67 year old female that is presenting to the Emergency Room with complaints of left knee pain. She is status post a left knee replacement [address] Hagan. The patient reports that she has had significant draina ge from the wound since surgery. The patient reports that she was admitted at [facility] for 4 days following her surgery for bleeding from her incision site. She notes that she was transfused 2 units of blood during her hospitalization. Last night the entire leg became painful last night and that she cannot sleep secondary to the pain. She states that the leg is swollen, red, and warm to the touch. She notes that she has some leakage from the incision. She reports a fever peaking at 101.4F yesterday. She notes that she is taking baby aspirin but denies any other medication for the pain. Primary Care Provider: MANJU Barragan Allergies Allergy/AdvReac Type Severity Reaction Status Date / Time Cipro Allergy Mild RASH Verified 10/16/17 08:30 ciprofloxacin Allergy Mild RASH Verified 12/01/18 12:37 Quinolones Allergy Mild RASH Verified 12/01/18 12:37 sumatriptan AdvReac Mild PALPITATIONS, Verified 12/01/18 12:37 HEART RACING theophylline AdvReac Mild PALPITATIONS, Verified 12/01/18 12:37 HEART RACING prednisone AdvReac Unknown PALPITATIONS, Verified 12/01/18 12:37 NAUSEA epinephrine AdvReac TACHYCARDIA Verified 12/01/18 12:37 Home Medications Home Medications Medication Instructions Recorded Confirmed Type citalopram 40 mg PO QAM #0 11/17/15 12/01/18 History losartan 25 mg PO QAM #0 tab 03/07/17 12/01/18 History amitriptyline 50 mg PO HS #0 tab 07/31/17 12/01/18 History trazodone 150 mg PO HS #0 tab 07/31/17 12/01/18 History lamotrigine [Lamictal] 100 mg PO BID 03/25/18 12/01/18 History fluticasone propionate 50 1 spray INTRANASAL DAILY PRN gm 10/09/18 12/01/18 History mcg/actuation nasal spray,suspension multivit with 1 tab PO DAILY 10/11/18 12/01/18 History ibcptgdi-vzwg-KZ-lutein 8 mg iron-400 mcg-300 mcg tablet ranitidine 150 mg tablet 300 mg PO HS 10/11/18 12/01/18 History hydrochlorothiazide 25 mg PO QAM 11/08/18 12/01/18 History pantoprazole 40 mg PO BID 11/08/18 12/01/18 History potassium chloride [Klor-Con 10] 10 meq PO Q OTHER DAY 11/08/18 12/01/18 History verapamil 120 mg PO QAM 11/08/18 12/01/18 History aspirin [Ecotrin Low Strength] 81 mg PO BID #84 tab 11/20/18 12/01/18 Rx oxycodone 5 mg PO Q4H PRN #40 tab 11/20/18 12/01/18 Rx Past Med/Surg History Medical History Hypokalemia chronic- on KCL 10mg QOD Anxiety Asthma stable Bipolar disorder Chronic back pain Depression GERD (gastroesophageal reflux disease) controlled Hypertension Morbid obesity Sarcoidosis no pulmonary issues; does have occasional LE nodules Ulcerative colitis s/p ileostomy and subsequent reverse; no recent flares Surgical History History of arthroscopy of right shoulder 08/16/17: LMA#4 + PNB at [facility] [place] History of biopsy RLE nodule History of cholecystectomy + appendectomy History of colonoscopy History of esophagogastroduodenoscopy (EGD) History of ileostomy History of lymph node biopsy dx sarcoidosis History of reversal of ileostomy History of total abdominal hysterectomy and bilateral salpingo-oophorectomy History of total knee replacement right History of vascular access device port right chest wall (2/2 poor venous access) S/P total knee arthroplasty 11/19/18- L TKA done by Dr. Hagan Family History Mother Family history of reaction to anesthesia PONV, SLOW TO WAKE Social History Preferred Language: Moh[place] Communication Ability: Effective Refractory Worker Required: No Beliefs That Will Affect Care: None marital status: Current Living Situation: Spouse Feels Safe at Home: Yes Smoking Status: Never smoker Second Hand Exposure: Yes (EX USED TO SMOKE) ; Hx Alcohol Use: No Hx Substance Use: No Review of Systems Review of Systems: All systems reviewed & are unremarkable except as noted in HPI & below Physical Exam Constitutional: + morbidly obese, well groomed and cooperative; not ill appearing and no altered mental status Respiratory: normal respiratory effort Cardiovascular: Extremities: normal capillary refill and + vascular access device; no calf tenderness and no edema Musculoskeletal: L knee: midline incision with mari in place. Erythematous area baseball diameter over the distal lateral aspect of the wound. Pinpoint area of purulence at the incision site as well as another pinpoint area of serous drainage. Active ROM 0-30, Passive ROM 0-45. NVI Skin: + erythema Neurologic: normal touch/pain/proprioception, moves all extremities and awake Results & Data Vital Signs (Past 12 Hours) Vital Signs Temp Pulse Pulse Resp BP BP Pulse Ox 12/01/18 14:14 97 H 16 145/71 H 94 12/01/18 14:12 96 H 16 96 12/01/18 11:47 36.9 C 109 H 20 100/64 98 (1) Leukocytosis Leukocytosis type: unspecified Qualified Code(s): D72.829 - Elevated white blood cell count, unspecified
[2018-12-01 16:59] LABS: Appearance Urine Cloudy (Clear); Bacteria Urine Automated Negative (Negative); Blood Urine 2+ (Negative); Color Urine Orange; Epithelial Cell Urine Auto 20-30 /lpf (0-5); Glucose Urine UA Negative (Negative); Ketones Urine Negative (Negative); Leukocyte Esterase Urine Trace (Negative); Nitrite Urine Positive (Negative); Protein Urine Negative (Negative); Specific Gravity Urine 1.025 (1.000-1.030); Urobilinogen Urine Negative (Negative)
[2018-12-01] MEDS ORDERED: POTASSIUM CHLORIDE 10 MEQ TABCR PO ONE (17:10)
[2018-12-01 17:20] LABS: Bilirubin Urine Negative (Negative); Ictotest Urine Negative (Negative)
--- NOTE | 2018-12-01 17:24 | Hospitalist Consultation ---
Date of Consultation December 01, 2018 Assessment & Plan (1) Sepsis: Patient admitted under orthopedics Medicine consulted Infectious disease consult placed Obtaining blood cultures and swab from the edges of the incision we will start the daptomycin for most likely gram-positive coverage and due to declining patient is renal function. N.p.o. after midnight for possible surgical procedure tomorrow by Ortho and joint aspiration or washout. Pain management Hold anticoagulation for now since patient is going to have surgery tomorrow ESR and CRP pending BNP pending CODE STATUS: DNI DNR per patient's request Present on Admission?: Yes (2) Cellulitis of left knee: As above Present on Admission?: Yes (3) Leukocytosis: Appears to be related to sepsis with elevated procalcitonin of 3.69, lactate 1.2.Trend down . Obtain Blood cx , wound cx , nasal swab for MRSA. Start daptomycin.Consult ID. Present on Admission?: Yes (4) Hypokalemia: Chronic issue, continue daily monitoring and potassium replenishment. Present on Admission?: Yes (5) Hypertension: Stable at this point, continue monitoring. Continue home medicine: Hydrochlorothiazide 25 mg p.o. every morning, losartan 25 mg p.o. every morning, potassium chloride 10 mEq p.o. q. other day, verapamil 120 mg p.o. every morning. Hold aspirin 81 p.o. twice daily while patient is preop. Present on Admission?: Yes (6) Hx of sarcoidosis: Currently stable no issues Present on Admission?: Yes (7) Depression: Currently stable. Continue amitriptyline 50 mg p.o. nightly, continue citalopram 40 mg p.o. every morning, continue trazodone 150 mg p.o. every morning Present on Admission?: Yes (8) Bipolar 1 disorder, depressed: See above, continue lamotrigine 100 mg p.o. twice daily Present on Admission?: Yes (9) Seasonal allergies: Continue fluticasone propionate 50 MCG's spray 1 spray intranasal daily as needed for sneezing and allergy symptoms Present on Admission?: Yes History of Present Illness Reason for Consultation: Medical management of chronic medical issues Requesting Physician: Dr. Radu Acuña orthopedic History of Present Illness Patient is a 67 years old female with past medical history of osteoarthritis of the bilateral knees, sarcoidosis, hypertension, morbid obesity, bipolar disorder, chronic back pain, depression, GERD, ulcerative colitis, anxiety, asthma, chronic hypokalemia who was brought to the emergency room with a complaint of left knee pain. Patient is status post left knee replacement [address] Hagan. Patient reports that her pain has been ongoing since surgery and that she had significant drainage for which she was seen in the ER previously. Patient reports fever of 101.4 F and chills yesterday. Patient did not try anything to relieve her pain. Patient is not able to ambulate on her left foot. Patient reports that her knee is red swollen and warm to touch. Patient took some baby aspirin for pain but that did not help much. Labs are reviewed: WBC of 22.91, hemoglobin 12.1, hematocrit 36.5, platelet 264, PT 11.6, INR 1.1, APTT 37.8, sodium 137, potassium 3, chloride 97, anion gap 9, BUN 19, creatinine 1.26, GFR 44.7, lactate 1.2, total bili 1.8, AST 26, ALT 31, alkaline ph osphatase 124, procalcitonin 3.69. Urine still pending. Chest x-rays low lung volumes with no acute cardiopulmonary abnormality. Left knee x-rays no acute bony abnormalities identified, a left knee arthroplasty is in near anatomic alignment. Soft tissue swelling and joint effusion. Allergies Allergy/AdvReac Type Severity Reaction Status Date / Time Cipro Allergy Mild RASH Verified 10/16/17 08:30 ciprofloxacin Allergy Mild RASH Verified 12/01/18 12:37 Quinolones Allergy Mild RASH Verified 12/01/18 12:37 sumatriptan AdvReac Mild PALPITATIONS, Verified 12/01/18 12:37 HEART RACING theophylline AdvReac Mild PALPITATIONS, Verified 12/01/18 12:37 HEART RACING prednisone AdvReac Unknown PALPITATIONS, Verified 12/01/18 12:37 NAUSEA epinephrine AdvReac TACHYCARDIA Verified 12/01/18 12:37 Home Medications Home Medications Medication Instructions Recorded Confirmed Type citalopram 40 mg PO QAM #0 11/17/15 12/01/18 History losartan 25 mg PO QAM #0 tab 03/07/17 12/01/18 History amitriptyline 50 mg PO HS #0 tab 07/31/17 12/01/18 History trazodone 150 mg PO HS #0 tab 07/31/17 12/01/18 History lamotrigine [Lamictal] 100 mg PO BID 03/25/18 12/01/18 History fluticasone propionate 50 1 spray INTRANASAL DAILY PRN gm 10/09/18 12/01/18 History mcg/actuation nasal spray,suspension multivit with 1 tab PO DAILY 10/11/18 12/01/18 History ovrvlnkk-rrfw-QG-lutein 8 mg iron-400 mcg-300 mcg tablet ranitidine 150 mg tablet 300 mg PO HS 10/11/18 12/01/18 History hydrochlorothiazide 25 mg PO QAM 11/08/18 12/01/18 History pantoprazole 40 mg PO BID 11/08/18 12/01/18 History potassium chloride [Klor-Con 10] 10 meq PO Q OTHER DAY 11/08/18 12/01/18 History verapamil 120 mg PO QAM 11/08/18 12/01/18 History aspirin [Ecotrin Low Strength] 81 mg PO BID #84 tab 11/20/18 12/01/18 Rx oxycodone 5 mg PO Q4H PRN #40 tab 11/20/18 12/01/18 Rx Patient History Medical History Hypokalemia chronic- on KCL 10mg QOD Anxiety Asthma stable Bipolar disorder Chronic back pain Depression GERD (gastroesophageal reflux disease) controlled Hypertension Morbid obesity Sarcoidosis no pulmonary issues; does have occasional LE nodules Ulcerative colitis s/p ileostomy and subsequent reverse; no recent flares Surgical History History of arthroscopy of right shoulder 08/16/17: LMA#4 + PNB at [facility] [place] History of biopsy RLE nodule History of cholecystectomy + appendectomy History of colonoscopy History of esophagogastroduodenoscopy (EGD) History of ileostomy History of lymph node biopsy dx sarcoidosis History of reversal of ileostomy History of total abdominal hysterectomy and bilateral salpingo-oophorectomy History of total knee replacement right History of vascular access device port right chest wall (2/2 poor venous access) S/P total knee arthroplasty 11/19/18- L TKA done by Dr. Hagan Family History Mother Family history of reaction to anesthesia PONV, SLOW TO [place]KE Social History Preferred Language: Mohawk Communication Ability: Effective Superintendent Mechanical Required: No Beliefs That Will Affect Care: None marital status: Current Living Situation: Spouse Feels Safe at Home: Yes Smoking Status: Never smoker Second Hand Exposure: Yes (EX USED TO SMOKE) ; Hx Alcohol Use: No Hx Substance Use: No Review of Systems Review of Systems: All systems reviewed & are unremarkable except as noted in HPI & below Physical Exam Constitutional: WD/WN, vitals as above well developed and + morbidly obese Eyes: PERRL, conjunctivae normal, anicteric sclerae ENMT: external ear and nose normal, oropharynx normal Neck: trachea midline, no thyromegaly Respiratory: normal respiratory effort, lungs clear to auscultation Cardiovascular: RRR, no murmur, no edema Gastrointestinal (Abdomen): normal bowel sounds, soft, nontender, no hepatosplenomegaly Musculoskeletal: Left knee swelling, warm and associated with erythema around the incision site. The suture intact. No visible pus or drainage at this point. Patient said it was draining before. Again redness is associated with severe pain and immobility of the left knee. Right knee is without any issue. Skin clean dry and intact. Skin: Please see left knee Neurologic: patellar DTR's 2+ bilat, sensation intact Psychiatric: A+Ox3, euthymic affect Lymphatic: no cervical or axillary lymphadenopathy Results & Data Vital Signs (Past 12 Hours) Vital Signs Temp Pulse Pulse Resp BP BP Pulse Ox 12/01/18 16:56 96 H 139/63 98 12/01/18 16:45 97 H 17 93 12/01/18 16:30 92 H 24 12/01/18 16:15 89 22 93 12/01/18 16:00 87 14 94 12/01/18 15:45 92 H 17 90 12/01/18 15:31 92 H 15 139/50 L 95 12/01/18 15:30 97 H 15 98 12/01/18 15:15 98 H 23 96 12/01/18 15:10 101 H 19 94 12/01/18 14:45 93 H 18 95 12/01/18 14:30 98 H 20 161/74 H 97 12/01/18 14:20 96 H 16 96 12/01/18 14:15 97 H 20 145/71 H 97 12/01/18 14:14 97 H 16 145/71 H 94 12/01/18 14:12 96 H 16 96 12/01/18 11:47 36.9 C 109 H 20 100/64 98 PG Care Time/CCT Total # of Minutes Spent Total Time Spent with Patient: Total time spent is greater than 50% in coordination of care (as documented) at patient's floor/unit and/or counseling patient: (1) Sepsis Sepsis acute organ dysfunction status: unspecified Sepsis type: sepsis due to unspecified organism Qualified Code(s): A41.9 - Sepsis, unspecified organism (2) Leukocytosis Leukocytosis type: unspecified Qualified Code(s): D72.829 - Elevated white blood cell count, unspecified
[2018-12-01] MEDS ORDERED: OXYCODONE/ACETAMINOPHEN 5mg/325mg TAB ONE ×2 (18:15)
[2018-12-01] MEDS ORDERED: FLUTICASONE PROPIONATE NA SPR 16 GM BTL PRN (19:09)
[2018-12-01] MEDS ORDERED: PNEUMOCOCCAL ADMINISTRATION CHARGE ONE (19:45)
[2018-12-01] MEDS ORDERED: INFLUENZA VIRUS QUAD VACCINE 0.5 ML SYR IM ONE (19:45)
[2018-12-01] MEDS ORDERED: PNEUMOCOCCAL POLYSACCHARIDES 25 MCG/0.5 ML VIAL/SYR IM ONE (19:45)
[2018-12-01] MEDS ORDERED: INFLUENZA ADMINISTRATION CHARGE ONE (19:45)
--- NOTE | 2018-12-01 20:23 | Orthopedic Progress Note ---
Date of Service December 01, 2018 Assessment & Plan (1) Cellulitis of left knee: Given her leukocytosis and her fever, as well as the increased pain in her left knee, I think it would be best to take her to the operating room tomorrow and do a formal washout of her left knee. I will get good intraoperative cultures then to see if there is any infection. Blood cultures have been drawn and they are currently pending. She is currently on daptomycin. Overall she seems to be feeling okay and stable. She is n.p.o. past midnight tonight and I will probably take her to the operating room around 2:00 tomorrow afternoon. Present on Admission?: Yes Subjective Gay was seen and examined at bedside tonight. I did a knee replacement surgery on her 12 days ago. She has had persistent bloody drainage since the surgery. She was admitted overnight to the hospital a week ago for some postoperative anemia and transfused 2 units of packed red blood cells. Her knee was doing better. We wrapped in a bulky dressing and the drainage was slowing down. She was discharged home. She was doing well with her knee until 2 days ago. The pain became quite intense. She was downgraded to a walker. She noticed increased erythema and redness around her incision site. She came to the emergency room and found to have an elevated white blood cell count. She also has a fever. There are some concerns of a postoperative infection. She was admitted to the hospital and started on daptomycin. The hospitalist was consulted. Physical Exam Musculoskeletal: On physical examination of the left knee, incisions mostly healed. There is no drainage now. The upper half of the incision looks fine however the lower half looks red and inflamed. I am unable to get any purulent discharge. Her legs out in full extension. She is good range of motion of her ankle. Results & Data Vital Signs (Past 12 Hours) Vital Signs Temp Pulse Pulse Resp BP BP Pulse Ox 12/01/18 19:11 37.8 C H 92 H 18 153/87 H 96 12/01/18 18:45 149/86 H 95 12/01/18 18:31 156/64 H 95 12/01/18 18:30 93 12/01/18 18:16 109/45 L 98 12/01/18 18:15 95 12/01/18 18:00 145/68 H 93 12/01/18 17:45 174/78 H 95 12/01/18 17:31 149/56 H 93 12/01/18 17:30 92 12/01/18 17:16 131/64 94 12/01/18 17:15 94 12/01/18 17:00 91 H 119/55 L 96 12/01/18 16:56 96 H 139/63 98 12/01/18 16:45 97 H 17 93 12/01/18 16:30 92 H 24 12/01/18 16:15 89 22 93 12/01/18 16:00 87 14 94 12/01/18 15:45 92 H 17 90 12/01/18 15:31 92 H 15 139/50 L 95 12/01/18 15:30 97 H 15 98 12/01/18 15:15 98 H 23 96 12/01/18 15:10 101 H 19 94 12/01/18 14:45 93 H 18 95 12/01/18 14:30 98 H 20 161/74 H 97 12/01/18 14:20 96 H 16 96 12/01/18 14:15 97 H 20 145/71 H 97 12/01/18 14:14 97 H 16 145/71 H 94 12/01/18 14:12 96 H 16 96 12/01/18 11:47 36.9 C 109 H 20 100/64 98 Laboratory Results H & H 12/01/18 Range/Units 14:00 Hgb 12.1 (12.0-16.0) g/dL Hct 36.5 L (37-47) % Coagulation 12/01/18 Range/Units 14:00 INR 1.1 (0.9-1.1) Diagnostic Findings X-rays of her left knee show the prosthesis to be in anatomic alignment without any evidence of fracture dislocation or loosening PG Care Time/CCT Total # of Minutes Spent Total Time Spent with Patient: Total time spent is greater than 50% in coordination of care (as documented) at patient's floor/unit and/or counseling patient:
[2018-12-01] MEDS: DAPTOmycin 475 MG in SYRINGE 0 ML IV SCH (20:51)
[2018-12-01] MEDS ORDERED: HydrALAZINE 10 MG TAB PO PRN (20:58)
[2018-12-01] MEDS ORDERED: DAPTOmycin 325 MG in SYRINGE 0 ML IV SCH (21:00)
[2018-12-01] MEDS ORDERED: PANTOprazole 40 MG TAB PO SCH (21:00)
[2018-12-01] MEDS ORDERED: VANCOMYCIN HCL 1,500 MG in SODIUM CHLORIDE 0.9% 500 ML IV SCH (21:00)
[2018-12-01] MEDS ORDERED: POTASSIUM CHLORIDE / WTR 10 MEQ/100 ML PLCT IV ONE (21:00)
[2018-12-01] MEDS: lamoTRIgine 100 MG TAB PO SCH (21:04)
[2018-12-01] MEDS: ASPIRIN 81 MG ECTAB PO SCH (21:05)
[2018-12-01] MEDS: AMITRIPTYLINE HCL 50 MG TAB PO SCH (21:05)
[2018-12-01] MEDS: TRAZODONE HCL 50 MG TAB PO SCH (21:05)
[2018-12-01 21:41] LABS: NT Pro B Type Natriuretic Pept 78 pg/ml (0-900)
[2018-12-01] MEDS: PIPERACILLIN/TAZOBACTAM 3.375 GM in DEXTROSE 5% 100 ML IV SCH (21:53)
[2018-12-01] MEDS: OXYCODONE/ACETAMINOPHEN 5mg/325mg TAB PO PRN (21:59)
[2018-12-01] MEDS: METOCLOPRAMIDE HCL INJ 5 MG/ML 2 ML VIAL IV PRN (22:38)
[2018-12-02] MEDS: OXYCODONE HCL IR 5 MG TAB (IMMEDIATE RELEASE) PO PRN ×2 (01:05→12:04)
[2018-12-02] MEDS: ONDANSETRON INJ 2 MG/ML 2 ML VIAL IV PRN ×2 (05:05→22:47)
[2018-12-02] MEDS: PIPERACILLIN/TAZOBACTAM 3.375 GM in DEXTROSE 5% 100 ML IV SCH ×3 (05:05→20:36)
[2018-12-02 05:10] LABS: Basophils # (auto) 0.05 K/uL (0-0.2); Basophils % (auto) 0.2 %; Eosinophils # (auto) 0.25 K/uL (0-0.5); Hematocrit (blood only) 32.1 % (37-47); Hemoglobin 10.6 g/dL (12.0-16.0); Immature Granulocytes % (auto) 0.4 %; Lymphocytes # (auto) 2.33 K/uL (1.2-3.4); Lymphocytes % (auto) 9.5 %; Mean Corpuscular Hemoglobin 28.9 pg (25-34); Mean Corpuscular Volume 87.5 fL (80-100); Mean Platelet Volume 8.3 fL (7.4-10.4); Monocytes # (auto) 1.86 K/uL (0.11-0.59); Monocytes % (auto) 7.6 %; Neutrophils # (auto) 19.89 K/uL (1.4-6.5); Neutrophils % (auto) 81.3 %; Platelet Count 209 K/uL (130-400); RDW Coefficient of Variation 14.9 % (11.5-14.5); RDW Standard Deviation 47.9 fL (36.4-46.3); Red Blood Count 3.67 M/uL (4.2-5.4); White Blood Count 24.48 K/uL (4.8-10.8)
[2018-12-02 05:35] LABS: Albumin Level 2.7 gm/dl (3.4-5.0); BUN Creatinine Ratio 15.1 (10-20); Calcium 8.6 mg/dl (8.5-10.1); Creatinine Clr Calc Pharmacy 58.9 ml/min; Est GFR (African American) 55.5; Est GFR (Non-African American) 47.9; Potassium 3.2 mmol/L (3.5-5.1)
[2018-12-02 05:37] LABS: Albumin Globulin Ratio 0.7 (0.9-2); Bilirubin,Total 2.3 mg/dl (0.2-1); Globulin 4.1 gm/dl (2.5-4.0); Total Protein 6.8 gm/dl (6.4-8.2)
[2018-12-02 06:33] LABS: Estimated Average Glucose 117 mg/dl; Hemoglobin A1C 5.7 % (4.5-5.6)
[2018-12-02] MEDS: OXYCODONE/ACETAMINOPHEN 5mg/325mg TAB PO PRN ×2 (07:44→20:10)
[2018-12-02] MEDS: VERAPAMIL HCL 120 MG TABCR PO SCH (07:46)
[2018-12-02] MEDS: LOSARTAN POTASSIUM 25 MG TAB PO SCH (07:46)
[2018-12-02] MEDS: CEROVITE ADV FORMULA TAB PO SCH (07:46)
[2018-12-02] MEDS: ASPIRIN 81 MG ECTAB PO SCH ×2 (07:47→20:27)
[2018-12-02] MEDS: CITALOPRAM 40 MG TAB PO SCH (07:47)
[2018-12-02] MEDS: lamoTRIgine 100 MG TAB PO SCH ×2 (07:48→20:29)
[2018-12-02] MEDS: hydroCHLOROthiazide 25 MG TAB PO SCH (07:48)
[2018-12-02] MEDS: FAMOTIDINE 20 MG in SYRINGE 3 ML IV SCH (07:49)
[2018-12-02] MEDS: METOCLOPRAMIDE HCL INJ 5 MG/ML 2 ML VIAL IV PRN (07:56)
[2018-12-02] MEDS ORDERED: POTASSIUM CHLORIDE 10 MEQ TABCR PO SCH (09:00)
--- NOTE | 2018-12-02 10:28 | Infectious Disease Consult ---
Date of Consultation December 02, 2018 Assessment & Plan (1) Post op infection: pt will continue on emperic abx for now. please obtain OR cultures. follow culture results. will likely need 6 week IV abx post d/c. further abx will depend on culture results. History of Present Illness Attending Physician: Nick Hagan DO pt admitted with pain, swelling and drainage from left knee incision. had tkr 13 days ago. no f/c. saw ortho and is scheduled for wash out later today. Having pain, asking for increased pain meds. Placed on zosyn and dapto, tolerating well. tmax 37.8. wbc 24, ESR >90, procacitonin 3.6 UA negative. blood cultures pending. mari intact. no cp, sob, cough. no n/v/d/abd pain, no gu symptoms, UA negative. Allergies Allergy/AdvReac Type Severity Reaction Status Date / Time Cipro Allergy Mild RASH Verified 10/16/17 08:30 ciprofloxacin Allergy Mild RASH Verified 12/01/18 12:37 Quinolones Allergy Mild RASH Verified 12/01/18 12:37 sumatriptan AdvReac Mild PALPITATIONS, Verified 12/01/18 12:37 HEART RACING theophylline AdvReac Mild PALPITATIONS, Verified 12/01/18 12:37 HEART RACING prednisone AdvReac Unknown PALPITATIONS, Verified 12/01/18 12:37 NAUSEA epinephrine AdvReac TACHYCARDIA Verified 12/01/18 12:37 Home Medications Home Medications Medication Instructions Recorded Confirmed Type citalopram 40 mg PO QAM #0 11/17/15 12/01/18 History losartan 25 mg PO QAM #0 tab 03/07/17 12/01/18 History amitriptyline 50 mg PO HS #0 tab 07/31/17 12/01/18 History trazodone 150 mg PO HS #0 tab 07/31/17 12/01/18 History lamotrigine [Lamictal] 100 mg PO BID 03/25/18 12/01/18 History fluticasone propionate 50 1 spray INTRANASAL DAILY PRN gm 10/09/18 12/01/18 History mcg/actuation nasal spray,suspension multivit with 1 tab PO DAILY 10/11/18 12/01/18 History fbggkscv-xddl-LX-lutein 8 mg iron-400 mcg-300 mcg tablet ranitidine 150 mg tablet 300 mg PO HS 10/11/18 12/01/18 History hydrochlorothiazide 25 mg PO QAM 11/08/18 12/01/18 History pantoprazole 40 mg PO BID 11/08/18 12/01/18 History potassium chloride [Klor-Con 10] 10 meq PO Q OTHER DAY 11/08/18 12/01/18 History verapamil 120 mg PO QAM 11/08/18 12/01/18 History aspirin [Ecotrin Low Strength] 81 mg PO BID #84 tab 11/20/18 12/01/18 Rx oxycodone 5 mg PO Q4H PRN #40 tab 11/20/18 12/01/18 Rx Patient History Medical History Hypokalemia chronic- on KCL 10mg QOD Anxiety Asthma stable Bipolar disorder Chronic back pain Depression GERD (gastroesophageal reflux disease) controlled Hypertension Morbid obesity Sarcoidosis no pulmonary issues; does have occasional LE nodules Ulcerative colitis s/p ileostomy and subsequent reverse; no recent flares Surgical History History of arthroscopy of right shoulder 08/16/17: LMA#4 + [place] [facility] [place] of biopsy RLE nodule History of cholecystectomy + appendectomy History of colonoscopy History of esophagogastroduodenoscopy (EGD) History of ileostomy History of lymph node biopsy dx sarcoidosis History of reversal of ileostomy History of total abdominal hysterectomy and bilateral salpingo-oophorectomy History of total knee replacement right History of vascular access device port right chest wall (2/2 poor venous access) S/P total knee arthroplasty 11/19/18- L TKA done by Dr. Hagan Family History Mother Family history of reaction to anesthesia PONV, SLOW TO [place]KE Social History Preferred Language: Syriac Communication Ability: Effective Assembly Line Leader Required: No Beliefs That Will Affect Care: None marital status: Current Living Situation: Spouse Other Information That Helps Us Care for You: No Feels Safe at Home: Yes Safety Concerns: Feels Safe At This Time Smoking Status: Never smoker Second Hand Exposure: Yes (EX USED TO SMOKE) ; Hx Alcohol Use: No Hx Substance Use: No Review of Systems Review of Systems: All systems reviewed & are unremarkable except as noted in HPI & below Physical Exam Constitutional: WD/WN, vitals as above Eyes: PERRL, conjunctivae normal, anicteric sclerae ENMT: external ear and nose normal, oropharynx normal Neck: normal visual inspection Respiratory: normal respiratory effort, lungs clear to auscultation Cardiovascular: RRR, no murmur, no edema Gastrointestinal (Abdomen): normal bowel sounds, soft, nontender, no hepatosplenomegaly Musculoskeletal: no cyanosis or clubbing, extremities motor strength 5/5 Skin: no rashes, warm and dry l knee dressin intact, edema noted, min tenderness, mari intact, no drainage noted on my exam Psychiatric: A+Ox3, euthymic affect Results & Data Vital Signs (Past 12 Hours) Vital Signs Temp Pulse Resp BP Pulse Ox 12/02/18 07:42 37.7 C H 86 18 108/62 92 12/01/18 22:54 37.3 C 91 H 14 143/71 H 92 PG Care Time/CCT Total # of Minutes Spent Total Time Spent with Patient: Total time spent is greater than 50% in coordination of care (as documented) at patient's floor/unit and/or counseling patient:
--- NOTE | 2018-12-02 12:50 | Anesthesiology Consultation ---
Date of Service December 02, 2018 Assessment & Plan (1) Encounter for pre-operative examination: Chart Review Chart Review: Acceptable Risk for Surgery Consults Requested none ASA ASA3 Proposed Anesthesia Anesthesia Type: General Risk / Benefits Reviewed With: PT / POA / Parent / Guardian, Accepts Plan and Informed Consent Obtained History Surgery Operation Date: 12/02/18 07:00 Proposed Procedures p Left Knee Incision and Drainage; - Nick Hagan DO s Poly Exchange - Nick Hagan DO Height/Weight Height: 5 ft 3 in Weight: 119.4 kg Allergies Allergy/AdvReac Type Severity Reaction Status Date / Time Cipro Allergy Mild RASH Verified 10/16/17 08:30 ciprofloxacin Allergy Mild RASH Verified 12/01/18 12:37 Quinolones Allergy Mild RASH Verified 12/01/18 12:37 sumatriptan AdvReac Mild PALPITATIONS, Verified 12/01/18 12:37 HEART RACING theophylline AdvReac Mild PALPITATIONS, Verified 12/01/18 12:37 HEART RACING prednisone AdvReac Unknown PALPITATIONS, Verified 12/01/18 12:37 NAUSEA epinephrine AdvReac TACHYCARDIA Verified 12/01/18 12:37 Medications Home Medications Medication Instructions Recorded Confirmed Last Taken citalopram 40 mg PO QAM #0 11/17/15 12/01/18 12/01/18 losartan 25 mg PO QAM #0 tab 03/07/17 12/01/18 12/01/18 amitriptyline 50 mg PO HS #0 tab 07/31/17 12/01/18 11/30/18 trazodone 150 mg PO HS #0 tab 07/31/17 12/01/18 11/30/18 lamotrigine [Lamictal] 100 mg PO BID 03/25/18 12/01/18 12/01/18 fluticasone propionate 50 1 spray INTRANASAL DAILY PRN gm 10/09/18 12/01/18 12/01/18 mcg/actuation nasal spray,suspension multivit with 1 tab PO DAILY 10/11/18 12/01/18 12/01/18 vayvnrcp-eqgk-CE-lutein 8 mg iron-400 mcg-300 mcg tablet ranitidine 150 mg tablet 300 mg PO HS 10/11/18 12/01/18 11/30/18 hydrochlorothiazide 25 mg PO QAM 0912/01/18 12/01/18 pantoprazole 40 mg PO BID 11/08/18 12/01/18 12/01/18 potassium chloride [Klor-Con 10] 10 meq PO Q OTHER DAY 11/08/18 12/01/18 12/01/18 verapamil 120 mg PO QAM 11/08/18 12/01/18 12/01/18 aspirin [Ecotrin Low Strength] 81 mg PO BID #84 tab 11/20/18 12/01/18 12/01/18 oxycodone 5 mg PO Q4H PRN #40 tab 11/20/18 12/01/18 12/01/18 Active Medications Generic Name Dose Route Start Last Admin Trade Name Freq PRN Reason Stop Dose Admin Amitriptyline HCl 50 mg 12/01/18 21:00 12/01/18 21:05 Elavil PO 12/31/18 20:59 50 mg HS MEENA Administration Aspirin 81 mg 12/01/18 21:00 12/02/18 07:47 Ecotrin Ectab PO 12/31/18 20:59 81 mg BID MEENA Administration Citalopram Hydrobromide 40 mg 12/02/18 09:00 12/02/18 07:47 Celexa PO 01/01/19 08:59 40 mg QAM MEENA Administration Hydralazine HCl 10 mg 12/01/18 20:58 12/02/18 07:47 Apresoline PO 12/31/18 20:59 10 mg TID PRN Administration high blood pressure Hydrochlorothiazide 25 mg 12/02/18 09:00 12/02/18 07:48 Hctz PO 01/01/19 08:59 25 mg QAM MEENA Administration Piperacillin Sod/Tazobactam 115 mls @ 28.75 mls/hr 12/01/18 21:00 12/02/18 13:05 Sod 3.375 gm/ Dextrose IV 12/11/18 20:59 30 mls/hr Q8H MEENA Administration Protocol Daptomycin 475 mg/ Syringe 9.5 mls @ 3.25 mls/min 12/01/18 21:00 12/01/18 20:51 IV 12/03/18 20:59 3.25 mls/min DAILY@2100 MEENA Administration Protocol Famotidine 20 mg/ Syringe 5 mls @ 2.5 mls/min 12/02/18 09:00 12/02/18 07:49 IV 01/01/19 08:59 2.5 mls/min DAILY MEENA Administration Lamotrigine 100 mg 12/01/18 21:00 12/02/18 07:48 Lamictal PO 12/31/18 20:59 100 mg BID MEENA Administration Losartan Potassium 25 mg 12/02/18 09:00 12/02/18 07:46 Cozaar PO 01/01/19 08:59 25 mg QAM MEENA Administration Metoclopramide HCl 10 mg 12/01/18 19:09 12/02/18 07:56 Reglan IV 12/31/18 19:08 10 mg Q6H PRN Administration Nausea/Vomiting Multivitamins/Minerals 1 tab 12/02/18 09:00 12/02/18 07:46 Multivitamin W/ Minerals Tab PO 01/01/19 08:59 1 tab QAM MEENA Administration Ondansetron HCl 4 mg 12/01/18 19:09 12/02/18 05:05 Zofran IV 12/31/18 19:08 4 mg Q6H PRN Administration Nausea/Vomiting Oxycodone HCl 5 mg 12/01/18 19:09 12/02/18 12:04 Roxicodone Immediate Rel PO 12/15/18 19:08 5 mg Q4H PRN Administration pain Oxycodone/Acetaminophen 1 - 2 tab 12/01/18 19:09 12/02/18 07:44 Percocet 5mg/325mg PO 12/15/18 19:08 2 tab Q4H PRN Administration Pain Potassium Chloride 10 meq 12/02/18 09:00 12/02/18 07:46 Klor-Con M10 PO 01/01/19 08:59 10 meq Q48H MEENA Administration Ranitidine HCl 300 mg 12/01/18 21:00 12/01/18 21:04 Zantac PO 12/31/18 20:59 300 mg HS MEENA Administration Trazodone HCl 150 mg 12/01/18 21:00 12/01/18 21:05 Desyrel PO 12/31/18 20:59 150 mg HS MEENA Administration Verapamil HCl 120 mg 12/02/18 09:00 12/02/18 07:46 Calan Sr PO 01/01/19 08:59 120 mg QAM MEENA Administration NPO Date Last Intake of Fluids: 12/02/18 Time Last Intake of Fluids: 01:05 Last Intake of Fluids Comment: sip taken with medication; pt allowed sips, chips, medications. Date Last Intake of Solids: 12/01/18 Time Last Intake of Solids: 23:00 Last Intake of Solids Comment: prior to shift. Past Medical History Medical History Hypokalemia chronic- on KCL 10mg QOD Anxiety Asthma stable Bipolar disorder Chronic back pain Depression GERD (gastroesophageal reflux disease) controlled Hypertension Morbid obesity Sarcoidosis no pulmonary issues; does have occasional LE nodules Ulcerative colitis s/p ileostomy and subsequent reverse; no recent flares Exercise / Class Metabolic Activity III < 4 Walking/Shop/Light housework Past Family History Family History Mother Family history of reaction to anesthesia PONV, SLOW TO WAKE Past Surgical History Surgical History History of arthroscopy of right shoulder 08/16/17: LMA#4 + PNB at [facility] History of biopsy RLE nodule History of cholecystectomy + appendectomy History of colonoscopy History of esophagogastroduodenoscopy (EGD) History of ileostomy History of lymph node biopsy dx sarcoidosis History of reversal of ileostomy History of total abdominal hysterectomy and bilateral salpingo-oophorectomy History of total knee replacement right History of vascular access device port right chest wall (2/2 poor venous access) S/P total knee arthroplasty 11/19/18- L TKA done by Dr. Hagan Past Anesthesia History No Hx of Anesthesia Complications and No Family Hx of Anesthesia Complications History of PONV No Hx of Motion Sickness and History of PONV Social History Smoking Status: Never smoker Hx Alcohol Use: No Hx Substance Use: No substance use type: painkillers Substance Use Type Other:: Oxycodone, pt. prescribed for recent knee surgery Last Used Substance: Just Prior to Arrival Physical Exam Vital Signs Last Vital Signs Temp 99.9 F H 12/02/18 07:42 Pulse 86 12/02/18 07:42 Resp 18 12/02/18 07:42 BP 108/62 12/02/18 07:42 Pulse Ox 92 12/02/18 07:42 ENMT Mouth: + dentition abnormality and + chipped teeth Thyromental Distance: > or= 3.5 Finger Breadths Mallampati Class: II Neck normal visual inspection Respiratory normal respiratory effort Auscultation: lungs clear to auscultation bilaterally Cardiovascular Rate/Rhythm: regular rate and regular rhythm Testing Laboratory Results 12/02/18 05:03 12/02/18 05:03 PT 11.6 Seconds (9.0-12.0) 12/01/18 14:00 INR 1.1 (0.9-1.1) 12/01/18 14:00 APTT 37.8 Seconds (21.0-31.0) H 12/01/18 14:00 Hemoglobin A1c 5.7 % (4.5-5.6) H 12/02/18 05:03 Urine Color [place] 12/01/18 16:00 Urine Appearance Cloudy (Clear) A 12/01/18 16:00 Urine pH 5.0 (4.5-7.5) 12/01/18 16:00 Ur Specific [place] 1.025 (1.000-1.030) 12/01/18 16:00 Urine Protein Negative (Negative) 12/01/18 16:00 Urine Glucose (UA) Negative (Negative) 12/01/18 16:00 Urine Ketones Negative (Negative) 12/01/18 16:00 Urine Nitrite Positive (Negative) A 12/01/18 16:00 Ur Leukocyte Esterase Trace (Negative) H 12/01/18 16:00 Urine WBC (Auto) 1-5 /hpf (0-5) 12/01/18 16:00 Urine RBC (Auto) 5-10 /hpf (0-4) H 12/01/18 16:00 U Hyaline Cast (Auto) 5-10 /lpf (0-5) H 12/01/18 16:00 U Epithel Cells (Auto) 20-30 /lpf (0-5) H 12/01/18 16:00 Urine Bacteria (Auto) Negative (Negative) 12/01/18 16:00 Electrocardiogram Date: 12/01/18 Normal sinus rhythm, rate [address] and T wave abnormality Abnormal ECG When compared with ECG of 25-MAR-2018 10:45, No significant change was found Chest X-Ray Date: 12/01/18 FINDINGS: An AP, portable, upright chest radiograph is compared to study dated 11/11/2018 and correlated with chest CT dated 01/31/2012. The examination is de graded by portable technique and patient rotation. A right subclavian central venous infusion port is unchanged in position. The heart is top normal for projection. The pulmonary vasculature is noncongested. There are low lung volumes with chronic elevation of the right hemidiaphragm and bibasilar a telectasis. No airspace consolidation or large pleural effusion is identified. No pneumothorax is seen. The skeletal structures are osteopenic. The bony thorax is grossly intact. IMPRESSION: Low lung volumes with no acute cardiopulmonary abnormality. Stress Test Date: 10/22/14 Type: DSE Resting EF: 60-65% Negative DSE for ischemia @ 77% MPHR Nondiagnostic stress EKG, test terminated 2/2 HTN No significant valvular disease
[2018-12-02] MEDS ORDERED: fentaNYL citrate 100 MCG/2 ML VIAL ONE (13:21)
[2018-12-02] MEDS ORDERED: MIDAZOLAM HCL 1 MG/ML 2ML VIAL ONE (13:22)
[2018-12-02] MEDS ORDERED: PROPOFOL IV EMULSION 10 MG/ML 20 ML VIAL IV ONE (13:29)
[2018-12-02] MEDS ORDERED: ePHEDrine sulfate 50 MG/ML SYR ONE (13:29)
[2018-12-02] MEDS ORDERED: LIDOCAINE HCL 2% 2 ML VIAL/AMP(20MG/ML) INFIL ONE (13:29)
[2018-12-02] MEDS ORDERED: PHENYLEPHRINE 100MCG/ML 5ML SYR ONE (13:29)
[2018-12-02] MEDS ORDERED: SCOPOLAMINE 1.5 MG TDSY ONE (13:37)
[2018-12-02] MEDS ORDERED: SCOPOLAMINE 1.5 MG TDSY TD ONE (13:45)
--- NOTE | 2018-12-02 14:36 | History & Physical Bridge Note ---
Date of Service December 02, 2018 History & Physical Bridge Note I have examined the patient, reviewed the History & Physical and in the interval since the performance of the History & Physical I have noted the following changes of clinical significance: no changes noted
[2018-12-02] MEDS ORDERED: BACITRACIN INJ 50,000 UNIT VIAL ONE (14:37)
[2018-12-02] MEDS ORDERED: HYDROmorphone INJ 2 MG/ML SYR/VIAL ONE (15:16)
[2018-12-02] MEDS ORDERED: DAKIN'S SOLN 0.5% FULL STRENGTH 473ML BTL EXT ONE (16:00)
[2018-12-02] MEDS ORDERED: fentaNYL citrate 100 MCG/2 ML VIAL IV PRN (16:35)
[2018-12-02] MEDS ORDERED: PROMETHAZINE HCL 6.25 MG in SODIUM CHLORIDE 0.9% 50 ML IV PRN (16:35)
[2018-12-02] MEDS ORDERED: ATROPINE SULFATE 0.1 MG/ML 10ML SYR IV PRN (16:35)
--- NOTE | 2018-12-02 16:45 | Operative Report ---
Post Operative Report Pre & Post Diagnosis Operation Date: 12/02/18 07:00 Pre-Op Diagnosis: LEFT KNEE CELLULITIS Post-Op Diagnosis: LEFT KNEE CELLULITIS with possible superficial and/or deep wound infection Procedure Operation Date: 12/02/18 07:00 Actual Procedures p Left Knee Incision and Drainage;(Left) - Nick Hagan DO s Poly Exchange(Left) - Nick Hagan DO Surgeon Nick Hagan DO [employer] Rep[employer]r None Estimated Blood Loss 100 Findings Consistent with Post-Op Diagnosis Specimens Superficial and deep wound cultures Complications none Disposition Disposition: Recovery Room Indications Gay is a pleasant 67-year-old female who underwent a left total knee arth roplasty 12 days ago. She had a lot of drainage from her incision. The drainage started to subside and her pain was significantly improving. Unfortunately about 2 days ago her pain got much worse. She came to the hospital. The wound looks more red and inflamed. There is a very small amount of purulent discharge. Given her current symptoms and her lab values, we elected to proceed with an open I&D of the left knee. Description of Procedure On December 02, 2018 she was brought down from her hospital bed to the preoperative holding area. The operative extremity was identified and signed. She was given another dose of Zosyn preoperatively. She was taken back to the operating room and laid on the table in supine position. She was put under general anesthesia. Left knee was prepped and draped in sterile fashion. A timeout was done. The patient and the operative extremity was properly identified. The previous incision was opened up. Dissection was taken down to the extensor mechanism. There was a large seroma but no areas of abscess or definitive infection. The superficial area did communicate with the deep joint. The ex tensor mechanism was once again opened up in a sub-vastus fashion. Cultures were taken both superficially and deep to the extensor mechanism. Significant time was spent debriding the gutters. The polyethylene component was then removed. After complete debridement was done, the knee was soaked in Dakin solution for 3 minutes. The components were then vigorously scrubbed with a Betadine scrub brush. The wound was then irrigated with 3 L of normal saline solution. The wound was then irrigated with a dilute Betadine lavage that was left in place for 3 minutes. The components were then scrubbed with a Betadine scrub brush. The wound was then irrigated with 3 L normal saline solution. The wound was then irrigated with 3 L normal saline solution with bacitracin. All gloves were changed as well as suction tips and Bovie tips. New drapes were laid down. A size 14 PS polyethylene insert was opened up and snapped into place. An anterior bar was locked. The knee was brought through full range of motion felt to be stable. 2 drains were placed. The extensor mechanism was closed with #1 Vicryl suture. Skin was closed with 2-0 Vicryl and mari. Portions of the skin were also closed with 2-0 nylon in a trauma stitch fashion. The knee was then placed in a large bulky dressing and a knee immobilizer. She was then extubated and transferred to a hospital bed. She was taken to the postanesthesia care unit in stable condition. She tolerated the procedure well. I attest to the content of the Intraoperative Record and any orders documented therein. Any exceptions are noted below.
--- NOTE | 2018-12-02 17:00 | Anesthesiology Progress Note ---
Date of Service December 02, 2018 Anesthesia Post Procedure Vital Signs Vital Signs: Temp Pulse Pulse Pulse Pulse Resp BP 12/02/18 16:50 107 H 20 12/02/18 16:40 108 H 15 12/02/18 16:31 36.1 C L 97 H 13 12/02/18 13:46 37 C 93 H 18 12/02/18 07:42 37.7 C H 86 18 12/01/18 22:54 37.3 C 91 H 14 12/01/18 19:11 37.8 C H 92 H 18 12/01/18 18:45 149/86 H 12/01/18 18:31 156/64 H 12/01/18 18:30 12/01/18 18:16 109/45 L 12/01/18 18:15 12/01/18 18:00 145/68 H 12/01/18 17:45 174/78 H 12/01/18 17:31 149/56 H 12/01/18 17:30 12/01/18 17:16 131/64 12/01/18 17:15 12/01/18 17:00 91 H 119/55 L BP BP Pulse Ox 12/02/18 16:50 103/54 L 99 12/02/18 16:40 134/41 L 100 12/02/18 16:31 157/56 H 100 12/02/18 13:46 143/70 H 93 12/02/18 07:42 108/62 92 12/01/18 22:54 143/71 H 92 12/01/18 19:11 153/87 H 96 12/01/18 18:45 95 12/01/18 18:31 95 12/01/18 18:30 93 12/01/18 18:16 98 12/01/18 18:15 95 12/01/18 18:00 93 12/01/18 17:45 95 12/01/18 17:31 93 12/01/18 17:30 92 12/01/18 17:16 94 12/01/18 17:15 94 12/01/18 17:00 96 Pain Intensity Left Knee: Pain Intensity: 8 Transfer of Care Handoff Completed per policy Notes Mental Status: alert / awake / arousable and participated in evaluation Patient Amnestic to Procedure: Yes Nausea / Vomiting: adequately controlled Pain: adequately controlled Airway Patency, RR, SpO2: stable & adequate BP & HR: stable & adequate Hydration State: stable & adequate Anesthetic Complications: no major complications apparent and Pt Satisfied with anesthetic care Notes: HR mildly elevated compared to recorded HR on floor. Pt is afebrile at this time. Ok to go to the floor. Nursing team instructed to watch closely for fever, hypotension or any other signs of developing sepsis.
[2018-12-02] MEDS ORDERED: MAGNESIUM HYDROXIDE SUSP 30 ML UDC PO PRN (17:20)
[2018-12-02] MEDS ORDERED: bisacodyL 10 MG SUPP PR PRN (17:20)
[2018-12-02] MEDS ORDERED: NALOXONE HCL 0.4 MG/1 ML VIAL/CARP IV PRN (17:20)
[2018-12-02] MEDS: SODIUM CHLORIDE 0.9% 1000ML 1,000 ML IV SCH (17:35)
[2018-12-02] MEDS: CHECK SCOPOLAMINE PATCH PLACEMENT SCH (18:40)
[2018-12-02] MEDS: TRAZODONE HCL 50 MG TAB PO SCH (20:27)
[2018-12-02] MEDS: DOCUSATE SODIUM 100 MG CAP PO SCH (20:28)
[2018-12-02] MEDS: AMITRIPTYLINE HCL 50 MG TAB PO SCH (20:28)
[2018-12-02] MEDS: SENNA 8.6 MG TAB PO SCH (20:28)
[2018-12-02] MEDS: DAPTOmycin 475 MG in SYRINGE 0 ML IV SCH (20:36)
[2018-12-03] MEDS: OXYCODONE/ACETAMINOPHEN 5mg/325mg TAB PO PRN ×3 (01:23→23:43)
[2018-12-03] MEDS: SODIUM CHLORIDE 0.9% 1000ML 1,000 ML IV SCH (03:12)
[2018-12-03 05:59] LABS: Basophils # (auto) 0.05 K/uL (0-0.2); Basophils % (auto) 0.2 %; Eosinophils # (auto) 0.25 K/uL (0-0.5); Eosinophils % (auto) 1.2 %; Hematocrit (blood only) 25.6 % (37-47); Hemoglobin 8.2 g/dL (12.0-16.0); Immature Granulocytes # (auto) 0.09 K/uL (0.00-0.02); Immature Granulocytes % (auto) 0.4 %; Lymphocytes # (auto) 2.18 K/uL (1.2-3.4); Lymphocytes % (auto) 10.4 %; Mean Corpuscular Hemoglobin 28.3 pg (25-34); Mean Corpuscular Volume 88.3 fL (80-100); Mean Platelet Volume 8.9 fL (7.4-10.4); Monocytes # (auto) 1.31 K/uL (0.11-0.59); Monocytes % (auto) 6.3 %; Neutrophils % (auto) 81.5 %; Platelet Count 227 K/uL (130-400); RDW Coefficient of Variation 15.3 % (11.5-14.5); RDW Standard Deviation 49.3 fL (36.4-46.3); White Blood Count 20.88 K/uL (4.8-10.8)
[2018-12-03] MEDS: PIPERACILLIN/TAZOBACTAM 3.375 GM in DEXTROSE 5% 100 ML IV SCH ×3 (06:25→21:12)
[2018-12-03 06:28] LABS: Albumin Level 2.3 gm/dl (3.4-5.0); BUN Creatinine Ratio 15.7 (10-20); Calcium 8.5 mg/dl (8.5-10.1); Creatinine Clr Calc Pharmacy 53.9 ml/min; Est GFR (African American) 49.9; Potassium 3.1 mmol/L (3.5-5.1)
[2018-12-03 06:37] LABS: Albumin Globulin Ratio 0.6 (0.9-2); Bilirubin,Total 1.3 mg/dl (0.2-1); Globulin 3.7 gm/dl (2.5-4.0)
[2018-12-03] MEDS ORDERED: SODIUM CHLORIDE 0.9% 250 ML IV PRN (07:12)
--- NOTE | 2018-12-03 07:19 | Orthopedic Progress Note ---
Date of Service December 03, 2018 Assessment & Plan (1) Post op infection: Right now we are currently awaiting cultures to come back. So far the blood cultures have been negative. We are still waiting for superficial and deep intraoperative wound cultures. Right now we will continue the vancomycin and Zosyn. She is on aspirin for DVT prophylaxis. I am going to transfuse her 1 unit of packed red blood cells today. I started her on Dilaudid for her pain control as well. Right now just awaiting final cultures and final infectious disease recommendations. Present on Admission?: Yes Subjective Gay was seen and examined at bedside this morning. Unfortunately she is having a lot of pain in the left knee. She said she try to get up and stand on it yesterday and she had trouble ambulating to the bathroom. She denies any nausea. She was able to get some sleep last night. She has no other complaints. Physical Exam Musculoskeletal: On physical examination of the left knee, the legs out in full extension. She has a knee immobilizer in place. She is active dorsiflexion and plantarflexion of her left ankle. Her left foot and ankle are warm. There is ice on her left knee. Results & Data Vital Signs (Past 12 Hours) Vital Signs Temp Pulse Resp BP BP Pulse Ox 12/03/18 03:09 37.2 C 88 16 100/62 92 12/03/18 00:00 80 16 107/66 93 12/02/18 23:19 37.1 C 85 16 96/59 L 92 12/02/18 20:22 36.7 C 98 H 18 102/55 L 96 12/02/18 19:19 36.8 C 107 H 18 121/69 93 Laboratory Results Microbiology 12/01/18 14:45 Aerobic Blood Culture - Preliminary Blood No growth in Aerobic bottle after 24 hours. Anaerobic Blood Culture - Preliminary No growth in Anaerobic bottle after 24 hours. 12/01/18 14:45 Aerobic Blood Culture - Preliminary Blood No growth in Aerobic bottle after 24 hours. Anaerobic Blood Culture - Preliminary No growth in Anaerobic bottle after 24 hours. H & H 12/01/18 12/02/18 12/03/18 Range/Units 14:00 05:03 05:39 Hgb 12.1 10.6 L 8.2 L (12.0-16.0) g/dL Hct 36.5 L 32.1 L 25.6 L (37-47) % Coagulation 12/01/18 Range/Units 14:00 INR 1.1 (0.9-1.1) PG Care Time/CCT Total # of Minutes Spent Total Time Spent with Patient: Total time spent is greater than 50% in coordination of care (as documented) at patient's floor/unit and/or counseling patient:
[2018-12-03] MEDS: HYDROmorphone INJ 0.5 MG/0.5 ML SYR IV PRN ×3 (08:25→21:31)
[2018-12-03] MEDS: CHECK SCOPOLAMINE PATCH PLACEMENT SCH ×5 (08:26→23:43)
[2018-12-03] MEDS: LOSARTAN POTASSIUM 25 MG TAB PO SCH (08:27)
[2018-12-03] MEDS: FAMOTIDINE 20 MG in SYRINGE 3 ML IV SCH (08:27)
[2018-12-03] MEDS: VERAPAMIL HCL 120 MG TABCR PO SCH (08:28)
[2018-12-03] MEDS: DOCUSATE SODIUM 100 MG CAP PO SCH ×2 (08:28→21:11)
[2018-12-03] MEDS: ASPIRIN 81 MG ECTAB PO SCH ×2 (08:28→21:13)
[2018-12-03] MEDS: hydroCHLOROthiazide 25 MG TAB PO SCH (08:28)
[2018-12-03] MEDS: CEROVITE ADV FORMULA TAB PO SCH (08:29)
[2018-12-03] MEDS: lamoTRIgine 100 MG TAB PO SCH ×2 (08:29→21:13)
[2018-12-03] MEDS: CITALOPRAM 40 MG TAB PO SCH (08:29)
[2018-12-03] MEDS: MULTIVITAMIN TAB PO SCH (08:29)
[2018-12-03] MEDS ORDERED: POTASSIUM CHLORIDE 20 MEQ TABCR PO SCH (09:00)
[2018-12-03] MEDS: ONDANSETRON INJ 2 MG/ML 2 ML VIAL IV PRN ×2 (12:32→21:32)
--- NOTE | 2018-12-03 14:20 | Infectious Disease Progress Nt ---
Date of Service December 03, 2018 Assessment & Plan (1) Post op infection: pt will continue on emperic abx for now. following OR culture, gpc growing. follow culture results. will likely need 6 week IV abx post d/c. further abx will depend on culture results. Subjective post op poly exchange, tolerated well. blood cultures remain negative, OR cultures gpc growing, additional micro pending. afebrile. remains on zosyn and dapto. toleraitng well. wbc slightly improved to 20. creat 1.3 Results & Data Vital Signs (Past 12 Hours) Vital Signs Temp Pulse Pulse Resp BP BP Pulse Ox 12/03/18 13:07 37 C 97 H 16 110/54 L 92 12/03/18 12:52 37.1 C 91 H 18 103/68 92 12/03/18 11:52 37.2 C 93 H 18 109/63 93 12/03/18 11:22 37.1 C 92 H 18 102/47 L 95 12/03/18 11:07 37.1 C 92 H 18 92/43 L 93 12/03/18 10:50 37.1 C 92 H 18 107/64 93 12/03/18 03:09 37.2 C 88 16 100/62 92 Laboratory Results Microbiology 12/02/18 15:13 Knee,Left Gram Stain - Final 12/02/18 15:13 Knee,Left Aerobic and Anaerobic Culture - Preliminary Gram positive cocci 12/02/18 15:10 Knee,Left Gram Stain - Final 12/02/18 15:10 Knee,Left Aerobic and Anaerobic Culture - Preliminary No growth to date. 12/01/18 14:45 Blood Aerobic Blood Culture - Preliminary No growth in Aerobic bottle after 24 hours. 12/01/18 14:45 Blood Anaerobic Blood Culture - Preliminary No growth in Anaerobic bottle after 24 hours. 12/01/18 14:45 Blood Aerobic Blood Culture - Preliminary No growth in Aerobic bottle after 24 hours. 12/01/18 14:45 Blood Anaerobic Blood Culture - Preliminary No growth in Anaerobic bottle after 24 hours. PG Care Time/CCT Total # of Minutes Spent Total Time Spent with Patient: Total time spent is greater than 50% in coordination of care (as documented) at patient's floor/unit and/or counseling patient:
--- NOTE | 2018-12-03 14:20 | Hospitalist Progress Note ---
Date of Service December 03, 2018 Assessment & Plan (1) Septic arthritis of knee, left: s/p TKA by Dr. Hagan a few weeks ago presented with WBC of 22k, pain in left knee, purulent drainage continue treatment with Daptomycin, could likely d/c Zosyn, defer to ID blood cultures no growth taken for washout, antibiotic spacer on 12/02, tolerated well wound cultures growing gram positive cocci, follow up final result (2) Post op infection: see above wound culture with gram positive cocci (3) Sepsis: sepsis due to septic TKA on the left vitals stable, no fever WBC down slightly to 20k, repeat tomorrow no growth on blood cultures (4) Cellulitis of left knee: As above (5) Leukocytosis: going down, due to septic joint (6) Hypokalemia: Chronic issue, K is 3.2 she has a difficult time tolerating PO supplements will hold for now, give IV tomorrow if needed (7) Hypertension: BP is low normal stop HCTZ given her chronic low potassium, may not need this medication continue Losartan, Verapamil (8) Hx of sarcoidosis: Currently stable no issues (9) Depression: Currently stable. Continue amitriptyline 50 mg p.o. nightly, continue citalopram 40 mg p.o. every morning, continue trazodone 150 mg p.o. every morning (10) Bipolar 1 disorder, depressed: See above, continue lamotrigine 100 mg p.o. twice daily (11) Seasonal allergies: Continue fluticasone propionate 50 MCG's spray 1 spray intranasal daily as needed for sneezing and allergy symptoms Subjective patient doing well this morning c/o pain in left knee and weakness in the leg, having a difficult time moving the leg no chest pain, no dyspnea, no fever/chills vitals reviewed and stable she has some abdominal discomfort that she attributes to her potassium pills this AM, had a similar reaction outpatient reviewed labs, WBC down slightly at 20k, Hb is 8.2 Cr is 1.3, electrolytes stable reviewed OR report from yesterday wound cultures growing gram positive cocci blood cultures with no growth Review of Systems Review of Systems: All systems reviewed & are unremarkable except as noted in HPI & below Constitutional: + fatigue and + weakness; no fever, no chills and no sweats Respiratory: no cough and no dyspnea Cardiovascular: no chest pain Gastrointestinal: + abdominal pain (cramping, discomfort) and + diarrhea/loose stools (normal for her); no nausea, no vomiting and no constipation Musculoskeletal: + joint pain (left knee) Physical Exam Constitutional: WD/WN, vitals as above + obese Eyes: PERRL, conjunctivae normal, anicteric sclerae ENMT: external ear and nose normal, oropharynx normal Neck: trachea midline, no thyromegaly Respiratory: normal respiratory effort, lungs clear to auscultation Cardiovascular: RRR, no murmur, no edema Gastrointestinal (Abdomen): Inspection/Auscultation: abdomen normal to inspection; abdomen not distended Percussion/Palpation: + abdomen tender (mild in epigastric region) and abdomen soft; no guarding and no hepatosplenomegaly Musculoskeletal: Head/Neck/Chest: normocephalic and head atraumatic Extremities: + limited ROM of extremities (left knee) and + abnormal strength (left leg is weak); + extremities abnormal to inspection (left knee immobilized) Skin: no rashes, warm and dry Neurologic: patellar DTR's 2+ bilat, sensation intact and PERRL, EOMI, accommodation nl, no face palsy, no dysarthria Psychiatric: A+Ox3, euthymic affect Lymphatic: no cervical or axillary lymphadenopathy Results & Data Vital Signs (Past 12 Hours) Vital Signs Temp Pulse Pulse Resp BP BP Pulse Ox 12/03/18 13:07 37 C 97 H 16 110/54 L 92 12/03/18 12:52 37.1 C 91 H 18 103/68 92 12/03/18 11:52 37.2 C 93 H 18 109/63 93 12/03/18 11:22 37.1 C 92 H 18 102/47 L 95 12/03/18 11:07 37.1 C 92 H 18 92/43 L 93 12/03/18 10:50 37.1 C 92 H 18 107/64 93 12/03/18 03:09 37.2 C 88 16 100/62 92 Laboratory Results Laboratory Results - last 24 hr 12/03/18 12/03/18 12/03/18 05:39 05:39 07:20 WBC 20.88 H RBC 2.90 L Hgb 8.2 L Hct 25.6 L MCV 88.3 MCH 28.3 MCHC 32.0 RDW Std Deviation 49.3 H RDW Coeff of [place] 15.3 H Plt Count 227 MPV 8.9 Immature Gran % (Auto) 0.4 Neut % (Auto) 81.5 Lymph % (Auto) 10.4 [place] % (Auto) 6.3 Eos % (Auto) 1.2 Baso % (Auto) 0.2 Immature Gran # (Auto) 0.09 H Neut # (Auto) 17.00 H Lymph # (Auto) 2.18 [place] # (Auto) 1.31 H Eos # (Auto) 0.25 Baso # (Auto) 0.05 Sodium 136 Potassium 3.1 L Chloride 100 Carbon Dioxide 30 Anion Gap 6.0 BUN 20 H Creatinine 1.30 H Est Cr Clr Drug Dosing 53.9 Est GFR ( Amer) 49.9 Est GFR (Non-Af Amer) 43.0 BUN/Creatinine Ratio 15.7 Glucose 119 H Calcium 8.5 Total Bilirubin 1.3 H AST 17 ALT 20 Alkaline Phosphatase 106 Total Protein 6.0 L Albumin 2.3 L Globulin 3.7 Albumin/Globulin Ratio 0.6 L Blood Type O Negative Antibody Screen NEGATIVE Crossmatch See Detail Microbiology 12/02/18 15:13 Knee,Left Gram Stain - Final 12/02/18 15:13 Knee,Left Aerobic and Anaerobic Culture - Preliminary Gram positive cocci 12/02/18 15:10 Knee,Left Gram Stain - Final 12/02/18 15:10 Knee,Left Aerobic and Anaerobic Culture - Preliminary No growth to date. 12/01/18 14:45 Blood Aerobic Blood Culture - Preliminary No growth in Aerobic bottle after 24 hours. 12/01/18 14:45 Blood Anaerobic Blood Culture - Preliminary No growth in Anaerobic bottle after 24 hours. 12/01/18 14:45 Blood Aerobic Blood Culture - Preliminary No growth in Aerobic bottle after 24 hours. 12/01/18 14:45 Blood Anaerobic Blood Culture - Preliminary No growth in Anaerobic bottle after 24 hours. Medications Administered Current Inpatient Medications Amitriptyline HCl (Elavil) 50 mg PO HS [facility] Stop: 12/31/18 20:59 Last Admin: 12/02/18 20:28 Dose: 50 mg Documented by: Aspirin (Ecotrin Ectab) 81 mg PO BID [facility] Stop: 12/31/18 20:59 Last Admin: 12/03/18 08:28 Dose: 81 mg Documented by: Bisacodyl (Dulcolax) 10 mg ID DAILY PRN PRN Reason: Constipation Stop: 01/01/19 17:19 [facility]italop[facility] ([facility]lex[facility]) [facility] [place]: 01/01/19 08:59 Last Admin: 12/03/18 08:29 Dose: 40 mg Documented by: Docusate Sodium (Colace) 100 mg PO BID [facility] Stop: 01/01/19 20:59 Last Admin: 12/03/18 08:28 Dose: Not Given Documented by: Famotidine (Pepcid) 20 mg PO DAILY [facility] Stop: 01/03/19 08:59 Fluticasone Propionate (Flonase) 1 sprays NA DAILY PRN PRN Reason: Congestion Stop: 12/31/18 19:08 Heparin Sodium (Porcine) (Heparin Sod 100 Unit/Ml Flush) 5 ml FLUSH PRN PRN PRN Reason: Flush Stop: 01/01/19 01:44 Hydralazine HCl (Apresoline) 10 mg PO TID PRN PRN Reason: high blood pressure Stop: 12/31/18 20:59 Last Admin: 12/02/18 07:47 Dose: 10 mg Documented by: Hydrochlorothiazide (Hctz) [facility] [place]: 01/01/19 08:59 Last Admin: 12/03/18 08:28 Dose: 25 mg Documented by: Hydromorphone HCl (Dilaudid) 0.5 mg IV Q2H PRN PRN Reason: Pain Stop: 12/17/18 07:12 Last Admin: 12/03/18 08:25 Dose: 0.5 mg Documented by: Piperacillin Sod/Tazobactam (Sod 3.375 gm/ Dextrose) 115 mls @ 28.75 mls/hr IV Q8H [facility]; Protocol Stop: 12/11/18 20:59 Last Admin: 12/03/18 13:07 Dose: 28.8 mls/hr Documented by: Daptomycin 475 mg/ Syringe 9.5 mls @ 3.25 mls/min IV DAILY@2100 [facility]; Protocol Stop: 12/11/18 20:59 Last Admin: 12/02/18 20:36 Dose: 3.25 mls/min Documented by: Sodium Chloride (Nss) 250 mls @ 15 mls/hr IV .[id number] PRN PRN Reason: For Transfusion Stop: 12/03/18 23:59 Lamotrigine (Lamictal) 100 mg PO BID [facility] Stop: 12/31/18 20:59 Last Admin: 12/03/18 08:29 Dose: 100 mg Documented by: Losartan Potassium (Cozaar) 25 mg PO QAM [facility] Stop: 01/01/19 08:59 Last Admin: 12/03/18 08:27 Dose: 25 mg Documented by: Magnesium Hydroxide (Milk Of Magnesia) 30 ml PO Q6H PRN PRN Reason: Constipation Stop: 01/01/19 17:19 Metoclopramide HCl (Reglan) 10 mg IV Q6H PRN PRN Reason: Nausea/Vomiting Stop: 12/31/18 19:08 Last Admin: 12/02/18 07:56 Dose: 10 mg Documented by: Miscellaneous (Check Scopolamine Patch Placement) 1 ea N/A QS [facility] Stop: 01/01/19 15:59 Last Admin: 12/03/18 08:42 Dose: 1 ea Documented by: Miscellaneous (Remove Transderm-Scop Patch) 1 ea N/A Q72H [facility] Stop: 01/04/19 13:44 Miscellaneous Information (Consult) 1 ea N/A UD PRN PRN Reason: Consult Stop: 12/31/18 12:40 Multivitamins (Multivitamin Tab) 1 tab PO QAM [facility] Stop: 01/02/19 08:59 Last Admin: 12/03/18 08:29 Dose: 1 tab Documented by: Multivitamins/Minerals (Multivitamin W/ Minerals Tab) 1 tab PO QAM [facility] Stop: 01/01/19 08:59 Last Admin: 12/03/18 08:29 Dose: 1 tab Documented by: Naloxone HCl (Narcan) 0.1 mg IV Q5M PRN PRN Reason: Oversedation/Resp Depression Stop: 01/01/19 17:19 Ondansetron HCl (Zofran) 4 mg IV Q6H PRN PRN Reason: Nausea/Vomiting Stop: 12/31/18 19:08 Last Admin: 12/03/18 12:32 Dose: 4 mg Documented by: Oxycodone/Acetaminophen (Percocet 5mg/325mg) 1 - 2 tab PO Q4H PRN PRN Reason: Pain Stop: 12/15/18 19:08 Last Admin: 12/03/18 06:25 Dose: 2 tab Documented by: Ranitidine HCl (Zantac) 300 mg PO [facility] Stop: 12/31/18 20:59 Last Admin: 12/02/18 20:28 Dose: 300 mg Documented by: Sennosides (Senokot) 17.2 mg PO HS [facility] Stop: 01/01/19 20:59 Last Admin: 12/02/18 20:28 Dose: Not Given Documented by: Trazodone HCl (Desyrel) 150 mg PO HS [facility] Stop: 12/31/18 20:59 Last Admin: 12/02/18 20:27 Dose: 150 mg Documented by: Verapamil HCl (Calan Sr) 120 mg PO [facility] Stop: 01/01/19 08:59 Last Admin: 12/03/18 08:28 Dose: 120 mg Documented by: PG Care Time/CCT Total # of Minutes Spent Total Time Spent with Patient: Total time spent is greater than 50% in coordination of care (as documented) at patient's floor/unit and/or counseling patient: (1) Sepsis Sepsis acute organ dysfunction status: unspecified Sepsis type: sepsis due to unspecified organism Qualified Code(s): A41.9 - Sepsis, unspecified organism (2) Leukocytosis Leukocytosis type: unspecified Qualified Code(s): D72.829 - Elevated white blood cell count, unspecified
[2018-12-03] MEDS: HEPARIN 100 UNIT/ML 5ML FLUSH FLUSH PRN (17:19)
[2018-12-03] MEDS: SENNA 8.6 MG TAB PO SCH (21:11)
[2018-12-03] MEDS: TRAZODONE HCL 50 MG TAB PO SCH (21:12)
[2018-12-03] MEDS: DAPTOmycin 475 MG in SYRINGE 0 ML IV SCH (21:12)
[2018-12-03] MEDS: AMITRIPTYLINE HCL 50 MG TAB PO SCH (21:13)
[2018-12-04] MEDS: HEPARIN 100 UNIT/ML 5ML FLUSH FLUSH PRN ×3 (01:36→17:42)
[2018-12-04] MEDS: PIPERACILLIN/TAZOBACTAM 3.375 GM in DEXTROSE 5% 100 ML IV SCH ×3 (04:29→21:13)
[2018-12-04 06:13] LABS: Basophils # (auto) 0.04 K/uL (0-0.2); Basophils % (auto) 0.3 %; Eosinophils # (auto) 0.64 K/uL (0-0.5); Hematocrit (blood only) 26.9 % (37-47); Hemoglobin 8.7 g/dL (12.0-16.0); Immature Granulocytes # (auto) 0.04 K/uL (0.00-0.02); Immature Granulocytes % (auto) 0.3 %; Lymphocytes # (auto) 2.12 K/uL (1.2-3.4); Lymphocytes % (auto) 16.7 %; Mean Corpuscular Hemoglobin 28.5 pg (25-34); Mean Corpuscular Hgb Conc 32.3 g/dL (32-36); Mean Corpuscular Volume 88.2 fL (80-100); Mean Platelet Volume 9.1 fL (7.4-10.4); Monocytes # (auto) 0.92 K/uL (0.11-0.59); Monocytes % (auto) 7.2 %; Neutrophils # (auto) 8.96 K/uL (1.4-6.5); Neutrophils % (auto) 70.5 %; Platelet Count 250 K/uL (130-400); RDW Coefficient of Variation 15.3 % (11.5-14.5); RDW Standard Deviation 49.2 fL (36.4-46.3); Red Blood Count 3.05 M/uL (4.2-5.4); White Blood Count 12.72 K/uL (4.8-10.8)
[2018-12-04] MEDS: METOCLOPRAMIDE HCL INJ 5 MG/ML 2 ML VIAL IV PRN ×3 (06:40→21:00)
[2018-12-04 06:48] LABS: Albumin Level 2.2 gm/dl (3.4-5.0); Calcium 8.9 mg/dl (8.5-10.1); Creatinine Clr Calc Pharmacy 57.5 ml/min; Est GFR (African American) 53.8; Est GFR (Non-African American) 46.5; Potassium 3.2 mmol/L (3.5-5.1)
[2018-12-04 06:51] LABS: Albumin Globulin Ratio 0.5 (0.9-2); Bilirubin,Total 1.1 mg/dl (0.2-1); Globulin 4.2 gm/dl (2.5-4.0); Total Protein 6.4 gm/dl (6.4-8.2)
--- NOTE | 2018-12-04 07:37 | Orthopedic Progress Note ---
Date of Service December 04, 2018 Assessment & Plan (1) Post op infection: We will continue the IV Zosyn and vancomycin for now. So far the cultures have only grown out some gram-positive cocci. I did consent for PICC line today. I want to leave the dressing intact for now. I plan the pull the drains tomorrow and likely discharge her to home. Present on Admission?: Yes Subjective Gay was seen and examined at bedside this morning. Overall she is doing okay. She has a little bit of nausea which she thinks is from the antibiotics. Her knee pain is a little bit better today. She says the dressing is a little bit tight and uncomfortable. She has no other complaints. Physical Exam Musculoskeletal: On physical examination of the left leg, the dressing is clean and dry. Her legs out in full extension with the knee immobilizer. She has active dorsiflexion and plantarflexion of her left ankle. Her left foot and ankle is warm to touch. Results & Data Vital Signs (Past 12 Hours) Vital Signs Temp Pulse Resp BP BP Pulse Ox 12/04/18 06:34 113 H 119/53 L 12/03/18 23:38 37.2 C 96 H 16 110/66 92 Laboratory Results H & H 12/01/18 12/02/18 12/03/18 Range/Units 14:00 05:03 05:39 Hgb 12.1 10.6 L 8.2 L (12.0-16.0) g/dL Hct 36.5 L 32.1 L 25.6 L (37-47) % 12/04/18 Range/Units 05:44 Hgb 8.7 L (12.0-16.0) g/dL Hct 26.9 L (37-47) % Coagulation 12/01/18 Range/Units 14:00 INR 1.1 (0.9-1.1) Microbiology 12/01/18 14:45 Aerobic Blood Culture - Preliminary Blood No growth in Aerobic bottle after 48 hours. Anaerobic Blood Culture - Preliminary No growth in Anaerobic bottle after 48 hours. 12/01/18 14:45 Aerobic Blood Culture - Preliminary Blood No growth in Aerobic bottle after 48 hours. Anaerobic Blood Culture - Preliminary No growth in Anaerobic bottle after 48 hours. 12/02/18 15:13 Gram Stain - Final Knee,Left Aerobic and Anaerobic Culture - Preliminary Gram positive cocci 12/02/18 15:10 Gram Stain - Final Knee,Left Aerobic and Anaerobic Culture - Preliminary No growth to date. PG Care Time/CCT Total # of Minutes Spent Total Time Spent with Patient: Total time spent is greater than 50% in coordination of care (as documented) at patient's floor/unit and/or counseling patient:
[2018-12-04] MEDS: POTASSIUM CHLORIDE / WTR 10 MEQ/100 ML PLCT IV SCH ×2 (08:32→09:38)
[2018-12-04] MEDS: CHECK SCOPOLAMINE PATCH PLACEMENT SCH ×2 (08:33→15:22)
[2018-12-04] MEDS: LOSARTAN POTASSIUM 25 MG TAB PO SCH (08:35)
[2018-12-04] MEDS: lamoTRIgine 100 MG TAB PO SCH ×2 (08:36→21:11)
[2018-12-04] MEDS: CEROVITE ADV FORMULA TAB PO SCH (08:36)
[2018-12-04] MEDS: MULTIVITAMIN TAB PO SCH (08:36)
[2018-12-04] MEDS: CITALOPRAM 40 MG TAB PO SCH (08:36)
[2018-12-04] MEDS: FAMOTIDINE 20 MG TAB PO SCH (08:36)
[2018-12-04] MEDS: VERAPAMIL HCL 120 MG TABCR PO SCH (08:36)
[2018-12-04] MEDS: ASPIRIN 81 MG ECTAB PO SCH ×2 (08:36→21:10)
[2018-12-04] MEDS: DOCUSATE SODIUM 100 MG CAP PO SCH ×2 (08:36→21:09)
[2018-12-04] MEDS: OXYCODONE/ACETAMINOPHEN 5mg/325mg TAB PO PRN (09:41)
--- NOTE | 2018-12-04 13:48 | Infectious Disease Progress Nt ---
Date of Service December 04, 2018 Assessment & Plan (1) Post op infection: pt will continue on emperic abx for now. following OR culture, gpc growing. follow culture results. will likely need 6 week IV abx post d/c. further abx will depend on culture results. Subjective OR cultures growing GFS and [employer], awaiting final sensitivities for strep. tolerating abx, afebrile. wbc improved to 12. for picc. blood cultures remain negative. Results & Data Vital Signs (Past 12 Hours) Vital Signs Temp Pulse Resp BP BP Pulse Ox 12/04/18 07:54 36.9 C 88 18 104/55 L 91 12/04/18 06:34 113 H 119/53 L Laboratory Results Microbiology 12/02/18 15:13 Knee,Left Gram Stain - Final 12/02/18 15:13 Knee,Left Aerobic and Anaerobic Culture - Preliminary Coag negative Staphylococcus Group F Beta Strep 12/01/18 14:45 Blood Aerobic Blood Culture - Preliminary No growth in Aerobic bottle after 48 hours. 12/01/18 14:45 Blood Anaerobic Blood Culture - Preliminary No growth in Anaerobic bottle after 48 hours. 12/01/18 14:45 Blood Aerobic Blood Culture - Preliminary No growth in Aerobic bottle after 48 hours. 12/01/18 14:45 Blood Anaerobic Blood Culture - Preliminary No growth in Anaerobic bottle after 48 hours. 12/02/18 15:10 Knee,Left Gram Stain - Final 12/02/18 15:10 Knee,Left Aerobic and Anaerobic Culture - Preliminary No growth to date. PG Care Time/CCT Total # of Minutes Spent Total Time Spent with Patient: Total time spent is greater than 50% in coordination of care (as documented) at patient's floor/unit and/or counseling patient:
--- NOTE | 2018-12-04 14:45 | Hospitalist Progress Note ---
Date of Service December 04, 2018 Assessment & Plan (1) Septic arthritis of knee, left: s/p TKA by Dr. Hagan a few weeks ago presented with WBC of 22k, pain in left knee, purulent drainage continue treatment with Daptomycin, could likely d/c Zosyn, defer to ID blood cultures no growth taken for washout, antibiotic spacer on 12/02, tolerated well wound cultures growing coag negative staph, Group F beta strep ID recommending 6 weeks of IV antibiotics, they will determine what medication tomorrow (2) Post op infection: see above wound culture with coag neg staph, group F beta strep (3) Sepsis: sepsis due to septic TKA on the left vitals stable, no fever WBC down to 12k, repeat tomorrow no growth on blood cultures (4) Cellulitis of left knee: As above (5) Leukocytosis: going down, due to septic joint (6) Hypokalemia: Chronic issue, K is 3.2 again today she has a difficult time tolerating PO supplements given IV replacement today could be medication related, stop HCTZ can increase Losartan if hypertensive which raises K (7) Hypertension: BP is low normal stop HCTZ given her chronic low potassium, may not need this medication will also stop Verapamil if hypertensive then would increase Losartan to 50 since it could also help correct K (8) Hx of sarcoidosis: Currently stable no issues (9) Depression: Currently stable. Continue amitriptyline 50 mg p.o. nightly, continue citalopram 40 mg p.o. every morning, continue trazodone 150 mg p.o. every morning (10) Bipolar 1 disorder, depressed: See above, continue lamotrigine 100 mg p.o. twice daily (11) Seasonal allergies: Continue fluticasone propionate 50 MCG's spray 1 spray intranasal daily as needed for sneezing and allergy symptoms Subjective patient says her left knee feels better today, less pain she was able to walk in the [address] reviewed labs, WBC down to 12k, Hb is 8.7, up from 8.2 K a little low at 3.2, Cr stable at 1.22 discussed medications, low K, HTN she is agreeable to stopping Verapamil, going up on Losartan if needed Review of Systems Review of Systems: All systems reviewed & are unremarkable except as noted in HPI & below Respiratory: no cough and no dyspnea Cardiovascular: no chest pain and no edema Gastrointestinal: + abdominal pain (mild, diffuse) and + diarrhea/loose stools (normal for her); no nausea, no vomiting and no constipation Musculoskeletal: + joint pain (left knee) Physical Exam Constitutional: WD/WN, vitals as above + obese Eyes: PERRL, conjunctivae normal, anicteric sclerae ENMT: external ear and nose normal, oropharynx normal Neck: trachea midline, no thyromegaly Respiratory: normal respiratory effort, lungs clear to auscultation Cardiovascular: RRR, no murmur, no edema Gastrointestinal (Abdomen): Inspection/Auscultation: abdomen normal to inspection; abdomen not distended Percussion/Palpation: + abdomen tender (mild in epigastric region) and abdomen soft; no guarding and no hepatosplenomegaly Musculoskeletal: Head/Neck/Chest: normocephalic and head atraumatic E xtremities: + limited ROM of extremities (left knee) and + abnormal strength (left leg is weak); + extremities abnormal to inspection (left knee immobilized) Skin: no rashes, warm and dry Neurologic: patellar DTR's 2+ bilat, sensation intact and PERRL, EOMI, accommodation nl, no face palsy, no dysarthria Psychiatric: A+Ox3, euthymic affect Lymphatic: no cervical or axillary lymphadenopathy Results & Data Vital Signs (Past 12 Hours) Vital Signs Temp Pulse Resp BP BP Pulse Ox 12/04/18 07:54 36.9 C 88 18 104/55 L 91 12/04/18 06:34 113 H 119/53 L Laboratory Results Laboratory Results - last 24 hr 12/04/18 12/04/18 05:44 05:44 WBC 12.72 H RBC 3.05 L Hgb 8.7 L Hct 26.9 L MCV 88.2 MCH 28.5 MCHC 32.3 RDW Std Deviation 49.2 H RDW Coeff of [place] 15.3 H Plt Count 250 MPV 9.1 Immature Gran % (Auto) 0.3 Neut % (Auto) 70.5 Lymph % (Auto) 16.7 [place] % (Auto) 7.2 Eos % (Auto) 5.0 Baso % (Auto) 0.3 Immature Gran # (Auto) 0.04 H Neut # (Auto) 8.96 H Lymph # (Auto) 2.12 [place] # (Auto) 0.92 H Eos # (Auto) 0.64 H Baso # (Auto) 0.04 Sodium 137 Potassium 3.2 L Chloride 100 Carbon Dioxide 30 Anion Gap 7.0 BUN 18 Creatinine 1.22 H Est Cr Clr Drug Dosing 57.5 Est GFR ( Amer) 53.8 Est GFR (Non-Af Amer) 46.5 BUN/Creatinine Ratio 15.0 Glucose 109 H Calcium 8.9 Total Bilirubin 1.1 H AST 16 ALT 18 Alkaline Phosphatase 117 Total Protein 6.4 Albumin 2.2 L Globulin 4.2 H Albumin/Globulin Ratio 0.5 L Medications Administered Current Inpatient Medications Amitriptyline HCl (Elavil) 50 mg PO HS [facility] Stop: 12/31/18 20:59 Last Admin: 12/03/18 21:13 Dose: 50 mg Documented by: Aspirin (Ecotrin Ectab) 81 mg PO BID [facility] Stop: 12/31/18 20:59 Last Admin: 12/04/18 08:36 Dose: 81 mg Documented by: Bisacodyl (Dulcolax) 10 mg [place] DAILY PRN PRN Reason: Constipation Stop: 01/01/19 17:19 Citalopram Hydrobromide (Celexa) 40 mg PO QAM [facility] Stop: 01/01/19 08:59 Last Admin: 12/04/18 08:36 Dose: 40 mg Documented by: Docusate Sodium (Colace) 100 mg PO BID [facility] Stop: 01/01/19 20:59 Last Admin: 12/04/18 08:36 Dose: Not Given Documented by: Famotidine (Pepcid) 20 mg PO DAILY [facility] Stop: 01/03/19 08:59 Last Admin: 12/04/18 08:36 Dose: 20 mg Documented by: Fluticasone Propionate (Flonase) 1 sprays NA DAILY PRN PRN Reason: Congestion Stop: 12/31/18 19:08 Heparin Sodium (Porcine) (Heparin Sod 100 Unit/Ml Flush) 5 ml FLUSH PRN PRN PRN Reason: Flush Stop: 01/01/19 01:44 Last Admin: 12/04/18 10:46 Dose: 5 ml Documented by: Hydralazine HCl (Apresoline) 10 mg PO TID PRN PRN Reason: high blood pressure Stop: 12/31/18 20:59 Last Admin: 12/02/18 07:47 Dose: 10 mg Documented by: Hydromorphone HCl (Dilaudid) 0.5 mg IV Q2H PRN PRN Reason: Pain Stop: 12/17/18 07:12 Last Admin: 12/03/18 21:31 Dose: 0.5 mg Documented by: Piperacillin Sod/Tazobactam (Sod 3.375 gm/ Dextrose) 115 mls @ 28.75 mls/hr IV Q8H [facility]; Protocol Stop: 12/11/18 20:59 Last Admin: 12/04/18 14:08 Dose: 28.8 mls/hr Documented by: Daptomycin 475 mg/ Syringe 9.5 mls @ 3.25 mls/min IV DAILY@2100 [facility]; Protocol Stop: 12/11/18 20:59 Last Admin: 12/03/18 21:12 Dose: 3.25 mls/min Documented by: Lamotrigine (Lamictal) 100 mg PO BID [facility] Stop: 12/31/18 20:59 Last Admin: 12/04/18 08:36 Dose: 100 mg Documented by: Losartan Potassium (Cozaar) 25 mg PO QAM [facility] Stop: 01/01/19 08:59 Last Admin: 12/04/18 08:35 Dose: 25 mg Documented by: Magnesium Hydroxide (Milk Of Magnesia) 30 ml PO Q6H PRN PRN Reason: Constipation Stop: 01/01/19 17:19 Metoclopramide HCl (Reglan) 10 mg IV Q6H PRN PRN Reason: Nausea/Vomiting Stop: 12/31/18 19:08 Last Admin: 12/04/18 14:03 Dose: 10 mg Documented by: Miscellaneous (Check Scopolamine Patch Placement) 1 ea N/A QS [facility] Stop: 01/01/19 15:59 Last Admin: 12/04/18 08:33 Dose: 1 ea Documented by: Miscellaneous (Remove Transderm-Scop Patch) 1 ea N/A Q72H [facility] Stop: 01/04/19 13:44 Miscellaneous Information (Consult) 1 ea N/A UD PRN PRN Reason: Consult Stop: 12/31/18 12:40 Multivitamins (Multivitamin Tab) 1 tab PO QAM [facility] Stop: 10/31/19 08:59 Last Admin: 12/04/18 08:36 Dose: 1 tab Documented by: Multivitamins/Minerals (Multivitamin W/ Minerals Tab) [facility] [place] 01/01/19 08:59 Last Admin: 12/04/18 08:36 Dose: 1 tab Documented by: Naloxone HCl (Narcan) 0.1 mg IV Q5M PRN PRN Reason: Oversedation/Resp Depression Stop: 01/01/19 17:19 Ondansetron HCl (Zofran) 4 mg IV Q6H PRN PRN Reason: Nausea/Vomiting Stop: 12/31/18 19:08 Last Admin: 12/03/18 21:32 Dose: 4 mg Documented by: Oxycodone/Acetaminophen (Percocet 5mg/325mg) 1 - 2 tab PO Q4H PRN PRN Reason: Pain Stop: 12/15/18 19:08 Last Admin: 12/04/18 09:41 Dose: 2 tab Documented by: Ranitidine HCl (Zantac) 300 mg PO [facility] Stop: 12/31/18 20:59 Last Admin: 12/03/18 21:12 Dose: 300 mg Documented by: Sennosides (Senokot) 17.2 mg PO [facility] Stop: 01/01/19 20:59 Last Admin: 12/03/18 21:11 Dose: Not Given Documented by: Trazodone HCl (Desyrel) 150 mg PO [facility] Stop: 12/31/18 20:59 Last Admin: 12/03/18 21:12 Dose: 150 mg Documented by: PG Care Time/CCT Total # of Minutes Spent Total Time Spent with Patient: Total time spent is greater than 50% in coordination of care (as documented) at patient's floor/unit and/or counseling patient: (1) Leukocytosis Leukocytosis type: unspecified Qualified Code(s): D72.829 - Elevated white blood cell count, unspecified (2) Sepsis Sepsis acute organ dysfunction status: unspecified Sepsis type: sepsis due to unspecified organism Qualified Code(s): A41.9 - Sepsis, unspecified organism
[2018-12-04] MEDS: DAPTOmycin 475 MG in SYRINGE 0 ML IV SCH (21:07)
[2018-12-04] MEDS: AMITRIPTYLINE HCL 50 MG TAB PO SCH (21:09)
[2018-12-04] MEDS: TRAZODONE HCL 50 MG TAB PO SCH (21:10)
[2018-12-04] MEDS: SENNA 8.6 MG TAB PO SCH (21:10)
[2018-12-05] MEDS: ONDANSETRON INJ 2 MG/ML 2 ML VIAL IV PRN ×2 (00:02→07:54)
[2018-12-05] MEDS: CHECK SCOPOLAMINE PATCH PLACEMENT SCH ×3 (00:03→15:24)
[2018-12-05] MEDS: HEPARIN 100 UNIT/ML 5ML FLUSH FLUSH PRN ×3 (01:17→09:54)
[2018-12-05] MEDS: OXYCODONE/ACETAMINOPHEN 5mg/325mg TAB PO PRN (04:08)
[2018-12-05] MEDS: METOCLOPRAMIDE HCL INJ 5 MG/ML 2 ML VIAL IV PRN ×3 (04:08→20:13)
[2018-12-05] MEDS: PIPERACILLIN/TAZOBACTAM 3.375 GM in DEXTROSE 5% 100 ML IV SCH (05:02)
[2018-12-05 06:17] LABS: Basophils # (auto) 0.04 K/uL (0-0.2); Basophils % (auto) 0.4 %; Eosinophils # (auto) 0.47 K/uL (0-0.5); Eosinophils % (auto) 4.3 %; Hematocrit (blood only) 28.2 % (37-47); Immature Granulocytes # (auto) 0.03 K/uL (0.00-0.02); Immature Granulocytes % (auto) 0.3 %; Lymphocytes # (auto) 1.27 K/uL (1.2-3.4); Lymphocytes % (auto) 11.6 %; Mean Corpuscular Hgb Conc 31.9 g/dL (32-36); Mean Corpuscular Volume 87.9 fL (80-100); Mean Platelet Volume 8.9 fL (7.4-10.4); Monocytes # (auto) 0.84 K/uL (0.11-0.59); Monocytes % (auto) 7.7 %; Neutrophils # (auto) 8.26 K/uL (1.4-6.5); Neutrophils % (auto) 75.7 %; Platelet Count 300 K/uL (130-400); RDW Coefficient of Variation 14.9 % (11.5-14.5); RDW Standard Deviation 47.7 fL (36.4-46.3); Red Blood Count 3.21 M/uL (4.2-5.4); White Blood Count 10.91 K/uL (4.8-10.8)
[2018-12-05 06:41] LABS: Partial Thromboplastin Ratio 2.6; Prothrombin Time 10.6 Seconds (9.0-12.0)
[2018-12-05 06:45] LABS: Partial Thromboplastin Time 70.8 Seconds (21.0-31.0)
[2018-12-05 07:03] LABS: BUN Creatinine Ratio 16.5 (10-20); Calcium 9.2 mg/dl (8.5-10.1); Creatinine Clr Calc Pharmacy 55.7 ml/min; Est GFR (African American) 51.8; Est GFR (Non-African American) 44.7; Potassium 3.1 mmol/L (3.5-5.1)
[2018-12-05] MEDS: lamoTRIgine 100 MG TAB PO SCH ×2 (07:54→20:18)
[2018-12-05] MEDS: LOSARTAN POTASSIUM 25 MG TAB PO SCH (07:55)
[2018-12-05] MEDS: DOCUSATE SODIUM 100 MG CAP PO SCH ×2 (07:55→20:17)
[2018-12-05] MEDS: CITALOPRAM 40 MG TAB PO SCH (07:55)
[2018-12-05] MEDS: ASPIRIN 81 MG ECTAB PO SCH ×2 (07:55→20:19)
[2018-12-05] MEDS: CEROVITE ADV FORMULA TAB PO SCH (07:56)
[2018-12-05] MEDS: MULTIVITAMIN TAB PO SCH (07:56)
[2018-12-05] MEDS: FAMOTIDINE 20 MG TAB PO SCH (07:56)
--- NOTE | 2018-12-05 08:05 | Orthopedic Progress Note ---
Date of Service December 05, 2018 Assessment & Plan (1) Post op infection: Unfortunately she is not doing well with regards to her nausea. I talked with the hospitalist personally and he is going to make sure he checks on her closely today. Her H&H seem to be stable. We are still having trouble figuring out her elevated PTT. I want to keep the knee wrapped in a compressive dressing and a knee immobilizer for about a week from the day of surgery. I want to give everything a chance to heal before we start motion of the knee. She should get her final cultures back today and get a recommendation for IV antibiotics. I do want to keep her in the hospital today and work on her overall medical condition and her nausea. Present on Admission?: Yes Subjective Gay was seen and examined at bedside this morning. Unfortunately she is not feeling well. She was nauseous all night last night. She looks washed out and diaphoretic. She was doing a little bit better yesterday but really had a difficult night last night. She still has some knee pain but is fairly well controlled. Physical Exam Musculoskeletal: On physical examination of the left knee, the drains were pulled. She has a compressive dressing in place. The knee immobilizer is in place. She has active dorsiflexion and plantarflexion of her left ankle. Results & Data Vital Signs (Past 12 Hours) Vital Signs Temp Pulse Resp BP BP Pulse Ox 12/05/18 07:29 37.0 C 99 H 16 138/74 94 12/05/18 04:10 36.9 C 77 16 129/73 98 12/04/18 23:23 37.0 C 80 18 113/69 98 Laboratory Results H & H 12/01/18 12/02/18 12/03/18 Range/Units 14:00 05:03 05:39 Hgb 12.1 10.6 L 8.2 L (12.0-16.0) g/dL Hct 36.5 L 32.1 L 25.6 L (37-47) % 12/04/18 12/05/18 Range/Units 05:44 05:41 Hgb 8.7 L 9.0 L (12.0-16.0) g/dL Hct 26.9 L 28.2 L (37-47) % Coagulation 12/01/18 12/05/18 Range/Units 14:00 05:41 INR 1.1 1.0 (0.9-1.1) Microbiology 12/02/18 15:13 Gram Stain - Final Knee,Left Aerobic and Anaerobic Culture - Preliminary Coag negative Staphylococcus Group F Beta Strep PG Care Time/CCT Total # of Minutes Spent Total Time Spent with Patient: Total time spent is greater than 50% in coordination of care (as documented) at patient's floor/unit and/or counseling patient:
--- NOTE | 2018-12-05 08:41 | XRay Report ---
XR abdomen 2V w PA chest CLINICAL HISTORY: 67 years-old Female presenting with Nauseated, concern for post op ileus. TECHNIQUE: PA view of the chest and supine and upright views of the abdomen were obtained. COMPARISON: Chest x-ray from 12/01/[address] of abdomen and pelvis from 03/25/2018. FINDINGS: Right subclavian Mediport terminates in the mid SVC as on prior exam. Mediastinal surgical clip. Athe rosclerosis of the aortic arch. Cardiac silhouette mildly enlarged, unchanged. Mildly low lung volume s with hypoventilatory changes. No focal opacity. No large effusion or pneumothorax. Cholecystectomy clips noted. Mild gaseous distention of bowel loops, possibly large bowel. Overall no nobstructive bowel gas pattern. No gross pneumoperitoneum. Allowing for bowel gas and stool, no calcifications to suggest nephrolithiasis. Degenerative changes of the spine. IMPRESSION: 1. Mild cardiomegaly with hypoventilatory changes. No other convincing evidence of acute cardiopulmo nary disease. 2. No radiographic evidence of acute intra-abdominal pathology. No radiographic evidence of ileus or bowel obstruction. Electronically signed by: Radu Cordova M.D. 12/05/2018 8:40 AM
[2018-12-05] MEDS: cefTRIAXone SODIUM 2,000 MG in DEXTROSE 5% 50 ML IV SCH (09:18)
[2018-12-05 11:33] LABS: Albumin Level 2.4 gm/dl (3.4-5.0); Bilirubin,Total 1.4 mg/dl (0.2-1)
[2018-12-05] MEDS: POTASSIUM CHLORIDE 30 MEQ in SODIUM CHLORIDE 0.9% 1000ML 1,000 ML IV SCH ×2 (11:53→18:28)
[2018-12-05] MEDS ORDERED: IOVERSOL 100ml IV PRN (12:49)
--- NOTE | 2018-12-05 13:17 | CT Scan Report ---
CT abd pelvis IV con only CLINICAL HISTORY: 67 years-old Female presenting with Epigastric pain, vomiting. TECHNIQUE: Multidetector CT of the abdomen and pelvis was performed after the administration of intra venous contrast. IV contrast: 94 mL of Optiray 320. One or more dose lowering techniques were used co nsistent with the principles of ALARA (as low as reasonably achievable), including automatic exposure control, mA or kV adjustment to individual patient size, and/or use of iterative reconstruction. COMPARISON: 03/25/2018. CT DOSE (mGy.cm): The estimated cumulative dose is 1645.59 mGy.cm. FINDINGS: Software Trainer topogram: Cholecystectomy clips. Lung bases: Trace aortic valve calcification. Normal heart size. No pericardial or pleural effusion. Minimal dependent changes likely atelectasis. Liver: Normal morphology. Vague hypoattenuation along the fissure for ligament teres likely perfusion al variation or focal fat. Patent hepatic vasculature. Biliary: No intrahepatic or extrahepatic biliary ductal dilatation. Gallbladder surgically absent. Pancreas: Mild parenchymal atrophy. Spleen: Normal. Adrenal glands: Normal. Kidneys and ureters: Few subcentimeter cysts. Otherwise normal parenchyma. No nephrolithiasis or hydr onephrosis. Ureters nondistended. Bladder: Incompletely evaluated secondary to underdistention. Pelvic organs: Uterus surgically absent. No adnexal masses. Bowel: Postsurgical changes of the upper rectum from prior subtotal colectomy. Trace hiatal hernia. S mall bowel is distended with a smooth transition to a less dilated caliber at the ligament of Treitz. There is mild small bowel wall thickening and perienteric interloop fluid and mild edema. Small quintin l remains dilated throughout to the level of the superior pelvis. Few small bowel loops appear adhese d to the anterior abdominal wall at the site of a small wide neck ventral hernia in the suprapubic re gion. Peritoneal cavity: Trace interloop fluid throughout the abdomen and pelvis. No free intraperitoneal g as. Lymph nodes: No enlarged lymph nodes in the abdomen or pelvis. Vasculature: Atherosclerosis of the normal caliber abdominal aorta. IVC patent. Abdominal wall: Postsurgical changes of the midline ventral abdomen primarily in the infra umbilical region. Focal wide neck ventral hernia in the suprapubic region containing small bowel, which is less dilated than the remainder of small bowel. This raises concern for a site of adhesions and/or obstru ction. Musculoskeletal: Degenerative changes of the spine. IMPRESSION: 1. Small ventral hernia in the suprapubic region along a prior incision site. The wide neck hernia c ontains few loops of nondistended small bowel. Given the presence of up stream distended small bowel and presumed high-grade partial or complete bowel obstruction, the hernia is a potential site for the obstruction. This is likely due to adhesions. Electronically signed by: Radu Cordova M.D. 12/05/2018 1:16 PM
--- NOTE | 2018-12-05 13:30 | Infectious Disease Progress Nt ---
Date of Service December 05, 2018 Assessment & Plan (1) Post op infection: pt changed to rocephin 2g daily. will likely need 6 week IV abx post d/c. will need weekly cbc, cmp, esr while on therapy. unclear if zosyn playing role in GI symptoms, now stopped. can follow wiht ID post d/c from hospital. Subjective pt seen in followup, still having abd pain, no nausea but unable to tolerated clears. no f/c. no pain in knee, abx changed to rocephin today, growing GFS - pansensitive. wbc decreased to 10.9 today. afebrile. no cp, sob, cough. Review of Systems Review of Systems: All systems reviewed & are unremarkable except as noted in HPI & below Physical Exam Constitutional: WD/WN, vitals as above Eyes: PERRL, conjunctivae normal, anicteric sclerae ENMT: external ear and nose normal, oropharynx normal Neck: normal visual inspection Respiratory: normal respiratory effort, lungs clear to auscultation Cardiovascular: RRR, no murmur, no edema Gastrointestinal (Abdomen): normal bowel sounds, soft, nontender, no hepatosplenomegaly Musculoskeletal: no cyanosis or clubbing, extremities motor strength 5/5 Skin: no rashes, warm and dry Psychiatric: A+Ox3, euthymic affect Results & Data Vital Signs (Past 12 Hours) Vital Signs Temp Pulse Resp BP BP Pulse Ox 12/05/18 07:29 37.0 C 99 H 16 138/74 94 12/05/18 04:10 36.9 C 77 16 129/73 98 Laboratory Results Microbiology 12/02/18 15:13 Knee,Left Gram Stain - Final 12/02/18 15:13 Knee,Left Aerobic and Anaerobic Culture - Preliminary Coag negative Staphylococcus Group F Beta Strep 12/01/18 14:45 Blood Aerobic Blood Culture - Preliminary No growth in Aerobic bottle after 48 hours. 12/01/18 14:45 Blood Anaerobic Blood Culture - Preliminary No growth in Anaerobic bottle after 48 hours. 12/01/18 14:45 Blood Aerobic Blood Culture - Preliminary No growth in Aerobic bottle after 48 hours. 12/01/18 14:45 Blood Anaerobic Blood Culture - Preliminary No growth in Anaerobic bottle after 48 hours. 12/02/18 15:10 Knee,Left Gram Stain - Final 12/02/18 15:10 Knee,Left Aerobic and Anaerobic Culture - Preliminary No growth to date. PG Care Time/CCT Total # of Minutes Spent Total Time Spent with Patient: Total time spent is greater than 50% in coordination of care (as documented) at patient's floor/unit and/or counseling patient:
--- NOTE | 2018-12-05 13:45 | Hospitalist Progress Note ---
Date of Service December 05, 2018 Assessment & Plan (1) Small bowel obstruction due to adhesions: diagnosed on CT abdomen/pelvis today transition point is at a ventral hernia site, suspicious for adhesions patient thinks she had lysis of adhesions in the past she follows with Dr. Eliceo Dixon who performed her emergent bowel resection and ileostomy will make NPO, IV fluids not actively vomiting so will defer on NGT at this time consult general surgery for their input she has had several loose BM this admission so feel like this could be partial obstruction, hoping it will resolve with conservative measures (2) Septic arthritis of knee, left: s/p TKA by Dr. Hagan a few weeks ago presented with WBC of 22k, pain in left knee, purulent drainage treat with Rocephin 2gm IV daily, will need 6 weeks total blood cultures no growth taken for washout, antibiotic spacer on 12/02, tolerated well wound cultures growing coag negative staph, Group F beta strep (3) Post op infection: see above wound culture with coag neg staph, group F beta strep treat with Rocephin (4) Sepsis: sepsis due to septic TKA on the left, present on arrival vitals stable, no fever WBC down to 10k, repeat tomorrow no growth on blood cultures (5) Cellulitis of left knee: As above (6) Leukocytosis: going down to 10k, due to septic joint (7) Hypokalemia: Chronic issue, K is 3.2 today she has a difficult time tolerating PO supplements will place 30mEq of KCl in IV fluids repeat tomorrow could be medication related, stop HCTZ can increase Losartan if hypertensive which raises K (8) Hypertension: BP is low normal stop HCTZ given her chronic low potassium, may not need this medication will also stop Verapamil if hypertensive then would increase Losartan to 50 since it could also help correct K (9) Hx of sarcoidosis: Currently stable no issues (10) Depression: Currently stable. Continue amitriptyline 50 mg p.o. nightly, continue citalopram 40 mg p.o. every morning, continue trazodone 150 mg p.o. every morning (11) Bipolar 1 disorder, depressed: See above, continue lamotrigine 100 mg p.o. twice daily (12) Seasonal allergies: Continue fluticasone propionate 50 MCG's spray 1 spray intranasal daily as needed for sneezing and allergy symptoms Subjective patient not feeling well this morning, had a rough night with nausea, chills, abdominal pain her left knee is feeling better, less pain, can move her left leg no fever or chills the patient says her abdominal discomfort is in her epigastric region, is is fairly constant she has no appetite she says that it is normal for her to have abdominal pain and nausea after surgery but it typically resolves a lot faster checked obstructive series this morning, no evidence of ileus or obstruction checked lipase, normal LFT minimally elevated, has a history of cholecystectomy got CT abd/pelvis, shows small bowel obstruction with possible adhesions at a ventral hernia site she had prior bowel resection with ileostomy and subsequent reversal with Dr. Eliceo Dixon will keep NPO, IV fluids, consult general surgery I discussed this plan with attending Dr. Hagan appreciate ID input, changed antibiotics to just Rocephin 2gm IV daily Review of Systems Review of Systems: All systems reviewed & are unremarkable except as noted in HPI & below Constitutional: + chills, + sweats, + fatigue and + weakness; no fever Respiratory: no cough and no dyspnea Cardiovascular: no chest pain and no edema Gastrointestinal: + abdominal pain, + nausea and + diarrhea/loose stools (liquid stool yesterday, normal for her after ileostomy); no vomiting and no constipation Musculoskeletal: + joint pain (left knee) Physical Exam Constitutional: WD/WN, vitals as above + obese Eyes: PERRL, conjunctivae normal, anicteric sclerae ENMT: external ear and nose normal, oropharynx normal Neck: trachea midline, no thyromegaly Respiratory: normal respiratory effort, lungs clear to auscultation Cardiovascular: RRR, no murmur, no edema Gastrointestinal (Abdomen): Inspection/Auscultation: abdomen normal to inspection and + hypoactive bowel sounds; abdomen not distended Percussion/Palpation: + abdomen tender (mild in epigastric region) and abdomen soft; no guarding and no hepatosplenomegaly Musculoskeletal: Head/Neck/Chest: normocephalic and head atraumatic Extremities: + limited ROM of extremities (left knee) and + abnormal strength (left leg is weak); + extremities abnormal to inspection (left knee immobilized) Skin: no rashes, warm and dry Neurologic: patellar DTR's 2+ bilat, sensation intact and PERRL, EOMI, accommodation nl, no face palsy, no dysarthria Psychiatric: A+Ox3, euthymic affect Lymphatic: no cervical or axillary lymphadenopathy Results & Data Vital Signs (Past 12 Hours) Vital Signs Temp Pulse Resp BP BP Pulse Ox 12/05/18 07:29 37.0 C 99 H 16 138/74 94 12/05/18 04:10 36.9 C 77 16 129/73 98 Laboratory Results Laboratory Results - last 24 hr 12/05/18 12/05/18 12/05/18 05:41 05:41 05:41 WBC 10.91 H RBC 3.21 L Hgb 9.0 L Hct 28.2 L MCV 87.9 MCH 28.0 MCHC 31.9 L RDW Std Deviation 47.7 H RDW Coeff of Christina 14.9 H Plt Count 300 MPV 8.9 Immature Gran % (Auto) 0.3 Neut % (Auto) 75.7 Lymph % (Auto) 11.6 [place] % (Auto) 7.7 Eos % (Auto) 4.3 Baso % (Auto) 0.4 Immature Gran # (Auto) 0.03 H Neut # (Auto) 8.26 H Lymph # (Auto) 1.27 [place] # (Auto) 0.84 H Eos # (Auto) 0.47 Baso # (Auto) 0.04 PT 10.6 INR 1.0 APTT 70.8 H* PTT Ratio 2.6 Sodium 138 Potassium 3.1 L Chloride 99 Carbon Dioxide 29 Anion Gap 10.0 BUN 21 H Creatinine 1.26 H Est Cr Clr Drug Dosing 55.7 Est GFR ( Amer) 51.8 Est GFR (Non-Af Amer) 44.7 BUN/Creatinine Ratio 16.5 Glucose 112 H Calcium 9.2 Total Bilirubin Direct Bilirubin AST ALT Alkaline Phosphatase Total Protein Albumin Lipase 12/05/18 12/05/18 05:41 10:59 WBC RBC Hgb Hct MCV MCH MCHC RDW Std Deviation RDW Coeff of Christina Plt Count MPV Immature Gran % (Auto) Neut % (Auto) Lymph % (Auto) [place] % (Auto) Eos % (Auto) Baso % (Auto) Immature Gran # (Auto) Neut # (Auto) Lymph # (Auto) [place] # (Auto) Eos # (Auto) Baso # (Auto) PT INR APTT PTT Ratio Sodium Potassium Chloride Carbon Dioxide Anion Gap BUN Creatinine Est Cr Clr Drug Dosing Est GFR ( Amer) Est GFR (Non-Af Amer) BUN/Creatinine Ratio Glucose Calcium Total Bilirubin 1.4 H Direct Bilirubin 1.0 H AST 72 H ALT 61 Alkaline Phosphatase 227 H Total Protein 7.0 Albumin 2.4 L Lipase 161 Microbiology 12/02/18 15:13 Knee,Left Gram Stain - Final 12/02/18 15:13 Knee,Left Aerobic and Anaerobic Culture - Preliminary Coag negative Staphylococcus Group F Beta Strep 12/01/18 14:45 Blood Aerobic Blood Culture - Preliminary No growth in Aerobic bottle after 48 hours. 12/01/18 14:45 Blood Anaerobic Blood Culture - Preliminary No growth in Anaerobic bottle after 48 hours. 12/01/18 14:45 Blood Aerobic Blood Culture - Preliminary No growth in Aerobic bottle after 48 hours. 12/01/18 14:45 Blood Anaerobic Blood Culture - Preliminary No growth in Anaerobic bottle after 48 hours. 12/02/18 15:10 Knee,Left Gram Stain - Final 12/02/18 15:10 Knee,Left Aerobic and Anaerobic Culture - Preliminary No growth to date. Diagnostic Findings CT ABDOMEN/PELVIS WITH IV CONTRAST ONLY IMPRESSION: 1. Small ventral hernia in the suprapubic region along a prior incision site. The wide neck hernia contains few loops of nondistended small bowel. Given the presence of up stream distended small bowel and presumed high-grade partial or complete bowel obstruction, the hernia is a potential site for the obstruction. This is likely due to adhesions. Medications Administered Current Inpatient Medications Amitriptyline HCl (Elavil) [address] [facility] Stop: 12/31/18 20:59 Last Admin: 12/04/18 21:09 Dose: 50 mg Documented by: Aspirin (Ecotrin Ectab) [address] [facility] Stop: 12/31/18 20:59 Last Admin: 12/05/18 07:55 Dose: Not Given Documented by: Bisacodyl (Dulcolax) 10 mg [place] DAILY PRN PRN Reason: Constipation Stop: 01/01/19 17:19 Citalopram Hydrobromide (Celexa) 40 mg PO QAM [facility] Stop: 01/01/19 08:59 Last Admin: 12/05/18 07:55 Dose: Not Given Documented by: Docusate Sodium (Colace) [address] [facility] Stop: 01/01/19 20:59 Last Admin: 12/05/18 07:55 Dose: Not Given Documented by: Famotidine (Pepcid) 20 mg PO DAILY [facility] Stop: 01/03/19 08:59 Last Admin: 12/05/18 07:56 Dose: Not Given Documented by: Fluticasone Propionate (Flonase) 1 sprays NA DAILY PRN PRN Reason: Congestion Stop: 12/31/18 19:08 Heparin Sodium (Porcine) (Heparin Sod 100 Unit/Ml Flush) 5 ml FLUSH PRN PRN PRN Reason: Flush Stop: 01/01/19 01:44 Last Admin: 12/05/18 09:54 Dose: 5 ml Documented by: Hydralazine HCl (Apresoline) 10 mg PO TID PRN PRN Reason: high blood pressure Stop: 12/31/18 20:59 Last Admin: 12/02/18 07:47 Dose: 10 mg Documented by: Hydromorphone HCl (Dilaudid) 0.5 mg IV Q2H PRN PRN Reason: Pain Stop: 12/17/18 07:12 Last Admin: 12/03/18 21:31 Dose: 0.5 mg Documented by: Ceftriaxone Sodium 2,000 mg/ (Dextrose) 70 mls @ 100 mls/hr IV DAILY [facility]; Protocol Stop: 01/16/19 08:59 Last Infusion: 12/05/18 09:57 Dose: Infused Documented by: Potassium Chloride 30 meq/ (Sodium Chloride) 1,015 mls @ 150 mls/hr IV .Q6H46M [facility] Stop: 01/04/19 10:29 Last Admin: 12/05/18 11:53 Dose: 150 mls/hr Documented by: Ioversol (Optiray 320 100ml) 94 ml IV ONCE PRN PRN Reason: Interaction Checking Stop: 12/09/18 12:48 Last Admin: 12/05/18 12:49 Dose: 94 ml Documented by: Lamotrigine (Lamictal) 100 mg PO BID [facility] Stop: 12/31/18 20:59 Last Admin: 12/05/18 07:54 Dose: 100 mg Documented by: Losartan Potassium (Cozaar) 25 mg PO QAM [facility] Stop: 01/01/19 08:59 Last Admin: 12/05/18 07:55 Dose: Not Given Documented by: Magnesium Hydroxide (Milk Of Magnesia) 30 ml PO Q6H PRN PRN Reason: Constipation Stop: 01/01/19 17:19 Metoclopramide HCl (Reglan) 10 mg IV Q6H PRN PRN Reason: Nausea/Vomiting Stop: 12/31/18 19:08 Last Admin: 12/05/18 13:38 Dose: 10 mg Documented by: Miscellaneous (Check Scopolamine Patch Placement) 1 ea N/A QS [facility] Stop: 01/01/19 15:59 Last Admin: 12/05/18 15:24 Dose: Not Given Documented by: Miscellaneous (Remove Transderm-Scop Patch) 1 ea N/A Q72H [facility] Stop: 01/04/19 13:44 Last Admin: 12/05/18 12:40 Dose: Not Given Documented by: Multivitamins (Multivitamin Tab) [address] [facility] Stop: 01/02/19 08:59 Last Admin: 12/05/18 07:56 Dose: Not Given Documented by: Multivitamins/Minerals (Multivitamin W/ Minerals Tab) [address] [facility] Stop: 01/01/19 08:59 Last Admin: 12/05/18 07:56 Dose: Not Given Documented by: Naloxone HCl (Narcan) 0.1 mg IV Q5M PRN PRN Reason: Oversedation/Resp Depression Stop: 01/01/19 17:19 Ondansetron HCl (Zofran) 4 mg IV Q6H PRN PRN Reason: Nausea/Vomiting Stop: 12/31/18 19:08 Last Admin: 12/05/18 07:54 Dose: 4 mg Documented by: Oxycodone/Acetaminophen (Percocet 5mg/325mg) 1 - 2 tab PO Q4H PRN PRN Reason: Pain Stop: 12/15/18 19:08 Last Admin: 12/05/18 04:08 Dose: 2 tab Documented by: Ranitidine HCl (Zantac) 300 mg PO [facility] Stop: 12/31/18 20:59 Last Admin: 12/04/18 21:10 Dose: 300 mg Documented by: Sennosides (Senokot) 17.2 mg PO [facility] Stop: 01/01/19 20:59 Last Admin: 12/04/18 21:10 Dose: Not Given Documented by: Trazodone HCl (Desyrel) 150 mg PO HS [facility] Stop: 12/31/18 20:59 Last Admin: 12/04/18 21:10 Dose: 150 mg Documented by: PG Care Time/CCT Total # of Minutes Spent Total Time Spent with Patient: Total time spent is greater than 50% in coordination of care (as documented) at patient's floor/unit and/or counseling patient: (1) Leukocytosis Leukocytosis type: unspecified Qualified Code(s): D72.829 - Elevated white blood cell count, unspecified (2) Sepsis Sepsis acute organ dysfunction status: unspecified Sepsis type: sepsis due to unspecified organism Qualified Code(s): A41.9 - Sepsis, unspecified organism
--- NOTE | 2018-12-05 20:15 | Surgery Consultation ---
Date of Consultation December 05, 2018 Assessment & Plan (1) Small bowel obstruction due to adhesions: At this time the patient may have an element of partial bowel obstruction he has been moving her bowels at least one time as recorded but she allegedly said that she has almost diarrhea which has not been documented by the nurses For tonight I will keep her n.p.o. except for meds and reevaluate her see how she is in the morning if she is still complaining of pain we will reimage her with an acute abdominal series and pending those results may get an upper GI with small bowel follow-through At this time the patient does not have a surgical problem and will follow along with you Present on Admission?: No History of Present Illness Attending Physician: Nick Hagan, General surgery was asked to see the patient regarding possible small bowel obstruction This 67-year-old female who in the past had colon resection with a protective ileostomy that was reversed dating back to 1999 and so has had liquid stools semi-formed since then She also underwent cholecystectomy in the past She had a right total knee done in March 2018 without any issues underwent a left total knee on 11/19/2018 3 days later she was admitted and transfused and on December 02 she underwent a cleanout of her left knee for likely infection She stated that since the operation of her cleanout she has been nauseated up to yesterday since yesterday she has had no further nausea she is complaining some abdominal pain in the epigastric area she states her bowel movements have been loose and frequent although I did talk specifically with the nurses and stated that they only saw one bowel movement earlier today He said that she also has not had any pain like this in the upper abdomen for some time Allergies Allergy/AdvReac Type Severity Reaction Status Date / Time Cipro Allergy Mild RASH Verified 10/16/17 08:30 ciprofloxacin Allergy Mild RASH Verified 12/01/18 12:37 Quinolones Allergy Mild RASH Verified 12/01/18 12:37 sumatriptan AdvReac Mild PALPITATIONS, Verified 12/01/18 12:37 HEART RACING theophylline AdvReac Mild PALPITATIONS, Verified 12/01/18 12:37 HEART RACING prednisone AdvReac Unknown PALPITATIONS, Verified 12/01/18 12:37 NAUSEA epinephrine AdvReac TACHYCARDIA Verified 12/01/18 12:37 Home Medications Home Medications Medication Instructions Recorded Confirmed Type citalopram 40 mg PO QAM #0 11/17/15 12/01/18 History losartan 25 mg PO QAM #0 tab 03/07/17 12/01/18 History amitriptyline 50 mg PO HS #0 tab 07/31/17 12/01/18 History trazodone 150 mg PO HS #0 tab 07/31/17 12/01/18 History lamotrigine [Lamictal] 100 mg PO BID 03/25/18 12/01/18 History fluticasone propionate 50 1 spray INTRANASAL DAILY PRN gm 10/09/18 12/01/18 History mcg/actuation nasal spray,suspension multivit with 1 tab PO DAILY 10/11/18 12/01/18 History ghychqnn-qhvw-YW-lutein 8 mg iron-400 mcg-300 mcg tablet ranitidine 150 mg tablet 300 mg PO HS 10/11/18 12/01/18 History hydrochlorothiazide 25 mg PO QAM 11/08/18 12/01/18 History pantoprazole 40 mg PO BID 11/08/18 12/01/18 History potassium chloride [Klor-Con 10] 10 meq PO Q OTHER DAY 11/08/18 12/01/18 History verapamil 120 mg PO QAM 11/08/18 12/01/18 History aspirin [Ecotrin Low Strength] 81 mg PO BID #84 tab 11/20/18 12/01/18 Rx oxycodone 5 mg PO Q4H PRN #40 tab 11/20/18 12/01/18 Rx Patient History Medical History Hypokalemia chronic- on KCL 10mg QOD Anxiety Asthma stable Bipolar disorder Chronic back pain Depression GERD (gastroesophageal reflux disease) controlled Hypertension Morbid obesity Sarcoidosis no pulmonary issues; does have occasional LE nodules Ulcerative colitis s/p ileostomy and subsequent reverse; no recent flares Surgical History History of arthroscopy of right shoulder 08/16/17: LMA#4 + PNB at [facility] [place] History of biopsy RLE nodule History of cholecystectomy + appendectomy History of colonoscopy History of esophagogastroduodenoscopy (EGD) History of ileostomy History of lymph node biopsy dx sarcoidosis History of reversal of ileostomy History of total abdominal hysterectomy and bilateral salpingo-oophorectomy History of total knee replacement right History of vascular access device port right chest wall (2/2 poor venous access) S/P total knee arthroplasty 11/19/18- L TKA done by Dr. 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 Beliefs That Will Affect Care: None marital status: Current Living Situation: Spouse Other Information That Helps Us Care for You: No Feels Safe at Home: Yes Safety Concerns: Feels Safe At This Time Smoking Status: Never smoker Second Hand Exposure: Yes (EX USED TO SMOKE) ; Hx Alcohol Use: No Hx Substance Use: No Review of Systems Review of Systems: All systems reviewed & are unremarkable except as noted in HPI & below Physical Exam Physical Exam: Patient is alert comfortable in bed wanting to get some sleep Eyes: PERRL, conjunctivae normal, anicteric sclerae ENMT: external ear and nose normal, oropharynx normal Neck: trachea midline, no thyromegaly Respiratory: normal respiratory effort, lungs clear to auscultation Cardiovascular: RRR, no murmur, no edema Gastrointestinal (Abdomen): Completely benign abdomen multiple scars noted from previous surgery there is no tenderness in the epigastric area there is more of a fullness but certainly no hernias that I can appreciate Musculoskeletal: Left knee is in immobilizer both feet are warm and well- perfused Results & Data Vital Signs (Past 12 Hours) Vital Signs Temp Pulse Resp BP Pulse Ox 12/05/18 16:37 37.1 C 94 H 17 145/76 H 97 CAT scan laboratory was noted PG Care Time/CCT Total # of Minutes Spent Total Time Spent with Patient: Total time spent is greater than 50% in coordination of care (as documented) at patient's floor/unit and/or counseling patient:
[2018-12-05] MEDS: SENNA 8.6 MG TAB PO SCH (20:17)
[2018-12-05] MEDS: TRAZODONE HCL 50 MG TAB PO SCH (20:17)
[2018-12-05] MEDS: AMITRIPTYLINE HCL 50 MG TAB PO SCH (20:20)
--- NOTE | 2018-12-05 22:02 | Ultrasound Report ---
BILIARY ULTRASOUND CLINICAL HISTORY: Elevated LFTs. Possible common bile duct calculi. COMPARISON STUDY: CT scan dated 12/05/2018 FINDINGS: The study is difficult from a technical standpoint secondary to the patient's body habitus. Gallbladder is surgically absent. The liver appears of slightly increased echogenicity suggesting hepatic steatosis. There is no right-sided hydronephrosis. The pancreas appears sonographically normal. There is no intrahepatic biliary ductal dilatation. The common bile duct measures 7 mm. IMPRESSION: 1. Technically difficult study 2. Suspected hepatic steatosis 3. No significant ductal dilatation 4. Surgically absent gallbladder Electronically signed by: Ruddy Atkins M.D. 12/05/2018 10:00 PM
[2018-12-06] MEDS: POTASSIUM CHLORIDE 30 MEQ in SODIUM CHLORIDE 0.9% 1000ML 1,000 ML IV SCH ×2 (00:16→06:31)
[2018-12-06] MEDS ORDERED: Nursing to Pharmacy Communication ONE (00:40)
[2018-12-06] MEDS: METOCLOPRAMIDE HCL INJ 5 MG/ML 2 ML VIAL IV PRN ×3 (03:34→15:21)
[2018-12-06 06:39] LABS: Hematocrit (blood only) 26.5 % (37-47); Hemoglobin 8.3 g/dL (12.0-16.0); Mean Corpuscular Hemoglobin 28.1 pg (25-34); Mean Corpuscular Hgb Conc 31.3 g/dL (32-36); Mean Corpuscular Volume 89.8 fL (80-100); Mean Platelet Volume 8.7 fL (7.4-10.4); Platelet Count 301 K/uL (130-400); RDW Standard Deviation 49.5 fL (36.4-46.3); Red Blood Count 2.95 M/uL (4.2-5.4); White Blood Count 11.54 K/uL (4.8-10.8)
[2018-12-06 07:25] LABS: Albumin Globulin Ratio 0.5 (0.9-2); Albumin Level 2.1 gm/dl (3.4-5.0); BUN Creatinine Ratio 18.3 (10-20); Bilirubin,Total 0.9 mg/dl (0.2-1); Calcium 8.6 mg/dl (8.5-10.1); Creatinine Clr Calc Pharmacy 78.8 ml/min; Est GFR (African American) 78.8; Globulin 4.2 gm/dl (2.5-4.0); Potassium 3.9 mmol/L (3.5-5.1); Total Protein 6.3 gm/dl (6.4-8.2)
--- NOTE | 2018-12-06 08:26 | Surgery Progress Note ---
Date of Service December 06, 2018 Assessment & Plan (1) Small bowel obstruction due to adhesions: Patient continues to endorse epigastric pain and have multiple loose bowel movements Will order Cdiff to rule out infectious etiology of diarrhea Will obtain KUB this morning to assess bowel pattern; if unremarkable could consider a GI consult to evaluate for an ulcer causing her nausea/pain. Changed her antacid to BID dosing for now. Continue NPO with IVF Patient seen and examined with Dr. Kati Ramos Surgery will be covering this weekend. Subjective Patient endorsing ongoing epigastric pain. Says she has had similar pain like t his in the past, but never to this severity. Continues to have multiple bouts of loose stools. Having nausea but no emesis. Physical Exam Physical Exam: awake/alert Gastrointestinal (Abdomen): Inspection/Auscultation: abdomen not distended Percussion/Palpation: + abdomen tender (in epigastric region) and abdomen soft Results & Data Vital Signs (Past 12 Hours) Vital Signs Temp Pulse Resp BP BP Pulse Ox 12/06/18 07:23 36.6 C 99 H 16 135/76 94 12/05/18 23:25 37.0 C 97 H 17 124/69 93 PG Care Time/CCT Total # of Minutes Spent Total Time Spent with Patient: Total time spent is greater than 50% in coordination of care (as documented) at patient's floor/unit and/or counseling patient:
--- NOTE | 2018-12-06 08:51 | Orthopedic Progress Note ---
Date of Service December 06, 2018 Assessment & Plan (1) Post op infection: She is doing better with regards to her nausea and her knee pain however she still having trouble with her bowels. The hospitalist and the surgeons are helping her out with that. With regards to her knee cultures, I did call down the micro personally. The deep cultures are not growing out anything, the superficial cultures grew out only a single colony of the bacteria listed. He said it is quite possibly just a contaminant. I still feel safe keeping her on the 6-week course of IV antibiotics. She will continue to be followed by infectious disease. She can be weightbearing as tolerated on her left knee. I am going to keep the dressing off for now and leave her incision open to air. She can be discharged home once its okay with the hospitalist and the general surgery team with regards to her bowels. Present on Admission?: Yes Subjective Gay was seen and examined at bedside this morning. Overall she is feeling better. She is not having as much nausea as she was. She is still having a lot of diarrhea. She is being worked up for small bowel obstruction. She also has a possible hernia. She is not having too much pain in the left knee. She has no other complaints. Physical Exam Musculoskeletal: Physical examination of the left knee, the dressing was removed and the knee immobilizer was removed. The incision is clean and dry and there is no drainage. There is no erythema or signs of infection. We will leave it open to air for now. Results & Data Vital Signs (Past 12 Hours) Vital Signs Temp Pulse Resp BP BP Pulse Ox 12/06/18 07:23 36.6 C 99 H 16 135/76 94 12/05/18 23:25 37.0 C 97 H 17 124/69 93 Laboratory Results Microbiology 12/02/18 15:13 Gram Stain - Final Knee,Left Aerobic and Anaerobic Culture - Preliminary Coag negative Staphylococcus Group F Beta Strep H & H 12/01/18 12/02/18 12/03/18 Range/Units 14:00 05:03 05:39 Hgb 12.1 10.6 L 8.2 L (12.0-16.0) g/dL Hct 36.5 L 32.1 L 25.6 L (37-47) % 12/04/18 12/05/18 12/06/18 Range/Units 05:44 05:41 05:48 Hgb 8.7 L 9.0 L 8.3 L (12.0-16.0) g/dL Hct 26.9 L 28.2 L 26.5 L (37-47) % Coagulation 12/01/18 12/05/18 Range/Units 14:00 05:41 INR 1.1 1.0 (0.9-1.1) PG Care Time/CCT Total # of Minutes Spent Total Time Spent with Patient: Total time spent is greater than 50% in coordination of care (as documented) at patient's floor/unit and/or counseling patient:
[2018-12-06] MEDS: DOCUSATE SODIUM 100 MG CAP PO SCH ×2 (08:53→21:23)
[2018-12-06] MEDS: FAMOTIDINE 20 MG TAB PO SCH ×2 (08:56→21:24)
[2018-12-06] MEDS: LOSARTAN POTASSIUM 25 MG TAB PO SCH (08:57)
[2018-12-06] MEDS: lamoTRIgine 100 MG TAB PO SCH ×2 (08:57→21:24)
[2018-12-06] MEDS: ASPIRIN 81 MG ECTAB PO SCH ×2 (08:57→21:24)
[2018-12-06] MEDS: CEROVITE ADV FORMULA TAB PO SCH (08:57)
[2018-12-06] MEDS: CITALOPRAM 40 MG TAB PO SCH (08:57)
[2018-12-06] MEDS: cefTRIAXone SODIUM 2,000 MG in DEXTROSE 5% 50 ML IV SCH (09:30)
[2018-12-06] MEDS: OXYCODONE/ACETAMINOPHEN 5mg/325mg TAB PO PRN ×2 (09:32→16:45)
--- NOTE | 2018-12-06 10:18 | XRay Report ---
KUB CLINICAL HISTORY: Evaluate for ileus or small bowel obstruction. COMPARISON STUDY: CT of the abdomen and pelvis December 05, 2018. FINDINGS: There are cholecystectomy clips. Mildly dilated loops of small bowel are largely fluid-fill ed as shown on CT. This makes evaluation by radiography somewhat difficult. The findings favor a pers istent small bowel obstruction. IMPRESSION: Findings suggestive of a persistent small bowel obstruction. Electronically signed by: Osmar Dockery M.D. 12/06/2018 10:16 AM
--- NOTE | 2018-12-06 13:26 | Hospitalist Progress Note ---
Date of Service December 06, 2018 Assessment & Plan (1) Small bowel obstruction due to adhesions: diagnosed on CT abdomen/pelvis on 12/05 transition point is at a ventral hernia site, suspicious for adhesions patient thinks she had lysis of adhesions in the past she follows with Dr. Eliceo Dixon who performed her emergent bowel resection and ileostomy allow clears today, IV fluids not actively vomiting so will defer on NGT at this time KUB on 12/06 with persistent findings, but patient had a loose stool general surgery following, for now plan for conservative measures (2) Septic arthritis of knee, left: s/p TKA by Dr. Hagan a few weeks ago presented with WBC of 22k, pain in left knee, purulent drainage treat with Rocephin 2gm IV daily, will need 6 weeks total blood cultures no growth, WBC down to 11k taken for washout, antibiotic spacer on 12/02, tolerated well wound cultures growing coag negative staph, Group F beta strep (3) Post op infection: see above wound culture with coag neg staph, group F beta strep treat with Rocephin (4) Sepsis: sepsis due to septic TKA on the left, present on arrival vitals stable, no fever WBC down to 11k, repeat tomorrow no growth on blood cultures (5) Cellulitis of left knee: As above (6) Leukocytosis: going down to 11k, due to septic joint (7) Hypokalemia: Chronic issue, K is 3.9 today she has a difficult time tolerating PO supplements will stop KCl in IV fluids repeat tomorrow could be medication related, stop HCTZ can increase Losartan if hypertensive which raises K (8) Hypertension: BP is stable stopped HCTZ given her chronic low potassium, may not need this medication will also stop Verapamil if hypertensive then would increase Losartan to 50 since it could also help correct K (9) Hx of sarcoidosis: Currently stable no issues (10) Depression: Currently stable. Continue amitriptyline 50 mg p.o. nightly, continue citalopram 40 mg p.o. every morning, continue trazodone 150 mg p.o. every morning (11) Bipolar 1 disorder, depressed: See above, continue lamotrigine 100 mg p.o. twice daily (12) Seasonal allergies: Continue fluticasone propionate 50 MCG's spray 1 spray intranasal daily as needed for sneezing and allergy symptoms Subjective patient still with epigastric discomfort, nausea, no vomiting just trying some ice chips causes her epigastric pain to get worse appreciate surgery note, will try some clears reviewed labs, WBC 11k, Hb down a little to 8.3 Cr and electrolytes stable she was ambulating in the halls with therapy today, walking well with her walker d/w CM, gave her script for the Rocephin for 6 weeks unfortunately she is not feeling much better from GI perspective will see how she does with clears Review of Systems Review of Systems: All systems reviewed & are unremarkable except as noted in HPI & below Respiratory: no cough, no dyspnea and no dyspnea on exertion Cardiovascular: no chest pain and no edema Gastrointestinal: + abdominal pain, + nausea and + diarrhea/loose stools; no vomiting and no constipation Musculoskeletal: + joint pain (left knee) Physical Exam Constitutional: WD/WN, vitals as above + obese Eyes: PERRL, conjunctivae normal, anicteric sclerae ENMT: external ear and nose normal, oropharynx normal Neck: trachea midline, no thyromegaly Respiratory: normal respiratory effort, lungs clear to auscultation Cardiovascular: RRR, no murmur, no edema Gastrointestinal (Abdomen): Inspection/Auscultation: abdomen normal to inspection and + hypoactive bowel sounds; abdomen not distended Percussion/Palpation: + abdomen tender (mild in epigastric region) and abdomen soft; no guarding and no hepatosplenomegaly Musculoskeletal: Head/Neck/Chest: normocephalic and head atraumatic Extremities: + limited ROM of extremities (left knee) and + abnormal strength (left leg is weak); + extremities abnormal to inspection (left knee immobilized) Skin: no rashes, warm and dry Neurologic: patellar DTR's 2+ bilat, sensation intact and PERRL, EOMI, accommodation nl, no face palsy, no dysarthria Psychiatric: A+Ox3, euthymic affect Lymphatic: no cervical or axillary lymphadenopathy Results & Data Vital Signs (Past 12 Hours) Vital Signs Temp Pulse Resp BP Pulse Ox 12/06/18 07:23 36.6 C 99 H 16 135/76 94 Laboratory Results Laboratory Results - last 24 hr 12/06/18 12/06/18 05:48 05:48 WBC 11.54 H RBC 2.95 L Hgb 8.3 L Hct 26.5 L MCV 89.8 MCH 28.1 MCHC 31.3 L RDW Std Deviation 49.5 H RDW Coeff of Christina 15.0 H Plt Count 301 MPV 8.7 Sodium 141 Potassium 3.9 D Chloride 109 H Carbon Dioxide 24 Anion Gap 8.0 BUN 16 Creatinine 0.89 D Est Cr Clr Drug Dosing 78.8 Est GFR ( Amer) 78.8 Est GFR (Non-Af Amer) 68.0 BUN/Creatinine Ratio 18.3 Glucose 67 L Calcium 8.6 Total Bilirubin 0.9 D AST 73 H ALT 80 H Alkaline Phosphatase 189 H Total Protein 6.3 L Albumin 2.1 L Globulin 4.2 H Albumin/Globulin Ratio 0.5 L Diagnostic Findings KUB CLINICAL HISTORY: Evaluate for ileus or small bowel obstruction. COMPARISON STUDY: CT of the abdomen and pelvis December 05, 2018. FINDINGS: There are cholecystectomy clips. Mildly dilated loops of small bowel are largely fluid-filled as shown on CT. This makes evaluation by radiography somewhat difficult. The findings favor a persistent small bowel obstruction. IMPRESSION: Findings suggestive of a persistent small bowel obstruction. Medications Administered Current Inpatient Medications Amitriptyline HCl (Elavil) 50 mg PO HS [facility] Stop: 12/31/18 20:59 Last Admin: 12/05/18 20:20 Dose: 50 mg Documented by: Aspirin (Ecotrin Ectab) 81 mg PO BID [facility] Stop: 12/31/18 20:59 Last Admin: 12/06/18 08:57 Dose: 81 mg Documented by: Bisacodyl (Dulcolax) 10 mg SC DAILY PRN PRN Reason: Constipation Stop: 01/01/19 17:19 Citalopram Hydrobromide (Celexa) 40 mg PO QAM [facility] Stop: 01/01/19 08:59 Last Admin: 12/06/18 08:57 Dose: 40 mg Documented by: Docusate Sodium (Colace) 100 mg PO BID [facility] Stop: 01/01/19 20:59 Last Admin: 12/06/18 08:53 Dose: Not Given Documented by: Famotidine (Pepcid) 20 mg PO BID [facility] Stop: 01/05/19 08:59 Last Admin: 12/06/18 08:56 Dose: 20 mg Documented by: Fluticasone Propionate (Flonase) 1 sprays NA DAILY PRN PRN Reason: Congestion Stop: 12/31/18 19:08 Heparin Sodium (Porcine) (Heparin Sod 100 Unit/Ml Flush) 5 ml FLUSH PRN PRN PRN Reason: Flush Stop: 01/01/19 01:44 Last Admin: 12/05/18 09:54 Dose: 5 ml Documented by: Hydromorphone HCl (Dilaudid) 0.5 mg IV Q2H PRN PRN Reason: Pain Stop: 12/17/18 07:12 Last Admin: 12/03/18 21:31 Dose: 0.5 mg Documented by: Ceftriaxone Sodium 2,000 mg/ (Dextrose) 70 mls @ 100 mls/hr IV DAILY [facility]; Protocol Stop: 01/16/19 08:59 Last Infusion: 12/06/18 10:12 Dose: Infused Documented by: Potassium Chloride 30 meq/ (Sodium Chloride) 1,015 mls @ 100 mls/hr IV .Q10H9M MEENA Stop: 01/04/19 10:29 Last Infusion: 12/06/18 06:32 Dose: 100 mls/hr Documented by: Ioversol (Optiray 320 100ml) 94 ml IV ONCE PRN PRN Reason: Interaction Checking Stop: 12/09/18 12:48 Last Admin: 12/05/18 12:49 Dose: 94 ml Documented by: Lamotrigine (Lamictal) 100 mg PO BID [facility] Stop: 12/31/18 20:59 Last Admin: 12/06/18 08:57 Dose: 100 mg Documented by: Losartan Potassium (Cozaar) 25 mg PO QAM MEENA Stop: 01/01/19 08:59 Last Admin: 12/06/18 08:57 Dose: 25 mg Documented by: Magnesium Hydroxide (Milk Of Magnesia) 30 ml PO Q6H PRN PRN Reason: Constipation Stop: 01/01/19 17:19 Metoclopramide HCl (Reglan) 10 mg IV Q6H PRN PRN Reason: Nausea/Vomiting Stop: 12/31/18 19:08 Last Admin: 12/06/18 09:04 Dose: 10 mg Documented by: Multivitamins/Minerals (Multivitamin W/ Minerals Tab) 1 tab PO QAM [facility]EENA Stop: 01/01/19 08:59 Last Admin: 12/06/18 08:57 Dose: 1 tab Documented by: Naloxone HCl (Narcan) 0.1 mg IV Q5M PRN PRN Reason: Oversedation/Resp Depression Stop: 01/01/19 17:19 Ondansetron HCl (Zofran) 4 mg IV Q6H PRN PRN Reason: Nausea/Vomiting Stop: 12/31/18 19:08 Last Admin: 12/05/18 07:54 Dose: 4 mg Documented by: Oxycodone/Acetaminophen (Percocet 5mg/325mg) 1 - 2 tab PO Q4H PRN PRN Reason: Pain Stop: 12/15/18 19:08 Last Admin: 12/06/18 09:32 Dose: 2 tab Documented by: Ranitidine HCl (Zantac) 300 mg PO [facility] Stop: 12/31/18 20:59 Last Admin: 12/05/18 20:20 Dose: 300 mg Documented by: Sennosides (Senokot) 17.2 mg PO [facility] Stop: 01/01/19 20:59 Last Admin: 12/05/18 20:17 Dose: Not Given Documented by: Trazodone HCl (Desyrel) 150 mg PO [facility] Stop: 12/31/18 20:59 Last Admin: 12/05/18 20:17 Dose: 150 mg Documented by: PG Care Time/CCT Total # of Minutes Spent Total Time Spent with Patient: Total time spent is greater than 50% in coordination of care (as documented) at patient's floor/unit and/or counseling patient: (1) Sepsis Sepsis acute organ dysfunction status: unspecified Sepsis type: sepsis due to unspecified organism Qualified Code(s): A41.9 - Sepsis, unspecified organism (2) Leukocytosis Leukocytosis type: unspecified Qualified Code(s): D72.829 - Elevated white blood cell count, unspecified
[2018-12-06] MEDS: HEPARIN 100 UNIT/ML 5ML FLUSH FLUSH PRN ×3 (13:47→21:29)
[2018-12-06] MEDS: ONDANSETRON INJ 2 MG/ML 2 ML VIAL IV PRN ×2 (13:53→21:25)
[2018-12-06] MEDS: AMITRIPTYLINE HCL 50 MG TAB PO SCH (21:24)
[2018-12-06] MEDS: TRAZODONE HCL 50 MG TAB PO SCH (21:25)
[2018-12-06] MEDS: SENNA 8.6 MG TAB PO SCH (21:25)
[2018-12-07] MEDS: OXYCODONE/ACETAMINOPHEN 5mg/325mg TAB PO PRN ×3 (03:53→18:49)
[2018-12-07] MEDS: METOCLOPRAMIDE HCL INJ 5 MG/ML 2 ML VIAL IV PRN ×2 (03:54→12:37)
[2018-12-07] MEDS: HEPARIN 100 UNIT/ML 5ML FLUSH FLUSH PRN ×3 (06:16→12:37)
[2018-12-07 06:48] LABS: Hematocrit (blood only) 25.2 % (37-47); Hemoglobin 8.1 g/dL (12.0-16.0); Mean Corpuscular Hemoglobin 28.6 pg (25-34); Mean Corpuscular Hgb Conc 32.1 g/dL (32-36); Mean Platelet Volume 8.5 fL (7.4-10.4); Platelet Count 276 K/uL (130-400); RDW Coefficient of Variation 14.9 % (11.5-14.5); RDW Standard Deviation 48.5 fL (36.4-46.3); Red Blood Count 2.83 M/uL (4.2-5.4); White Blood Count 9.48 K/uL (4.8-10.8)
[2018-12-07 07:18] LABS: Albumin Level 2.3 gm/dl (3.4-5.0); BUN Creatinine Ratio 18.3 (10-20); Calcium 8.7 mg/dl (8.5-10.1); Creatinine Clr Calc Pharmacy 91.1 ml/min; Est GFR (African American) 93.9
[2018-12-07 07:21] LABS: Albumin Globulin Ratio 0.6 (0.9-2); Bilirubin,Total 0.5 mg/dl (0.2-1); Globulin 3.9 gm/dl (2.5-4.0); Total Protein 6.2 gm/dl (6.4-8.2)
[2018-12-07] MEDS: CITALOPRAM 40 MG TAB PO SCH (09:13)
[2018-12-07] MEDS: cefTRIAXone SODIUM 2,000 MG in DEXTROSE 5% 50 ML IV SCH (09:13)
[2018-12-07] MEDS: DOCUSATE SODIUM 100 MG CAP PO SCH ×3 (09:13→20:18)
[2018-12-07] MEDS: ASPIRIN 81 MG ECTAB PO SCH ×2 (09:13→20:16)
[2018-12-07] MEDS: FAMOTIDINE 20 MG TAB PO SCH ×2 (09:14→20:17)
[2018-12-07] MEDS: LOSARTAN POTASSIUM 25 MG TAB PO SCH (09:14)
[2018-12-07] MEDS: lamoTRIgine 100 MG TAB PO SCH ×2 (09:14→20:17)
[2018-12-07] MEDS: CEROVITE ADV FORMULA TAB PO SCH (09:14)
--- NOTE | 2018-12-07 09:23 | Orthopedic Progress Note ---
Date of Service December 07, 2018 Assessment & Plan (1) Post op infection: Overall she is doing fairly well with regards to her knee. The incision looks better. She grew out a coag negative staph with superficial wound cultures but nothing grew out deep. I still want to treat her with 6 weeks of Rocephin just to be cautious. She will follow-up with infectious disease. We will hopefully work on advancing her diet throughout the day today. If she can advance her diet then we may discharge her to home tomorrow. We will see how she does. Present on Admission?: Yes Subjective Gay was seen and examined at bedside this morning. Overall she is doing well. She is having less pain in the left knee. She has been ambulating. Unfortunately she is still on a clear liquid diet. Her nausea is getting b christopher. She has no new complaints. Physical Exam Musculoskeletal: On physical examination of the left knee, there is no signs of infection. The incision is open to air. She has 1 very small area of drainage in the central aspect of the incision. Otherwise it looks fine. Results & Data Vital Signs (Past 12 Hours) Vital Signs Temp Pulse Pulse Resp BP Pulse Ox 12/07/18 07:15 36.9 C 94 H 16 144/79 H 95 12/06/18 23:04 37.0 C 88 17 133/73 93 PG Care Time/CCT Total # of Minutes Spent Total Time Spent with Patient: Total time spent is greater than 50% in coordination of care (as documented) at patient's floor/unit and/or counseling patient:
--- NOTE | 2018-12-07 10:29 | Surgery Progress Note ---
Date of Service F/U SBO, pt is doing better, no vomiting, passed BM, she tolerated clear diet, December 07, 2018 Assessment & Plan (1) Small bowel obstruction due to adhesions: SBO, improved, passed BM, continue conservative treatment. Full liquid diet, will F/U Physical Exam Constitutional: WD/WN, vitals as above well developed and well nourished ENMT: external ear and nose normal, oropharynx normal Neck: trachea midline, no thyromegaly Respiratory: normal respiratory effort, lungs clear to auscultation normal respiratory effort Cardiovascular: RRR, no murmur, no edema Rate/Rhythm: regular rate and regular rhythm Gastrointestinal (Abdomen): Percussion/Palpation: abdomen soft NT, ND, middle line scar, BS + Musculoskeletal: left knee incision , Skin: no rashes, warm and dry Neurologic: awake Psychiatric: Orientation: alert and oriented x 3 Results & Data Vital Signs (Past 12 Hours) Vital Signs Temp Pulse Pulse Resp BP Pulse Ox 12/07/18 07:15 36.9 C 94 H 16 144/79 H 95 12/06/18 23:04 37.0 C 88 17 133/73 93 Laboratory Results Abnormal lab results 12/07/18 12/07/18 Range/Units 06:16 06:16 RBC 2.83 L (4.2-5.4) M/uL Hgb 8.1 L (12.0-16.0) g/dL Hct 25.2 L (37-47) % RDW Std Deviation 48.5 H (36.4-46.3) fL RDW Coeff of Christina 14.9 H (11.5-14.5) % Chloride 110 H (98-107) mmol/L AST 61 H (15-37) U/L ALT 79 H (12-78) U/L Alkaline Phosphatase 169 H (45-117) U/L Total Protein 6.2 L (6.4-8.2) gm/dl Albumin 2.3 L (3.4-5.0) gm/dl Albumin/Globulin Ratio 0.6 L (0.9-2)
--- NOTE | 2018-12-07 14:58 | Hospitalist Progress Note ---
Date of Service December 07, 2018 Assessment & Plan (1) Small bowel obstruction due to adhesions: diagnosed on CT abdomen/pelvis on 12/05 transition point is at a ventral hernia site, suspicious for adhesions patient thinks she had lysis of adhesions in the past she follows with Dr. Eliceo Dixon who performed her emergent bowel resection and ileostomy advance to full liquids, stop IV fluids KUB on 12/06 with persistent findings, but patient is moving her bowels general surgery following, for now plan for conservative measures see if we can advance diet tomorrow (2) Septic arthritis of knee, left: s/p TKA by Dr. Hagan a few weeks ago presented with WBC of 22k, pain in left knee, purulent drainage treat with Rocephin 2gm IV daily, will need 6 weeks total blood cultures no growth, WBC down to 9k taken for washout, antibiotic spacer on 12/02, tolerated well wound cultures growing coag negative staph, Group F beta strep (3) Post op infection: see above wound culture with coag neg staph, group F beta strep treat with Rocephin (4) Sepsis: sepsis due to septic TKA on the left, present on arrival vitals stable, no fever WBC down to 11k, repeat tomorrow no growth on blood cultures (5) Cellulitis of left knee: As above (6) Leukocytosis: going down to 9k, due to septic joint (7) Hypokalemia: Chronic issue, K is 4.0 today she has a difficult time tolerating PO supplements could be medication related, stop HCTZ can increase Losartan if hypertensive which raises K (8) Hypertension: BP is stable stopped HCTZ given her chronic low potassium, may not need this medication will also stop Verapamil will increase Losartan to 50mg daily (9) Hx of sarcoidosis: Currently stable no issues (10) Depression: Currently stable. Continue amitriptyline 50 mg p.o. nightly, continue citalopram 40 mg p.o. every morning, continue trazodone 150 mg p.o. every morni ng (11) Bipolar 1 disorder, depressed: See above, continue lamotrigine 100 mg p.o. twice daily (12) Seasonal allergies: Continue fluticasone propionate 50 MCG's spray 1 spray intranasal daily as needed for sneezing and allergy symptoms Subjective patient feeling a little better this morning, less pain, more of an appetite no nausea labs are stable d/w general surgery, can advance diet to full liquids she is moving her bowels orthopedics plans on possible d/c home tomorrow if her abdomen improves Review of Systems Review of Systems: All systems reviewed & are unremarkable except as noted in HPI & below Gastrointestinal: + early satiety and + diarrhea/loose stools; no abdominal pain, no nausea, no vomiting and no constipation Musculoskeletal: + joint pain (left knee) Physical Exam Constitutional: WD/WN, vitals as above + obese Eyes: PERRL, conjunctivae normal, anicteric sclerae ENMT: external ear and nose normal, oropharynx normal Neck: trachea midline, no thyromegaly Respiratory: normal respiratory effort, lungs clear to auscultation Cardiovascular: RRR, no murmur, no edema Gastrointestinal (Abdomen): normal bowel sounds, soft, nontender, no hepatosplenomegaly Musculoskeletal: Head/Neck/Chest: normocephalic and head atraumatic Extremities: + limited ROM of extremities (left knee) Skin: no rashes, warm and dry Neurologic: patellar DTR's 2+ bilat, sensation intact and PERRL, EOMI, accommodation nl, no face palsy, no dysarthria Psychiatric: A+Ox3, euthymic affect Lymphatic: no cervical or axillary lymphadenopathy Results & Data Vital Signs (Past 12 Hours) Vital Signs Temp Pulse Resp BP Pulse Ox 12/07/18 07:15 36.9 C 94 H 16 144/79 H 95 Laboratory Results Laboratory Results - last 24 hr 12/06/18 12/07/18 12/07/18 21:34 06:16 06:16 WBC 9.48 RBC 2.83 L Hgb 8.1 L Hct 25.2 L MCV 89.0 MCH 28.6 MCHC 32.1 RDW Std Deviation 48.5 H RDW Coeff of Christina 14.9 H Plt Count 276 MPV 8.5 Sodium 142 Potassium 4.0 Chloride 110 H Carbon Dioxide 23 Anion Gap 9.0 BUN 14 Creatinine 0.77 Est Cr Clr Drug Dosing 91.1 Est GFR ( Amer) 93.9 Est GFR (Non-Af Amer) 81.0 BUN/Creatinine Ratio 18.3 Glucose 70 Calcium 8.7 Total Bilirubin 0.5 AST 61 H ALT 79 H Alkaline Phosphatase 169 H Total Protein 6.2 L Albumin 2.3 L Globulin 3.9 Albumin/Globulin Ratio 0.6 L Stl C. diff Tox B Gene Negative Cdiff Gene Medications Administered Current Inpatient Medications Amitriptyline HCl (Elavil) 50 mg PO HS [facility] Stop: 12/31/18 20:59 Last Admin: 12/06/18 21:24 Dose: 50 mg Documented by: Aspirin (Ecotrin Ectab) 81 mg PO BID [facility] Stop: 12/31/18 20:59 Last Admin: 12/07/18 09:13 Dose: 81 mg Documented by: Bisacodyl (Dulcolax) 10 mg [place] DAILY PRN PRN Reason: Constipation Stop: 01/01/19 17:19 Citalopram Hydrobromide (Celexa) 40 mg PO QAM [facility] Stop: 01/01/19 08:59 Last Admin: 12/07/18 09:13 Dose: 40 mg Documented by: Docusate Sodium (Colace) 100 mg PO BID [facility] Stop: 01/01/19 20:59 Last Admin: 12/07/18 09:17 Dose: Not Given Documented by: Famotidine (Pepcid) 20 mg PO BID [facility] Stop: 01/05/19 08:59 Last Admin: 12/07/18 09:14 Dose: 20 mg Documented by: Fluticasone Propionate (Flonase) 1 sprays NA DAILY PRN PRN Reason: Congestion Stop: 12/31/18 19:08 Heparin Sodium (Porcine) (Heparin Sod 100 Unit/Ml Flush) 5 ml FLUSH PRN PRN PRN Reason: Flush Stop: 01/01/19 01:44 Last Admin: 12/07/18 12:37 Dose: 5 ml Documented by: Hydromorphone HCl (Dilaudid) 0.5 mg IV Q2H PRN PRN Reason: Pain Stop: 12/17/18 07:12 Last Admin: 12/03/18 21:31 Dose: 0.5 mg Documented by: Ceftriaxone Sodium 2,000 mg/ (Dextrose) 70 mls @ 100 mls/hr IV DAILY [facility]; Protocol Stop: 01/16/19 08:59 Last Infusion: 12/07/18 10:27 Dose: Infused Documented by: Ioversol (Optiray 320 100ml) 94 ml IV ONCE PRN PRN Reason: Interaction Checking Stop: 12/09/18 12:48 Last Admin: 12/05/18 12:49 Dose: 94 ml Documented by: Lamotrigine (Lamictal) 100 mg PO BID [facility] Stop: 12/31/18 20:59 Last Admin: 12/07/18 09:14 Dose: 100 mg Documented by: Losartan Potassium (Cozaar) 25 mg PO QAM [facility] Stop: 01/01/19 08:59 Last Admin: 12/07/18 09:14 Dose: 25 mg Documented by: Magnesium Hydroxide (Milk Of Magnesia) 30 ml PO Q6H PRN PRN Reason: Constipation Stop: 01/01/19 17:19 Metoclopramide HCl (Reglan) 10 mg IV Q6H PRN PRN Reason: Nausea/Vomiting Stop: 12/31/18 19:08 Last Admin: 12/07/18 12:37 Dose: 10 mg Documented by: Multivitamins/Minerals (Multivitamin W/ Minerals Tab) [facility] [place] [facility]: 01/01/19 08:59 Last Admin: 12/07/18 09:14 Dose: 1 tab Documented by: Naloxone HCl (Narcan) 0.1 mg IV Q5M PRN PRN Reason: Oversedation/Resp Depression Stop: 01/01/19 17:19 Ondansetron HCl (Zofran) 4 mg IV Q6H PRN PRN Reason: Nausea/Vomiting Stop: 12/31/18 19:08 Last Admin: 12/06/18 21:25 Dose: 4 mg Documented by: Oxycodone/Acetaminophen (Percocet 5mg/325mg) 1 - 2 tab PO Q4H PRN PRN Reason: Pain Stop: 12/15/18 19:08 Last Admin: 12/07/18 12:37 Dose: 2 tab Documented by: Ranitidine HCl (Zantac) [address] [facility] Stop: 12/31/18 20:59 Last Admin: 12/06/18 21:24 Dose: 300 mg Documented by: Sennosides (Senokot) 17.2 mg PO [facility] Stop: 01/01/19 20:59 Last Admin: 12/06/18 21:25 Dose: Not Given Documented by: Trazodone HCl (Desyrel) 150 mg PO [facility] Stop: 12/31/18 20:59 Last Admin: 12/06/18 21:25 Dose: 150 mg Documented by: PG Care Time/CCT Total # of Minutes Spent Total Time Spent with Patient: Total time spent is greater than 50% in coor dination of care (as documented) at patient's floor/unit and/or counseling patient: (1) Sepsis Sepsis acute organ dysfunction status: unspecified Sepsis type: sepsis due to unspecified organism Qualified Code(s): A41.9 - Sepsis, unspecified organism (2) Leukocytosis Leukocytosis type: unspecified Qualified Code(s): D72.829 - Elevated white blood cell count, unspecified
[2018-12-07] MEDS: SENNA 8.6 MG TAB PO SCH (20:17)
[2018-12-07] MEDS: TRAZODONE HCL 50 MG TAB PO SCH (20:17)
[2018-12-07] MEDS: AMITRIPTYLINE HCL 50 MG TAB PO SCH (20:18)
[2018-12-08] MEDS: HEPARIN 100 UNIT/ML 5ML FLUSH FLUSH PRN ×3 (05:39→12:45)
[2018-12-08 06:20] LABS: Hematocrit (blood only) 25.6 % (37-47); Hemoglobin 8.3 g/dL (12.0-16.0); Mean Corpuscular Hemoglobin 28.4 pg (25-34); Mean Corpuscular Hgb Conc 32.4 g/dL (32-36); Mean Corpuscular Volume 87.7 fL (80-100); Mean Platelet Volume 8.7 fL (7.4-10.4); Platelet Count 298 K/uL (130-400); RDW Coefficient of Variation 14.7 % (11.5-14.5); RDW Standard Deviation 46.7 fL (36.4-46.3); Red Blood Count 2.92 M/uL (4.2-5.4); White Blood Count 8.84 K/uL (4.8-10.8)
[2018-12-08 06:56] LABS: Albumin Level 2.3 gm/dl (3.4-5.0); Calcium 8.8 mg/dl (8.5-10.1); Creatinine Clr Calc Pharmacy 98.8 ml/min; Est GFR (African American) 103.6; Est GFR (Non-African American) 89.4; Potassium 3.7 mmol/L (3.5-5.1)
[2018-12-08 06:59] LABS: Albumin Globulin Ratio 0.6 (0.9-2); Bilirubin,Total 0.5 mg/dl (0.2-1); Total Protein 6.3 gm/dl (6.4-8.2)
[2018-12-08] MEDS: FAMOTIDINE 20 MG TAB PO SCH (07:57)
--- NOTE | 2018-12-08 08:01 | Orthopedic Progress Note ---
Date of Service December 08, 2018 Assessment & Plan (1) Post op infection: With regards to her knee she is doing fairly well. She will be on IV Rocephin for 6 weeks. Superficial knee cultures grew out a coag negative staph, but the deep cultures did not grow out anything. She is currently advancing her diet. Once she is on a full diet, and once the internal medicine team and the surgical team feel safe sending her home, she can be discharged home. She will follow-up with orthopedics on December 18 for suture removal. She will continue aspirin for DVT prophylaxis and oxycodone for pain control. A prescription for Rocephin has already been placed in the chart from the in fectious disease team. Present on Admission?: Yes Subjective Gay was seen and examined at bedside this morning. Overall she is doing fairly well. She has mild nausea. She is looking forward to advancing her diet. She is also looking forward to going home. She is not having too much pain in her left knee. She has no other complaints. Physical Exam Musculoskeletal: On physical examination of the left knee, the incision looks pretty good. There is still little bit of draining out of the central aspect. There is no erythema or signs of abscess formation. Results & Data Vital Signs (Past 12 Hours) Vital Signs Temp Pulse Pulse Resp BP Pulse Ox 12/08/18 07:53 36.6 C 81 20 147/70 H 98 12/07/18 23:22 36.6 C 85 15 149/69 H 98 PG Care Time/CCT Total # of Minutes Spent Total Time Spent with Patient: Total time spent is greater than 50% in coordination of care (as documented) at patient's floor/unit and/or counseling patient:
[2018-12-08] MEDS: CEROVITE ADV FORMULA TAB PO SCH (08:32)
[2018-12-08] MEDS: DOCUSATE SODIUM 100 MG CAP PO SCH (08:32)
[2018-12-08] MEDS: lamoTRIgine 100 MG TAB PO SCH (08:32)
[2018-12-08] MEDS: ASPIRIN 81 MG ECTAB PO SCH (08:33)
[2018-12-08] MEDS: CITALOPRAM 40 MG TAB PO SCH (08:33)
[2018-12-08] MEDS: cefTRIAXone SODIUM 2,000 MG in DEXTROSE 5% 50 ML IV SCH (08:35)
[2018-12-08] MEDS ORDERED: LOSARTAN POTASSIUM 50 MG TAB PO SCH (09:00)
--- NOTE | 2018-12-08 09:00 | Surgery Progress Note ---
Date of Service doing better, pt passed flatus and BM, no nausea, no vomiting, no abdominal pain, she tolerated full liquid diet. December 08, 2018 Assessment & Plan (1) Small bowel obstruction due to adhesions: SBO, improved, passed BM, continue conservative treatment. Full liquid diet, will F/U 12/08/2018 8:59am SBO resolved pt can be discharged home today, sign off today, F/U Dr. Parikh in 1-2 weeks Thanks, please call with questions, Subjective patient feeling a little better this morning, less pain, more of an appetite no nausea labs are stable d/w general surgery, can advance diet to full liquids she is moving her bowels orthopedics plans on possible d/c home tomorrow if her abdomen improves Physical Exam Constitutional: WD/WN, vitals as above well developed and well nourished ENMT: external ear and nose normal, oropharynx normal Neck: trachea midline, no thyromegaly Respiratory: normal respiratory effort, lungs clear to auscultation normal respiratory effort Cardiovascular: RRR, no murmur, no edema Rate/Rhythm: regular rate and regular rhythm Gastrointestinal (Abdomen): soft, NT, ND BS + Skin: no rashes, warm and dry Neurologic: awake Psychiatric: Orientation: alert and oriented x 3 Results & Data Vital Signs (Past 12 Hours) Vital Signs Temp Pulse Pulse Resp BP Pulse Ox 12/08/18 07:53 36.6 C 81 20 147/70 H 98 12/07/18 23:22 36.6 C 85 15 149/69 H 98
[2018-12-08] MEDS: OXYCODONE/ACETAMINOPHEN 5mg/325mg TAB PO PRN (10:29)
--- NOTE | 2018-12-08 11:47 | Discharge Summary ---
Date of Service December 08, 2018 Principal Diagnosis Post operative infection left total knee arthroplasty Discharge Exam Constitutional WD/WN, vitals as above + obese Eyes PERRL, conjunctivae normal, anicteric sclerae ENMT external ear and nose normal, oropharynx normal Neck trachea midline, no thyromegaly Respiratory normal respiratory effort, lungs clear to auscultation Cardiovascular RRR, no murmur, no edema Gastrointestinal (Abdomen) normal bowel sounds, soft, nontender, no hepatosplenomegaly (small ventral hernia) Musculoskeletal Head/Neck/Chest: normocephalic and head atraumatic Extremities: + limited ROM of extremities (left knee) Skin no rashes, warm and dry Neurologic patellar DTR's 2+ bilat, sensation intact and PERRL, EOMI, accommodation nl, no face palsy, no dysarthria Psychiatric A+Ox3, euthymic affect Lymphatic no cervical or axillary lymphadenopathy Discharge Data Allergies Allergy/AdvReac Type Severity Reaction Status Date / Time Cipro Allergy Mild RASH Verified 10/16/17 08:30 ciprofloxacin Allergy Mild RASH Verified 12/01/18 12:37 Quinolones Allergy Mild RASH Verified 12/01/18 12:37 sumatriptan AdvReac Mild PALPITATIONS, Verified 12/01/18 12:37 HEART RACING theophylline AdvReac Mild PALPITATIONS, Verified 12/01/18 12:37 HEART RACING prednisone AdvReac Unknown PALPITATIONS, Verified 12/01/18 12:37 NAUSEA epinephrine AdvReac TACHYCARDIA Verified 12/01/18 12:37 Consultations 12/01/18 15:52 ED Decision to Admit Stat 12/01/18 16:02 Consult Internal Medicine Stat 12/01/18 20:12 Consult Infectious Diseases Routine 12/02/18 17:20 Consult Case Management - Discharge Planning Routine 12/05/18 14:59 Consult General Surgery Routine Procedures Performed Operation Date: 12/02/18 07:00 Actual Procedures s Left Knee Incision and Drainage;(Left) - Nick Hagan DO p Poly Exchange(Left) - Nick Hagan DO Ordered Studies 12/01/18 12:31 US venous doppler LE LT Stat 12/05/18 12:29 CT abd pelvis IV con only Urgent 12/05/18 20:17 US liver Routine Hospital Course (1) Small bowel obstruction due to adhesions: diagnosed on CT abdomen/pelvis on 12/05 transition point is at a ventral hernia site, suspicious for adhesions patient thinks she had lysis of adhesions in the past she follows with Dr. Eliceo Dixon who performed her emergent bowel resection and ileostomy would be a partial small bowel obstruction, never had constipation tolerating low fiber diet, no pain, no nausea/vomiting she has been moving her bowels she plans to follow up with Dr. Lemus in his office to discuss if MARKY and hernia repair would be beneficial in the future (2) Septic arthritis of knee, left: s/p TKA by Dr. Hagan a few weeks ago presented with WBC of 22k, pain in left knee, purulent drainage treat with Rocephin 2gm IV daily, will need 6 weeks total set up for daily home IV antibiotic infusion via port blood cultures no growth, WBC normal taken for washout, hardware replacement on 12/02, tolerated well wound cultures growing coag negative staph, Group F beta strep (3) Post op infection: see above wound culture with coag neg staph, group F beta strep treat with Rocephin (4) Sepsis: sepsis due to septic TKA on the left, present on arrival vitals stable, no fever WBC down to 11k, repeat tomorrow no growth on blood cultures (5) Cellulitis of left knee: As above (6) Leukocytosis: resolved, due to septic joint (7) Hypokalemia: Chronic issue, K is 3.7 today she has a difficult time tolerating PO supplements could be medication related, stop HCTZ by increasing Losartan may be able to manage potassium without supplements (8) Hypertension: BP is 140/70 this AM after Losartan 50mg stopped HCTZ given her chronic low potassium, may not need this medication also stopped Verapamil 120mg increased Losartan to 50mg daily, recommend BP check in office this week if BP still elevated then increase Losartan to 100mg may be able to manage blood pressure and potassium with just one medication (9) Hx of sarcoidosis: Currently stable no issues (10) Depression: Currently stable. Continue amitriptyline 50 mg p.o. nightly, continue citalopram 40 mg p.o. every morning, continue trazodone 150 mg p.o. every morning (11) Bipolar 1 disorder, depressed: See above, continue lamotrigine 100 mg p.o. twice daily (12) Seasonal allergies: Continue fluticasone propionate 50 MCG's spray 1 spray intranasal daily as needed for sneezing and allergy symptoms Total Time Total Time Spent Total Time Spent (In Minutes): 36 minutes Total Time Includes: Examination of the Patient, Discharge Planning, Medication Reconciliation, Communication With Other Providers (discussed with surgery, orthopedics) and Other (discussed with case management) Discharge Plan Discharge Items Patient Disposition: Home - Home Health Services Reason For Visit: Postoperative infection of the left knee Discharge Diagnosis: Postoperative infection of the left knee Partial small bowel obstruction, resolving Activity: As commented below Non-emergency contact: Surgeon Call non-emergency contact if: your wound has increased redness and your wound has increased drainage Follow-up/Referrals: Pebbles Goldman CRNP [Primary Care Provider] - Diet: Low Fiber Addtl Attending Provider Instructions: Follow-up with Dr. Hagan on Sunday, December 18 for suture removal. Leave the incision open to air when you can. When you are up and about, cover it with a dressing if it is draining. You may shower normally if the incision has stopped draining. Take antibiotics as scheduled by infectious disease. ROCEPHIN 2gm IV daily, start tomorrow will need a total of 6 weeks Follow-up with infectious disease in 2-3 weeks, Dr. Sade Avila, [phone] MEDICATION CHANGES: - LOSARTAN: increased to 50mg daily, this serves two purposes, blood pressure control but also helps raise potassium follow up with Pebbles Goldman, if blood pressure still up in the office could increase this to 100mg - HYDROCHLOROTHIAZIDE, VERAPAMIL, POTASSIUM: all of these have been stopped hopefully with increasing Losartan can both manage your blood pressure and help control potassium recommend follow up with Pebbles Golmdan in one week for blood pressure check and recommend she check a BMP to look at potassium levels Partial small bowel obstruction: not a true obstruction as you continue to move bowels likely some adhesions at site of ventral hernia, cause small bowel to kink from time to time recommend follow up with Dr. Lemus in several weeks when you are recovered from your knee Pending Studies at Discharge: No Stand-Alone Forms: My [employer], Opioid Pain Management Medications and DC Order Prescriptions: New losartan 50 mg Tablet 50 mg PO QAM 30 Days Qty: 30 RF: 3 Continued citalopram 40 mg Tablet 40 mg PO QAM Qty: 0 RF: 0 amitriptyline 50 mg Tablet 50 mg PO HS Qty: 0 RF: 0 trazodone 150 mg Tablet 150 mg PO HS Qty: 0 RF: 0 fluticasone propionate 50 mcg/actuation spray,suspension 1 spray intranasal DAILY PRN (Reason: Congestion) RF: 0 ranitidine HCl [Zantac] 150 mg tablet 300 mg PO HS RF: 0 Centrum Silver Women 8 mg iron-400 mcg-300 mcg tablet 1 tab PO DAILY RF: 0 lamotrigine [Lamictal] 100 mg Tablet 100 mg PO BID RF: 0 oxycodone 5 mg Tablet 5 mg PO Q4H PRN (Reason: pain) Qty: 30 RF: 0 pantoprazole 40 mg tablet,delayed release (DR/EC) 40 mg PO BID RF: 0 aspirin [Ecotrin Low Strength] 81 mg Tablet,Delayed Release (Dr/Ec) 81 mg PO BID Qty: 84 RF: 0 Discontinued losartan 25 mg Tablet 25 mg PO QAM Qty: 0 RF: 0 potassium chloride [Klor-Con 10] 10 mEq tablet extended release 10 meq PO Q OTHER DAY RF: 0 hydrochlorothiazide 25 mg tablet 25 mg PO QAM RF: 0 verapamil 120 mg capsule,ext rel. pellets 24 hr 120 mg PO QAM RF: 0 Discharge Orders: Discharge Order (Routine); Ordered 12/08/18 Ordered By: Jet Summers Admission Data Admit Date/Time: 12/04/18 12:18 Attending Provider: Nick Hagan Admit Provider: Radu Ruff Primary Care Provider: Pebbles Goldman Other Providers: Jet Summers ; Radu Ruff ; Murphy Pate Jennifer ; Eliceo Dixon Other Interventions: Discharge Summary Assessment (RN) Last Done: 12/08/18 11:21
== END 2018-12-08 13:22 | disposition home health service (06) | DRG 485 ==
LOC: ED 11:39 → 3W 17:15 → INTOOBSV 17:15 → 3W 18:11